=== PATIENT | female | born 1980 | race Caucasian/White ===

== ENCOUNTER → 2017-12-21 09:34 | Outpatient (CLI) | payer MEDICAID, SELFPAY ==
--- NOTE | 2017-12-21 09:47 | RAD_ITS ---
STUDY: X-RAY - LUMBAR SPINE REASON FOR EXAM: Female, 37 years old. Low back pain. TECHNIQUE: 5 view(s) of the lumbar spine were obtained including oblique views. COMPARISON: None FINDINGS: There is straightening of the normal lumbar lordosis. There is no substantial scoliosis. There is a normal alignment of the vertebrae. Normal vertebral bodies and endplates. Normal disc space heights. Surgical clips are seen in the right upper quadrant most likely secondary to prior cholecystectomy. There is evidence of bilateral tubal ligation. RAD/L/S Spine Min 4 Views IMPRESSION: Straightening of the normal lumbar lordosis. Electronically Signed: Rodrigo Arreola MD at 14:20 EST Tel [phone], Service support ,
--- NOTE | 2017-12-21 09:47 | RAD_ITS ---
STUDY: X-RAY - PELVIS AND BILATERAL HIPS REASON FOR EXAM: Female, 37 years old. Left hip pain. TECHNIQUE: Radiological exam, hip, bilateral, with pelvis when performed; minimum of 5 views COMPARISON: None. FINDINGS: Moderate amount of fecal material is seen in the colon. There is evidence of prior bilateral tubal ligation. There are multiple calcified phleboliths. Normal bilateral iliac wings, sacroiliac joints and visualized sacrum. Normal bilateral superior and inferior pubic rami. There is narrowing with sclerosis of the pubic symphysis. Normal bilateral ischial tuberosities. Normal visualized right femoral head. Normal right acetabulum. Normal right hip joint. Normal visualized left femoral head. Normal left acetabulum. Normal left hip joint. RAD/Hips B/L min 2 views w/ Pelvis IMPRESSION: Normal x-ray examination of the pelvis and bilateral hips. Electronically Signed: Rodrigo Arreola MD at 14:19 EST Tel [phone], Service support ,
[2017-12-21 12:12] LABS: Absolute Lymphocyte Count 1.32 X10^3/ul (0.83-4.51); Absolute Neutrophil Count 3.9 X10^3/uL (2.0-7.7); Basophil# 0.06 X10^3/uL; Eosinophil# 0.28 X10^3/uL; Eosinophils% 4.8 % (0-5); Hematocrit 39.1 % (37-47); Hemoglobin 12.9 g/dl (12.0-15.0); Lymphocyte # 1.32 X10^3/ul (4.0); Lymphocyte % 22.4 % (19-41); Mean Corpuscular Hgb 29.2 pg (27.0-32.0); Mean Corpuscular Volume 88.5 fL (81-99); Mean Platelet Vol. 9.6 fl (6.2-12.0); Monocyte# 0.33 X10^3/uL; Monocyte% 5.6 % (0-10); Neutrophil # 3.89 X10^3/uL (2.7-7.7); Neutrophil % 66.2 % (47-70); Platelet Count 218 K/mm3 (150-450); RBC Distribution Width CV 13.1 % (11.6-14.6); RBC Distribution Width SD 42.4 fl (35.1-43.9); Red Blood Count 4.42 M/mm3 (4.2-5.4); White Blood Count 5.9 K/mm3 (4.4-11.0)
[2017-12-21 12:14] LABS: POSITIVE COUNT NO; POSITIVE DIFFERENTIAL NO; POSITIVE MORPHOLOGY NO
[2017-12-21 12:32] LABS: AST(SGOT) 18 U/L (15-37); Alanine Aminotransfer ALT/SGPT 26 U/L (13-56); Albumin, Serum 3.7 g/dL (3.2-5.0); Alkaline Phosphatase 49 U/L (45-117); Anion Gap 9 (5-15); BUN 11 mg/dL (7-18); BUN/Creat Ratio 13.5 RATIO (10-20); Calcium,Total 8.5 mg/dL (8.5-10.1); Chloride 108 mmol/L (98-107); Cholesterol 194 mg/dL (200); Creatinine, Serum 0.82 mg/dL (0.55-1.02); EST Glomerular Filtration Rate 83 mL/min (>60); Est Glom Filt Rate - Afr Amer 101 mL/min (>60); Globulin 3.7 g/dL (2.2-4.2); Glucose 87 mg/dL (74-106); High Density Lipoprotein 60 mg/dL; Potassium 3.9 mmol/L (3.5-5.1); Protein, Total 7.4 g/dL (6.4-8.2); Sodium Level 141 mmol/L (136-145); T4 Free Direct 1.03 ng/dL (0.76-1.46); Thyroid Stim Hormone (TSH) 1.87 uIU/mL (0.358-3.74); Triglycerides 132 mg/dL; Very Low Density Lipoprotein 26 mg/dL (5-40)
== END ==
LOC: MFPLAB 09:39 → MTRAD 09:42
PROVIDERS: Family Provider Family Medicine; PCP Family Medicine; Visit Provider Family Medicine
DX: M54.16 Radiculopathy, lumbar region (principal); M25.551 Pain in right hip; M25.552 Pain in left hip; E66.9 Obesity, unspecified; Z13.220 Encounter for screening for lipoid disorders; Z83.49 Family history of other endocrine, nutritional and metabolic diseases
CPT/HCPCS: 36415; 72110; 73521; 80053; 80061; 84439; 84443; 85025

== ENCOUNTER → 2018-02-15 10:15 | Outpatient (CLI) | payer MEDICAID, SELFPAY ==
[2018-02-21 13:11] LABS: HPV Reflexed? NOT INDICATED
== END ==
PROVIDERS: Family Provider Family Medicine; PCP Family Medicine; Visit Provider Family Medicine
DX: Z01.419 Encounter for gynecological examination (general) (routine) without abnormal findings (principal)
CPT/HCPCS: 88175; G0145

== ENCOUNTER → 2018-08-27 15:21 | Outpatient (CLI) | payer MEDICAID, SELFPAY ==
[2018-08-27 18:16] LABS: Follicle Stimulating Hormone 2.8 mIU/mL; Luteinizing Hormone 9.3 mIU/mL; Thyroid Stim Hormone (TSH) 1.49 uIU/mL (0.358-3.74)
[2018-08-31 13:20] LABS: Estrogen, Total, Serum 111 pg/mL (.)
== END ==
PROVIDERS: Family Provider Family Medicine; PCP Family Medicine; Visit Provider Family Medicine
DX: R23.2 Flushing (principal)
CPT/HCPCS: 36415; 82672; 83001; 83002; 84443

== ENCOUNTER → 2018-12-18 15:51 | Outpatient (CLI) | payer MEDICAID, SELFPAY ==
--- NOTE | 2018-12-18 15:55 | RAD_ITS ---
STUDY: X-RAY - RIGHT ANKLE REASON FOR EXAM: Female, 38 years old. Ankle sprain, pain laterally TECHNIQUE: 3 view(s) of the ankle. COMPARISON: None. FINDINGS: Normal visualized distal tibia and fibula. Normal medial and lateral malleoli. Normal tibiotalar articulation and ankle mortise. Normal visualized talus and calcaneus. The visualized subtalar, talonavicular, calcaneocuboid and tarsal articulations are normal. The soft tissue structures are unremarkable. RAD/Ankle min 3 Views IMPRESSION: Normal x-ray examination of the ankle. Electronically Signed: Newton Mitchell MD at 20:40 EST , Service support ,
== END ==
PROVIDERS: Family Provider Family Medicine; PCP Family Medicine; Referring Provider Family Medicine; Visit Provider Family Medicine
DX: S93.401A Sprain of unspecified ligament of right ankle, initial encounter (principal); X58.XXXA Exposure to other specified factors, initial encounter; Y93.9 Activity, unspecified; Y92.9 Unspecified place or not applicable; Y99.9 Unspecified external cause status
CPT/HCPCS: 73610

== ENCOUNTER → 2019-03-12 14:55 | Outpatient (CLI) | payer MEDICAID, SELFPAY ==
--- NOTE | 2019-03-12 15:00 | RAD_ITS ---
STUDY: X-RAY - LEFT HAND REASON FOR EXAM: Female, 38 years old. Left hand pain for couple weeks TECHNIQUE: 3 view(s) of the hand. COMPARISON: None. FINDINGS: Normal radiocarpal articulation. Normal distal radioulnar joint. Normal visualized carpal bones. Normal carpal articulations Normal carpometacarpal articulation of the thumb. Normal second through fifth carpometacarpal joints. Normal metacarpi. Normal metacarpophalangeal joint of the thumb. Normal interphalangeal joint of the thumb. Normal proximal and distal phalanges of the thumb. Normal metacarpophalangeal joints of the second through fifth fingers. Normal proximal and distal interphalangeal joints of the second through fifth fingers. Normal phalanges of the second through fifth fingers. The soft tissue structures are unremarkable. RAD/Hand Min 3 Views IMPRESSION: Normal x-ray examination of the hand. Electronically Signed: Julio Cesar Malloy MD at 13:33 EDT , Service support ,
== END ==
PROVIDERS: Family Provider Family Medicine; PCP Family Medicine; Referring Provider Family Medicine; Visit Provider Family Medicine
DX: Z00.00 Encounter for general adult medical examination without abnormal findings (principal); M25.549 Pain in joints of unspecified hand
CPT/HCPCS: 73130

== ENCOUNTER → 2020-04-19 12:40 | Outpatient (CLI) | payer MEDICAID, SELFPAY ==
--- NOTE | 2020-04-19 12:45 | RAD_ITS ---
STUDY: X-RAY - RIGHT ANKLE REASON FOR EXAM: Female, 39 years old. Pain. TECHNIQUE: 3 view(s) of the ankle. COMPARISON: Comparison is made with prior examination dated December 18, 2018. FINDINGS: Normal visualized distal tibia and fibula. Normal medial and lateral malleoli. Normal tibiotalar articulation and ankle mortise. Normal visualized talus and calcaneus. The visualized subtalar, talonavicular, calcaneocuboid and tarsal articulations are normal. The soft tissue structures are unremarkable. RAD/Ankle min 3 Views IMPRESSION: Normal x-ray examination of the ankle. Electronically Signed: Rodrigo Arreola, at 15:07 EDT , Service support ,
== END ==
PROVIDERS: PCP Family Medicine; Referring Provider Family Medicine; Visit Provider Family Medicine
DX: M25.571 Pain in right ankle and joints of right foot (principal)
CPT/HCPCS: 73610

== ENCOUNTER → 2020-11-09 15:46 | Outpatient (CLI) | payer MEDICAID, SELFPAY ==
--- NOTE | 2020-11-09 15:50 | RAD_ITS ---
STUDY: X-RAY - LEFT HAND REASON FOR EXAM: Female, 40 years old. Left second digit pain/swelling after recent injury TECHNIQUE: 3 view(s) of the hand. COMPARISON: Comparison is made with prior study dated 03/12/2019. FINDINGS: Normal radiocarpal articulation. Normal distal radioulnar joint. Normal visualized carpal bones. Normal carpal articulations Normal carpometacarpal articulation of the thumb. Normal second through fifth carpometacarpal joints. Normal metacarpi. Normal metacarpophalangeal joint of the thumb. Normal interphalangeal joint of the thumb. Normal proximal and distal phalanges of the thumb. Normal metacarpophalangeal joints of the second through fifth fingers. Normal proximal and distal interphalangeal joints of the second through fifth fingers. Normal phalanges of the second through fifth fingers. The soft tissue structures are unremarkable. RAD/Hand Min 3 Views IMPRESSION: Normal x-ray examination of the hand. Electronically Signed: Rodrigo Arreola, at 16:02 EST , Service support ,
== END ==
PROVIDERS: PCP Family Medicine; Referring Provider Family Medicine; Visit Provider Family Medicine
DX: M79.645 Pain in left finger(s) (principal)
CPT/HCPCS: 73130

== ENCOUNTER → 2021-02-14 14:12 | Outpatient (CLI) | payer MEDICAID, SELFPAY ==
--- NOTE | 2021-02-14 14:14 | RAD_ITS ---
STUDY: X-RAY - RIGHT FOOT CLINICAL: Right foot pain for a few days, no specific injury. TECHNIQUE: 3 view(s) of the foot. COMPARISON: Radiographs of the right ankle 12/18/2018. FINDINGS: Normal talus, calcaneus, and tarsal bones. Normal visualized subtalar, talonavicular, calcaneocuboid, tarsal and tarsometatarsal articulations. Normal metatarsi. Normal metatarsophalangeal joint of the great toe. Normal tibial and fibular sesamoid bones. Normal interphalangeal joint of the great toe. Normal phalanges of the great toe. Normal second through fifth metatarsophalangeal joints. Normal interphalangeal joints and phalanges of the lesser toes. The soft tissue structures are unremarkable. RAD/Foot min 3 Views IMPRESSION: Normal x-ray examination of the right foot. Electronically Signed: Vciente Sellers MD at 14:50 EDT Tel , Service support ,
== END ==
PROVIDERS: PCP Family Medicine; Referring Provider Nurse Practitioner Family; Visit Provider Nurse Practitioner Family
DX: M79.671 Pain in right foot (principal)
CPT/HCPCS: 73630

== ENCOUNTER → 2021-07-05 10:26 | Outpatient (CLI) | payer MEDICAID, SELFPAY ==
[2021-07-05 10:28] LABS: Lyme Ab Screen Interpretation REF LAB
--- NOTE | 2021-07-05 10:32 | RAD_ITS ---
STUDY: X-RAY - LEFT KNEE REASON FOR EXAM: Female, 41 years old. Joint pain. TECHNIQUE: 4 view(s) of the knee. COMPARISON: None. FINDINGS: Normal visualized distal femur. Normal visualized proximal tibia and fibula. Normal proximal tibiofibular articulation. Normal medial femorotibial compartment. Normal lateral femorotibial compartment. Normal patellofemoral articulation. The soft tissue structures are unremarkable. RAD/Knee 4 or More Views IMPRESSION: No abnormality of the left knee. No acute abnormality, erosive changes or periostitis. Electronically Signed: Evgeny Hamilton MD at 11:39 EDT , Service support ,
--- NOTE | 2021-07-05 10:33 | RAD_ITS ---
STUDY: X-RAY - RIGHT KNEE REASON FOR EXAM: Female, 41 years old. Maintained. TECHNIQUE: 4 view(s) of the knee. COMPARISON: None. FINDINGS: Normal visualized distal femur. Normal visualized proximal tibia and fibula. Normal proximal tibiofibular articulation. Mild medial compartmental narrowing without osteophyte formation. Normal lateral femorotibial compartment. Normal patellofemoral articulation. The soft tissue structures are unremarkable. 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 No other abnormality. Electronically Signed: Evgeny Hamilton MD at 11:39 EDT , Service support ,
[2021-07-05 12:12] LABS: Absolute Lymphocyte Count 1.27 X10^3/uL (0.83-4.51); Absolute Neutrophil Count 4.6 X10^3/uL (2.0-7.7); Basophil# 0.06 X10^3/uL; Basophil% 0.9 % (0-1); Eosinophil# 0.23 X10^3/uL; Eosinophils% 3.6 % (0-5); Hematocrit 39.1 % (37-47); Hemoglobin 12.8 g/dL (12.0-15.0); Lymphocyte # 1.27 X10^3/ul (0.83-4.51); Lymphocyte % 19.8 % (19-41); Mean Corp Hgb Conc 32.7 g/dL (32-36); Mean Corpuscular Hgb 29.4 pg (27.0-32.0); Mean Corpuscular Volume 89.7 fL (81-99); Mean Platelet Vol. 9.5 fl (6.2-12.0); Monocyte% 4.7 % (0-10); NRBC Flagged by Analyzer 0 % (0-5); Neutrophil # 4.55 X10^3/uL (2.7-7.7); Neutrophil % 70.8 % (47-70); Platelet Count 261 K/mm3 (150-450); RBC Distribution Width CV 12.7 % (11.6-14.6); RBC Distribution Width SD 41.4 fl (35.1-43.9); Red Blood Count 4.36 M/mm3 (4.2-5.4); White Blood Count 6.4 K/mm3 (4.4-11.0)
[2021-07-05 12:37] LABS: Vitamin B12 386 pg/mL (211-911); Vitamin D,25 Hydroxy 18.6 ng/mL
[2021-07-05 12:44] LABS: AST(SGOT) 13 U/L (15-37); Alanine Aminotransfer ALT/SGPT 25 U/L (13-56); Albumin, Serum 3.7 g/dL (3.2-5.0); Alkaline Phosphatase 51 U/L (45-117); Anion Gap 2 (5-15); BUN 14 mg/dL (7-18); BUN/Creat Ratio 17.7 RATIO (10-20); Calcium,Total 8.9 mg/dL (8.5-10.1); Chloride 109 mmol/L (98-107); Creatinine, Serum 0.79 mg/dL (0.55-1.02); EST Glomerular Filtration Rate 85 mL/min (>60); Est Glom Filt Rate - Afr Amer 103 mL/min (>60); Globulin 3.8 g/dL (2.2-4.2); Glucose 91 mg/dL (74-106); Potassium 4.1 mmol/L (3.5-5.1); Protein, Total 7.5 g/dL (6.4-8.2); Sodium Level 139 mmol/L (136-145); Thyroid Stim Hormone (TSH) 1.61 uIU/mL (0.358-3.74)
[2021-07-06 14:20] LABS: Lyme Scn Total Ab w/Rflx <0.91 ISR (0.00-0.90)
== END ==
PROVIDERS: PCP Family Medicine; Referring Provider Family Medicine; Visit Provider Family Medicine
DX: M25.50 Pain in unspecified joint (principal); R53.83 Other fatigue; W57.XXXA Bitten or stung by nonvenomous insect and other nonvenomous arthropods, initial encounter
CPT/HCPCS: 36415; 73564; 80053; 82306; 82607; 84443; 85025; 86618

== ENCOUNTER 2021-08-01 05:25 | Day surgery (SDC) | payer MEDICAID, SELFPAY ==
[2021-08-01] VITALS (7 sets, daily range): BP systolic 106–110; BP diastolic 73–79; PULSE 58–66; RESP 16; TEMP 36.5–36.6; O2SAT 96–99; BMI 35.9
--- NOTE | 2021-08-01 | EGD_PTH ---
PATIENT: BERNARDINO GERARD LOC: EN U#:[id number] AGE/SX: 41/F ROOM: RE08/01/[address]: Dr. Luis Cain MD : 1980 BED: DIS: 08/01/2021 SPEC #: [id number] RECD: 08/01/21 09:41 STATUS: ROEL ALBERTO #: [id number] LEODAN: 08/01/21 00:[address]: Luis Cain DEPT: SURGICAL PATHOLOGY RECD BY: Bassem Jin ENTERED: 08/01/21 12:06 SP TYPE: EGD BIOPSY OT DR: Dr. Brian Garcia MD Tissues: A - Duodenum, NOS B - Gastric mucous membrane C - Stomach, NOS D - Esophageal mucous membrane E - Esophageal mucous membrane Procedures: Special Stain Group II Surgery Specimen Level IV Alcian Blue/PAS (control) HEADER OPERATION: EGD ([facility]) PRE-OP DIAGNOSIS: GERD TISSUE SUBMITTED: A ? Duodenum biopsy, B ? Antrum biopsy for histo and H. pylori, C ? Greater curvature polyp biopsy, D ? Distal esophagus biopsy, E ? Mid esophagus biopsy MICROSCOPIC DIAGNOSIS A. Duodenum, biopsy: Mild nonspecific chronic inflammation. B. Gastric antrum, biopsy: Chronic gastritis. See comment. C. Greater gastric curvature polyp, biopsy: Fundic gland polyp. D. Distal esophagus, biopsy: Consistent with changes of reflux. Gastroesophageal junctional mucosa with chronic inflammation. No evidence of goblet cell metaplasia. See comment. E. Mid esophagus, biopsy: Focal changes of reflux. AM:kem 08/02/2021 COMMENT B. The results of immunohistochemistry for Helicobacter pylori will be reported separately ([id number]). D. Alcian blue/PAS stain with matched control supports the above diagnosis. MICROSCOPIC DESCRIPTION Slides are reviewed. GROSS DESCRIPTION A - Received in fixative is one container labeled with the patient's name and designated duodenum biopsy. The specimen consists of multiple irregular fragments of light villafuerte soft tissue that in aggregate measure 0.5 x 0.5 x 0.1 cm. The specimen is totally submitted in one cassette. B - Received in fixative is one container labeled with the patient's name and designated antrum biopsy. The specimen consists of one irregular fragment of light villafuerte soft tissue that measures 0.6 x 0.3 x 0.1 cm. The specimen is totally submitted in one cassette. C - Received in fixative is one container labeled with the patient's name and designated greater curvature polyp. The specimen consists of one irregular fragment of light villafuerte soft tissue that measures 0.3 x 0.3 x 0.1 cm. The specimen is totally submitted in one cassette. D - Received in fixative is one container labeled with the patient's name and designated distal esophagus biopsy. The specimen consists of multiple irregular fragments of light villafuerte soft tissue that in aggregate measure 2 x 0.6 x 0.1 cm. The specimen is totally submitted in one cassette. E - Received in fixative is one container labeled with the patient's name and designated mid esophagus biopsy. The specimen consists of multiple irregular fragments of light villafuerte soft tissue that in aggregate measure 0.6 x 0.2 x 0.1 cm. The specimen is totally submitted in one cassette. / AM:kem 08/01/21 TC:3 CPT: 05993 x5, 36400
--- NOTE | 2021-08-01 05:45 | PCM.HP.BLA ---
History and Physical Date of Admission: 08/01/21 Visit Reasons: Gastroesophageal reflux disease (GERD) Chief Complaint: gerd [employer] Required: No Is patient in pain?: No Allergies acetaminophen [From Vicodin] Allergy (Mild, Verified 07/18/21 15:01) Other adhesive tape Allergy (Mild, Verified 07/18/21 15:01) PT UNSURE OF REACTION hydrocodone [From Vicodin] Allergy (Mild, Verified 07/18/21 15:01) Other Medications ergocalciferol (vitamin D2) 50 mcg (2,000 unit) capsule 50 mcg PO DAILY 07/18/21 [History Confirmed 07/18/21] famotidine 10 mg tablet 10 mg PO DAILY 07/18/21 [History Confirmed 07/18/21] omeprazole 40 mg capsule,delayed release 40 mg PO DAILY 07/18/21 [History Confirmed 07/18/21] PFS Medical History Gastroesophageal reflux disease Surgical History S/P appendectomy S/P endometrial ablation S/P laparoscopic cholecystectomy S/P tonsillectomy and adenoidectomy S/P tubal ligation Family History Brother Asthma CAD (coronary artery disease) CVA (cerebral vascular accident) Mother Thyroid disorder Daughter Seizures Social History Smoking Status: Former smoker alcohol intake: never HPI: BERNARDINO GERARD, is a 41 F who presents to the office today for surgical consultation regarding reflux disease. The patient is also having esophageal dysphagia. Her reflux heartburn has been going on for multiple years. Within the past year she has had more difficulty swallowing particularly potatoes and pineapple. She states however that she likes potatoes and pineapple and continues to consume them. She has been taking famotidine 20 mg nightly. She has also been taking some type of truly [id number] antacid. Just recently she was placed on omeprazole 40 [address] daily therapy per Dr Brian Garcia. She also states that for him will milkshakes help calm her discomfort. Apparently sometimes she has episodes of vomiting. In the past she has elevated head of her bed but now they have foregone that because they do not feel it makes any improvement. The patient is referred by Dr Brian Garcia and a written copy of my surgical consult and recommendations will return to him Approximately June 2020 they had COVID-19. She had loss of taste. She denies any residual symptoms. Neither she nor her have been vaccinated. She has not had a previous upper endoscopy. The patient states that she has a significant gag response. Body weight is 237 pounds. BMI is approximately 35. Her previous abdominal surgery included a complicated ruptured appendicitis done through an open right lower quadrant incision. She has had a previous cholecystectomy. Previous oophorectomy. Previous tubal ligation. She denies history of DVT ROS General General: Yes fatigue; No weight change, appetite, colon cancer, breast cancer or weakness HEENT HEENT: No difficulty swallowing, eye injury, eye surgery, swollen glands or hoarseness Endo Endocrine: No thyroid disease, diabetes mellitus, thyroid cancer, Hair loss, heat intolerance or cold intolerance Skin Skin: No rash or changing moles Breast Breast: No left breast lump, right breast lump, nipple discharge, breast pain, abnormal mammogram, abnormal US or breast enlargement Musc Musculoskeletal: Yes arthritis; No back problems, rheumatoid arthritis, gout or joint pain Cardio Cardiovascular: No murmur, pacemaker, heart disease, atrial fibrillation, high blood pressure, heart attack, heart stent, palpitations, shortness of breat with exertion or chest pain Psych Psychiatric: No depression, anxiety or hearing voices Resp Respiratory: No shortness of breath, No sleep apnea, Yes cough, No COPD, Yes asthma, No emphysema and No wheezing Gastro Gastrointestinal: No abdominal pain, No nausea or vomiting, No diarrhea, No constipation, No blood in stool, Yes acid reflux, No hemorrhoids, No ulcers, No gallbladder problem and No black,tarry stools Blue Hematologic: No blood thinners, No blood disorders, No bleeding, No anemia and No blood clots Neuro Neurologic: No system reviewed and no additional complaints, except as documented, No as per HPI, No abnormal gait, No abnormal hearing, No abnormal movements, No abnormal speech, No behavioral changes, No burning sensations, No confusion, No convulsions, No disequilibrium, No dizziness, No localized weakness, No frequent falls, No headache(s), No lack of coordination, No loss of vision, No memory loss, No numbness, No other visual disturbances, No radicular pain, No restless legs, No sensory deficit, No syncope, No tingling, No tremor(s), No weakness and No other Exam Const General: cooperative, comfortable and no acute distress Nutritional Appearance: obese Orientation: alert and awake HENRI Head: normal to inspection Eyes General: appearance normal, both eyes and all related structures Resp Effort & Inspection: normal respiratory effort Auscultation: clear to auscultation bilaterally Cardio Rate: regular rate Rhythm: regular rhythm GI Palpation: soft and no hepatosplenomegaly Auscultation: normal bowel sounds Skin General: no rashes or lesions noted Neuro Cognition: normal cognition Extrem General: no calf tenderness Psych Affect: normal affect COVID (Procedure Consent) Procedure Criteria Procedure Criteria: Yes Elective The surgeon/proceduralist and patient have discussed in detail the risk of exposure to and/or potential harm posed by the COVID-19 virus with having a surgery/procedure at this time versus the risk of delaying the surgery/procedure. It is not possible to know either the risk of delaying the surgery or procedure or chance of getting an infection with perfect accuracy, but a joint decision was made between the patient and the surgeon/proceduralist to proceed at this time with the scheduled surgery/procedure as indicated on the consent form. Assessment and Plan Assessment and Plan (1) Gastroesophageal reflux disease: Qualifiers: Esophagitis presence: esophagitis presence not specified Qualified Code(s): K21.9 - Gastro-esophageal reflux disease without esophagitis Plan - Dr. Luis Cain MD: Findings consistent with long-term gastroesophageal reflux disease. The patient appears to have specific food intolerances making the question of eosinophilic esophagitis a potential. She is having some esophageal dysphagia and may have some stricturing. I propose for her a esophagogastroduodenoscopy. Because of her gag reflex I recommend monitored anesthesia care. I have discussed the risk, benefit, alternatives. If an esophageal stricture is present I have discussed with her proceeding with esophageal dilatation at that same setting. She is aware of increased risk of dilatation in the presence of eosinophilic esophagitis. I additionally proposed again conservative measures like avoiding reflux potentiating foods and not eating within 2 hours of sleep and avoiding alcohol and head of bed elevation etc. I am not sure however that the patient is interested in pursuing these. I appreciate the opportunity of assisting with her surgical care. We will schedule and expedite her investigation. Copy: Dr Brian Cain M.D., F.A.C.S. I have re-examined the patient. There are no clinical changes since date of exam.
--- NOTE | 2021-08-01 06:30 | IMM_PTH ---
PATIENT: BERNARDINO GERARD LOC: EN U#:[id number] AGE/SX: 41/F ROOM: RE08/01/[address]: Dr. Luis Cain MD : 1980 BED: DIS: 08/01/2021 SPEC #: [id number] RECD: 08/01/21 14:36 STATUS: ROEL REKim #: [id number] LEODAN: 08/01/21 06:[address]: Luis Cain DEPT: IMMUNOHISTOCHEMISTRY RECD BY: Shikha Lee ENTERED: 08/01/21 14:38 SP TYPE: IMMUNO OTHR DR: Dr. Brian Garcia MD Tissues: B - Stomach, NOS Procedures: H Pylori (initial) PHYSICIAN & INSTITUTION [place] [id number] SPECIMEN INFORMATION: Tissue Source: B ? Antrum biopsy Clinical Info: GERD Specimen Number: [id number] CPT code: 07298 METHODOLOGY: Deparaffinized sections of prefer/formalin-fixed tissue or PAP/DQ stained slides are incubated with monoclonal/polyclonal antibodies/oligonucleotide probes. Localization is made via biotin free immunoperoxidase method. Appropriate controls are performed and reacted as expected. Results on target cell population are indicated in the following table: RESULTS: ANTIBODY / CLONE RESULT Block B H Pylori (polyclonal) negative These tests were developed and their performance characteristics determined by [facility]. They may not have been cleared or approved by the U.S. Food and Drug Administration. The FDA has determined that such clearance or approval is not necessary. INTERPRETATION: B. Antrum biopsy: Negative for Helicobacter pylori organisms. AM:kem 08/02/2021
--- NOTE | 2021-08-01 06:51 | OP.CCLET_ITS ---
08/01/2021 Brian Garcia [address] [place] [address] Re : Upper GI endoscopy procedure for Swetha Hinojosa Dear Dr. Garcia This procedure was performed on Sunday, August 01, 2021. My impressions and recommendations are as follows: Impressions : - LA Grade A reflux esophagitis. Rule out Rodriguez's esophagus. Biopsied. - Normal middle third of esophagus. Biopsied. - Z-line irregular, 40 cm from the incisors. - Medium-sized hiatal hernia. - Multiple gastric polyps. Resected and retrieved. - Erythematous mucosa in the antrum. Biopsied. - Normal examined duodenum. Biopsied. Recommendations : - Discharge patient to home. - Resume previous diet. - Continue present medications. - Return to my office in 1 week. My findings are described in the full procedure note, which is enclosed. If I can be of further assistance, please feel free to contact me at Doctor phone number(s): Work: . Sincerely, Luis Cain MD 08/01/2021 6:50:03 AM This report has been signed electronically.
--- NOTE | 2021-08-01 06:51 | OP.EGD_ITS ---
Patient Name: Swetha Hinojosa Procedure Date: 08/01/2021 6:16 AM Date of : 1980 Age: 41 Procedure: Upper GI endoscopy Indications: Suspected esophageal reflux Providers: Luis Cain MD Medicines: See the Anesthesia note for documentation of the administered medications Complications: No immediate complications. Procedure: Pre-Anesthesia Assessment: - Prior to the procedure, a History and Physical was performed, and patient medications and allergies were reviewed. The patient's tolerance of previous anesthesia was also reviewed. The risks and benefits of the procedure and the sedation options and risks were discussed with the patient. All questions were answered, and informed consent was obtained. Prior Anticoagulants: The patient has taken no previous anticoagulant or antiplatelet agents. ASA Grade Assessment: II - A patient with mild systemic disease. After reviewing the risks and benefits, the patient was deemed in satisfactory condition to undergo the procedure. After obtaining informed consent, the endoscope was passed under direct vision. Throughout the procedure, the patient's blood pressure, pulse, and oxygen saturations were monitored continuously. The Endoscope was introduced through the mouth, and advanced to the second part of duodenum. The upper GI endoscopy was accomplished without difficulty. The patient tolerated the procedure well. Scope In: 6:33:01 AM Scope Out: 6:42:29 AM Total Procedure Duration Time 0 hours 9 minutes 28 seconds Findings: LA Grade A (one or more mucosal breaks less than 5 mm, not extending between tops of 2 mucosal folds) esophagitis with no bleeding was found 40 cm from the incisors. Biopsies were taken with a cold forceps for histology. The middle third of the esophagus was normal. Biopsies were taken with a cold forceps for histology. The Z-line was irregular and was found 40 cm from the incisors. A medium-sized hiatal hernia was present. Multiple pedunculated and sessile polyps with no bleeding and no stigmata of recent bleeding were found in the gastric fundus. The polyp was removed with a cold biopsy forceps. Resection and retrieval were complete. Diffuse mildly erythematous mucosa without bleeding was found in the gastric antrum. Biopsies were taken with a cold forceps for histology. The examined duodenum was normal. Biopsies were taken with a cold forceps for histology. Impression: - LA Grade A reflux esophagitis. Rule out Rodriguez's esophagus. Biopsied. - Normal middle third of esophagus. Biopsied. - Z-line irregular, 40 cm from the incisors. - Medium-sized hiatal hernia. - Multiple gastric polyps. Resected and retrieved. - Erythematous mucosa in the antrum. Biopsied. - Normal examined duodenum. Biopsied. Recommendation: - Discharge patient to home. - Resume previous diet. - Continue present medications. - Return to my office in 1 week. Procedure Code(s): --- Professional --- 39153, Esophagogastroduodenoscopy, flexible, transoral; with biopsy, single or multiple Diagnosis Code(s): --- Professional --- K21.0, Gastro-esophageal reflux disease with esophagitis K22.8, Other specified diseases of esophagus K44.9, Diaphragmatic hernia without obstruction or gangrene K31.7, Polyp of stomach and duodenum K31.89, Other diseases of stomach and duodenum CPT copyright 2017 [employer]. All rights reserved. The codes documented in this report are preliminary and upon pathological technician review may be revised to meet current compliance requirements. Luis Cain MD 08/01/2021 6:50:03 AM This report has been signed electronically. Number of Addenda: 0 Note Initiated On: 08/01/2021 6:16 AM
--- NOTE | 2021-08-01 07:15 | SUR.PREOP ---
pt had 200 ml of normal saline.
== END 2021-08-01 07:25 | disposition home or self-care (01) ==
LOC: EN 05:25 → AC 05:25
PROVIDERS: PCP Family Medicine; Referring Provider Surgery; Visit Provider Surgery
PROC: 0DJ08ZZ Inspection of Upper Intestinal Tract, Via Natural or Artificial Opening Endoscopic (ICD-10-PCS; CPT 43235; principal; 2021-08-01 06:25)
DX: K21.00 Gastro-esophageal reflux disease with esophagitis, without bleeding (principal); K29.50 Unspecified chronic gastritis without bleeding; K44.9 Diaphragmatic hernia without obstruction or gangrene; K31.7 Polyp of stomach and duodenum; K29.80 Duodenitis without bleeding; R13.14 Dysphagia, pharyngoesophageal phase; J45.909 Unspecified asthma, uncomplicated; D64.9 Anemia, unspecified; M19.90 Unspecified osteoarthritis, unspecified site; Z79.899 Other long term (current) drug therapy; Z86.16 Personal history of COVID-19; Z87.891 Personal history of nicotine dependence
CPT/HCPCS: 43239; 87426; 88305; 88313; 88342; C9803; J7120; J2405

== ENCOUNTER → 2021-08-02 09:46 | Outpatient (CLI) | payer MEDICAID, SELFPAY ==
--- NOTE | 2021-08-02 09:48 | RAD_ITS ---
STUDY: X-RAY - LEFT HAND REASON FOR EXAM: Female, 41 years old. Hand pain. TECHNIQUE: 3 view(s) of the hand. COMPARISON: None. FINDINGS: Normal radiocarpal articulation. Normal distal radioulnar joint. Normal visualized carpal bones. Normal carpal articulations Normal carpometacarpal articulation of the thumb. Normal second through fifth carpometacarpal joints. Normal metacarpi. Normal metacarpophalangeal joint of the thumb. Normal interphalangeal joint of the thumb. Normal proximal and distal phalanges of the thumb. Normal metacarpophalangeal joints of the second through fifth fingers. Normal proximal and distal interphalangeal joints of the second through fifth fingers. Normal phalanges of the second through fifth fingers. The soft tissue structures are unremarkable. RAD/Hand Min 3 Views IMPRESSION: No abnormality of the hand. No acute finding, chondrocalcinosis, erosive changes or periostitis. Electronically Signed: Evgeny Hamilton MD at 11:40 EDT , Service support ,
--- NOTE | 2021-08-02 09:48 | RAD_ITS ---
STUDY: X-RAY - RIGHT HAND REASON FOR EXAM: Female, 41 years old. Hand pain. TECHNIQUE: 3 view(s) of the hand. COMPARISON: None. FINDINGS: Normal radiocarpal articulation. Normal distal radioulnar joint. Normal visualized carpal bones. Normal carpal articulations Normal carpometacarpal articulation of the thumb. Normal second through fifth carpometacarpal joints. Normal metacarpi. Normal metacarpophalangeal joint of the thumb. Normal interphalangeal joint of the thumb. Normal proximal and distal phalanges of the thumb. Normal metacarpophalangeal joints of the second through fifth fingers. Normal proximal and distal interphalangeal joints of the second through fifth fingers. Normal phalanges of the second through fifth fingers. The soft tissue structures are unremarkable. RAD/Hand Min 3 Views IMPRESSION: No abnormality of the hand. No acute finding, chondrocalcinosis, erosive changes or periostitis. Electronically Signed: Evgeny Hamilton MD at 11:40 EDT , Service support ,
[2021-08-02 12:38] LABS: Erythrocyte Sedimentation Rate 4 mm/hr (0-30)
[2021-08-02 12:40] LABS: Rheumatoid Factor < 10.0 IU/mL (<15)
[2021-08-03 14:53] LABS: ANTINUCLEAR ANTIBODIES DIRECT Negative (Negative)
== END ==
PROVIDERS: PCP Family Medicine; Referring Provider Family Medicine; Visit Provider Family Medicine
DX: M79.641 Pain in right hand (principal); M79.642 Pain in left hand
CPT/HCPCS: 36415; 73130; 85652; 86038; 86431

== ENCOUNTER → 2021-08-18 08:56 | Day surgery (SDC) | payer MEDICAID, SELFPAY ==
[2021-08-18 09:25] VITALS: BP 106/72; PULSE 60; RESP 18; TEMP 36.3; O2SAT 98
[2021-08-18] MEDS: Lidocaine Jelly 2% 20 ML Syringe (URO-JET) 20 APPLIC (09:30)
== END ==
PROVIDERS: PCP Family Medicine; Referring Provider Surgery; Visit Provider Surgery
PROC: F00ZJWZ Instrumental Swallowing and Oral Function Assessment using Swallowing Equipment (ICD-10-PCS; CPT 43235; principal; 2021-08-18 08:55)
DX: K21.9 Gastro-esophageal reflux disease without esophagitis (principal); Z53.9 Procedure and treatment not carried out, unspecified reason; Z20.822 Contact with and (suspected) exposure to COVID-19
CPT/HCPCS: 91010; 87426; C9803

== ENCOUNTER → 2021-09-01 08:26 | Outpatient (CLI) | payer MEDICAID, SELFPAY ==
--- NOTE | 2021-09-01 08:27 | RAD_ITS ---
STUDY: AIR CONTRAST UPPER GI SERIES and esophagram. REASON FOR EXAM: Female, 41 years old. K21.9 - Gastro-esophageal reflux disease without esophagitis FLUOROSCOPY TIME (if supplied): (53 seconds) minutes/seconds. 16 images were obtained. TECHNIQUE: SINGLE CONTRAST AND AIR CONTRAST FLUOROSCOPIC IMAGES. COMPARISON: None. FINDINGS: The cervical esophagus demonstrates normal motility without aspiration. There is no stricture or extrinsic mass effect. No intraluminal polypoid mass is identified. The thoracic esophagus distends well without stricture or mucosal fold thickening. No mucosal ulcerations are identified. There is no extrinsic mass effect. There are no diverticula. There is evidence of a small sliding hiatal hernia without gastroesophageal reflux. The patient ingested a 12 mm tablet at bedtime without any difficulty. The stomach distends well without mucosal fold thickening or mucosal ulceration. There is no intraluminal mass. The duodenal bulb is freely distensible without deformity or ulceration. The duodenal sweep is normal in position and caliber. RAD/Upper GI w/BA Swallow IMPRESSION: Small sliding hernia without gastroesophageal reflux. Electronically Signed: Rodrigo Arreola MD at 13:15 EDT , Service support ,
== END ==
PROVIDERS: PCP Family Medicine; Referring Provider Surgery; Visit Provider Surgery
DX: K21.9 Gastro-esophageal reflux disease without esophagitis (principal)
CPT/HCPCS: 74246

== ENCOUNTER 2021-09-14 05:54 | Day surgery (SDC) | payer MEDICAID, SELFPAY ==
[2021-09-13 16:43] LABS: Hematocrit 36.6 % (37-47); Hemoglobin 12.3 g/dL (12.0-15.0); Mean Corp Hgb Conc 33.6 g/dL (32-36); Mean Corpuscular Hgb 29.4 pg (27.0-32.0); Mean Corpuscular Volume 87.4 fL (81-99); Mean Platelet Vol. 9.8 fl (6.2-12.0); Platelet Count 219 K/mm3 (150-450); RBC Distribution Width CV 12.6 % (11.6-14.6); RBC Distribution Width SD 40.2 fl (35.1-43.9); Red Blood Count 4.19 M/mm3 (4.2-5.4); White Blood Count 7.7 K/mm3 (4.4-11.0)
[2021-09-13 17:39] LABS: Anion Gap 8 (5-15); BUN 11 mg/dL (7-18); BUN/Creat Ratio 12.5 RATIO (10-20); Calcium,Total 9.3 mg/dL (8.5-10.1); Chloride 106 mmol/L (98-107); Creatinine, Serum 0.88 mg/dL (0.55-1.02); EST Glomerular Filtration Rate 75 mL/min (>60); Est Glom Filt Rate - Afr Amer 90 mL/min (>60); Estimated Creatinine Clearance 84.01 ml/min; Glucose 71 mg/dL (74-106); Potassium 3.6 mmol/L (3.5-5.1); Sodium Level 139 mmol/L (136-145)
[2021-09-14] VITALS (15 sets, daily range): BP systolic 104–135; BP diastolic 49–87; PULSE 60–80; RESP 16; TEMP 36–36.9; O2SAT 95–100; BMI 55.3
--- NOTE | 2021-09-14 06:35 | HP.PCM_ITS ---
History and Physical Date of Admission: 09/14/21 Intake Visit Reasons: F/U 08/01 DISCUSS EGD RESULTS FROM EGD Chief Complaint: F/U EGD/manometry 08/01 Melter Helper Required: No Accompanied by: Is patient in pain?: No Allergies acetaminophen [From Vicodin] Allergy (Mild, Verified 08/25/21 08:14) Other adhesive tape Allergy (Mild, Verified 08/25/21 08:14) PT UNSURE OF REACTION hydrocodone [From Vicodin] Allergy (Mild, Verified 08/25/21 08:14) Other Medications ergocalciferol (vitamin D2) 50 mcg (2,000 unit) capsule 50 mcg PO QWEEK 07/18/21 [History Confirmed 08/25/21] famotidine 10 mg tablet 10 mg PO DAILY 07/18/21 [History Confirmed 08/25/21] omeprazole 40 mg capsule,delayed release 40 mg PO DAILY 07/18/21 [History Confir med 08/25/21] albuterol 90 mcg INHALATION PRN PRN 07/27/21 [History Confirmed 08/25/21] loratadine [Claritin] 10 mg PO PRN PRN 07/27/21 [History Confirmed 08/25/21] PFSH Medical History Anemia Arthritis Asthma Chronic cough Former smoker Gastric reflux Gastroesophageal reflux disease Wears glasses Surgical History History of esophagogastroduodenoscopy (EGD) S/P appendectomy S/P endometrial ablation S/P laparoscopic cholecystectomy S/P tonsillectomy and adenoidectomy S/P tubal ligation Family History Brother Asthma CAD (coronary artery disease) CVA (cerebral vascular accident) Mother Thyroid disorder Daughter Seizures Social History Smoking Status: Former smoker alcohol intake: never HPI HPI HPI: BERNARDINO GERARD, is a 41 F who presents to the office today for ongoing surgical consultation regarding reflux disease. I initially had an opportunity to see her in the office on July 18 regarding esophageal dysphagia and reflux and heartburn for multiple years. She has been on famotidine 20 mg daily. She takes [id number] antacids. At that point she was recently placed on omeprazole 40 mg daily as well. She tries using milkshakes to help calm her discomfort. She also notes that approximately June 2020 she had COVID-19. She had a loss of taste. Body weight 237 pounds with a BMI of 35. Her previous abdominal surgery included a complicated ruptured appendicitis done through an open right lower quadrant incision. She has previously had a cholecystectomy oophorectomy and tubal ligation. We have had a chance to discuss conservative treatment options as well. On August 01, 2021 performed an upper endoscopy for her. Reflux esophagitis was identified. Z-line was irregular and 40 cm. A medium size hiatal hernia noted. Multiple gastric polyps. The antral mucosa was erythematous. Biopsies showed nonspecific chronic inflammation of the duodenum and chronic gastritis H. pylori is negative and benign gastric fundic polyp and findings of the distal esophagus consistent with reflux disease chronic inflammation but without evidence of Rodriguez's. The mid esophagus also demonstrated changes consistent with reflux. An attempt was made to pursue esophageal manometry but this failed secondary to coiling of the manometry device in her hiatal hernia. The patient notes that she has incessant reflux. Heartburn not severe. She cannot be involved in any kind of vigorous activity without recurrent problems with reflux. She denies nausea or repetitive vomiting. When I asked her about plans for intentional weight loss both she and her suggested that it was unlikely that she would be able to make significant progress in that regard. ROS General General: Yes fatigue; No weight change, appetite, colon cancer, breast cancer or weakness HEENT HEENT: No difficulty swallowing, eye injury, eye surgery, swollen glands or hoarseness Endo Endocrine: No thyroid disease, diabetes mellitus, thyroid cancer, Hair loss, heat intolerance or cold intolerance Skin Skin: No rash or changing moles Breast Breast: No left breast lump, right breast lump, nipple discharge, breast pain, abnormal mammogram, abnormal US or breast enlargement Musc Musculoskeletal: Yes arthritis; No back problems, rheumatoid arthritis, gout or joint pain Cardio Cardiovascular: No murmur, pacemaker, heart disease, atrial fibrillation, high blood pressure, heart attack, heart stent, palpitations, shortness of breat with exertion or chest pain Psych Psychiatric: No depression, anxiety or hearing voices Resp Respiratory: No shortness of breath, No sleep apnea, Yes cough, No COPD, Yes asthma, No emphysema and No wheezing Gastro Gastrointestinal: No abdominal pain, No nausea or vomiting, No diarrhea, No constipation, No blood in stool, Yes acid reflux, No hemorrhoids, No ulcers, No gallbladder problem and No black,tarry stools Blue Hematologic: No blood thinners, No blood disorders, No bleeding, No anemia and No blood clots Neuro Neurologic: No system reviewed and no additional complaints, except as documented, No as per HPI, No abnormal gait, No abnormal hearing, No abnormal movements, No abnormal speech, No behavioral changes, No burning sensations, No confusion, No convulsions, No disequilibrium, No dizziness, No localized weakness, No frequent falls, No headache(s), No lack of coordination, No loss of vision, No memory loss, No numbness, No other visual disturbances, No radicular pain, No restless legs, No sensory deficit, No syncope, No tingling, No tremor(s), No weakness and No other Exam Const General: cooperative, comfortable and no acute distress Nutritional Appearance: obese Orientation: alert and awake [facility] Head: normal to inspection Eyes General: appearance normal, both eyes and all related structures Resp Effort & Inspection: normal respiratory effort Auscultation: clear to auscultation bilaterally Cardio Rate: regular rate Rhythm: regular rhythm GI Palpation: soft and no hepatosplenomegaly Auscultation: normal bowel sounds Skin General: no rashes or lesions noted Neuro Cognition: normal cognition Extrem General: no calf tenderness Psych Affect: normal affect COVID (Procedure Consent) Procedure Criteria Procedure Criteria: Yes Elective The surgeon/proceduralist and patient have discussed in detail the risk of exposure to and/or potential harm posed by the COVID-19 virus with having a surgery/procedure at this time versus the risk of delaying the surgery/procedure. It is not possible to know either the risk of delaying the surgery or procedure or chance of getting an infection with perfect accuracy, but a joint decision was made between the patient and the surgeon/proceduralist to proceed at this time with the scheduled surgery/procedure as indicated on the consent form. Assessment and Plan Assessment and Plan (1) Gastroesophageal reflux disease: Status: Acute Qualifiers: Esophagitis bleeding: without hemorrhage Esophagitis presence: with esophagitis Qualified Code(s): K21.00 - Gastro-esophageal reflux disease with esophagitis, without bleeding Plan - Dr. Luis Cain MD: Today was a consultative appointment with the patient's present. I have discussed recommendations for a laparoscopic repair of her hiatal hernia with a laparoscopic toupet procedure. Extensive discussion was had regarding technique, benefit, risk of alternatives. I compared and contrasted surgical t reatment of Arleen fundoplication with toupet procedure. She has had an opportunity to ask and have questions answered. Because we are not able to obtain the manometry study I will obtain a contrast upper GI study. She has had an opportunity to ask and have questions answered. We will schedule procedure at her discretion. Appreciate the ongoing opportunity of assisting with her surgical care Copy: Dr Brian Garcia As an outpatient the patient did have a contrast upper GI study. This demonstrated a small sliding hiatal hernia. There was no other anatomy that appeared to be out of proportion. She presents with her today. We have again reviewed procedural technique. She has had an opportunity to ask and have questions answered. I anticipate proceeding with a laparoscopic repair of her hiatal hernia with an anticipated toupet procedure. Luis Cain M.D., F.A.C.S.
--- NOTE | 2021-09-14 06:37 | PCM.DC ---
Discharge Instructions Activity Discharge Activity: May Not Drive (for 3-5 days or while taking narcotic pain medicine.) May shower in (days): 1 Lifting Restrictions: 10 pounds Dressing / Incision Call your doctor if your incision/area has: Continuous Slow Oozing, Sudden Increased Bleeding, Increased Pain/ Swelling, Increased Redness and Foul Smelling Discharge Call your doctor if you observe: Fever of 101 or Higher Suture Line Care: Avoid Pulling/Pushing and Avoid Pinching/Bending Additional Dressing/Incision Instructions:: Change or remove dressing in 4 days. Leave steri-strips in place for 1 week. Follow Up Care Please Follow Up With: Luis Cain MD When: Call [phone] to make an appointment to be seen in about 10 days. Test Results: Please follow the dietary and activity instruction sheets already provided to you. You may initiate a clear liquid diet. If you tolerate that well then you may advance to nutritional drinks putting and yogurt and soups etc. which at body temperature will dissolve. Luis Cain M.D., F.A.C.S. Discharge Plan Admission Attending Provider: Luis Cain Primary Care Provider: Brian Garcia Discharge Orders/Prescriptions Prescriptions: No Action famotidine 10 mg tablet 10 mg PO QHS RF: 0 ergocalciferol (vitamin D2) 50 mcg (2,000 unit) capsule 50 mcg PO QWEEK RF: 0 albuterol 90 mcg/actuation Aerosol 90 mcg INHALATION PRN PRN (Reason: ASTHMA) RF: 0 loratadine [Claritin] 10 mg Tablet 10 mg PO PRN PRN (Reason: ALLERGIES) RF: 0
[2021-09-14] MEDS: Cefazolin 2 GM in 0.9% Normal Saline 100 ML IV (07:59)
[2021-09-14] MEDS: Lactated Ringers 1,000 ML 15 ML IV ×3 (08:00→13:06)
[2021-09-14] MEDS: Bupivacaine Mpf 0.5% 30 ML VIAL ×2 (08:30→10:29)
--- NOTE | 2021-09-14 10:29 | OP.EGD_ITS ---
Patient Name: Swetha Hinojosa Procedure Date: 09/14/2021 10:05 AM Date of : 1980 Age: 41 Procedure: Upper GI endoscopy Indications: Intraoperative evaluation of fundoplication formation during anatomic reconstruction foregut surgery Providers: Luis Cain MD Medicines: See the Anesthesia note for documentation of the administered medications Complications: No immediate complications. Procedure: Pre-Anesthesia Assessment: - Prior to the procedure, a History and Physical was performed, and patient medications and allergies were reviewed. The patient's tolerance of previous anesthesia was also reviewed. The risks and benefits of the procedure and the sedation options and risks were discussed with the patient. All questions were answered, and informed consent was obtained. Prior Anticoagulants: The patient has taken no previous anticoagulant or antiplatelet agents. ASA Grade Assessment: II - A patient with mild systemic disease. After reviewing the risks and benefits, the patient was deemed in satisfactory condition to undergo the procedure. After obtaining informed consent, the endoscope was passed under direct vision. Throughout the procedure, the patient's blood pressure, pulse, and oxygen saturations were monitored continuously. The Endoscope was introduced through the mouth, and advanced to the second part of duodenum. The upper GI endoscopy was accomplished without difficulty. The patient tolerated the procedure well. Scope In: 10:10:27 AM Scope Out: 10:13:47 AM Total Procedure Duration Time 0 hours 3 minutes 20 seconds Findings: The examined esophagus was normal. Evidence of a Toupet fundoplication was found in the gastric fundus. The wrap appeared intact. This was traversed. The examined duodenum was normal. Impression: - Normal esophagus. - A Toupet fundoplication was found. The wrap appears intact. - Normal examined duodenum. - No specimens collected. Recommendation: - Observe patient in same day observation unit for ongoing care. - Clear liquid diet. - Continue present medications. - Return to my office in 10 days. Procedure Code(s): --- Professional --- 18826, Esophagogastroduodenoscopy, flexible, transoral; diagnostic, including collection of specimen(s) by brushing or washing, when performed (separate procedure) Diagnosis Code(s): --- Professional --- Z98.890, Other specified postprocedural states CPT copyright 2017 [employer]. All rights reserved. The codes documented in this report are preliminary and upon manager banking review may be revised to meet current compliance requirements. Luis Cain MD 09/14/2021 10:28:43 AM This report has been signed electronically. Number of Addenda: 0 Note Initiated On: 09/14/2021 10:05 AM
--- NOTE | 2021-09-14 10:29 | OP.PCM_ITS ---
Problems Associated Problem List Diagnoses (1) Gastroesophageal reflux disease: Report of Operation Date of Procedure: 09/14/21 Pre-Operative Diagnosis: Intractable gastroesophageal reflux disease Post-Operative Diagnosis: Same Surgery/Procedure Performed:: Laparoscopic repair of hiatal hernia with laparoscopic toupet procedure and esophagogastroduodenoscopy Description of Surgical Findings:: Timeout and informed consent was obtained. 41-year-old female was taken to the operating placed on the table underwent general endotracheal intubation esthesia. She was on a beanbag. She was placed in low lithotomy position with the buttocks oral securement. Ancef 2 g were given intravenously. The abdomen sterilely prepped and draped. Ioban draping was used as well. Access was gained in the superior right. Midline abdomen with a 5 mm Visiport technique with clean access. The abdomen was insufflated with CO2 to a pressure of 10 mmHg pressure. 10 mm trocar was inserted to the left of the midline and 2 5 mm ports in the left subcostal area and then a 5 mm port and then subsequent Leilani retractor was placed in the epigastric area. The abdomen was superficial inspected no evidence of abnormality. The EG junction rapidly identifies in the pars flaccida identified this was incised with the harmonic scalpel left and right ara were dissected free. Was able to get circumferential dissection. I was able to identify the posterior and anterior vagus nerves. I dissected circumferentially around the esophagus for approximately 6 to 8 cm into the mediastinum very generously mobilized the residual esophagus. Then repaired the left and right ara using pledgeted sutures of 0 Ethibond. 3 sutures were placed and then a 46 Georgian bougie was placed felt that I had quite nice repair. Took the fundus wrap it posteriorly secured the posterior portion of the fundus to the crura with a 0 Ethibond. I then performed a toupet securing the right portion of the wrap to the esophagus to the epiphrenic ligament and then to the wrap portion. Using a 2-0 Ethibond in a running fashion I then approximated the wrap portion of the stomach to the esophagus over approximately 2-1/2 cm. In a like fashion after evaluating the left part of the fundus and assessing tension and wrapping I then used a 2-0 Ethibond to secure that portion of the stomach to the epiphrenic ligament into the esophagus and in a similar running fashion of 2-0 Ethibond superior that over the length of about 2-1/2 to 3 cm. I had what I thought was a very nice 270 degrees to 290 degree wrap. The anterior vagus carefully preserved. Then performed the upper endoscopy as per the probation dictation system. The wrap was noted to be intact there was absolutely no air leak. The EG junction appeared to be close and open nicely with advancement of the scope. Stomach was again deflated with an OG tube. The abdomen inspected the Leilani retractor removed blood loss had been very minimal. It is of note that the short gastrics had been taken during the procedure with harmonic scalpel and the fundus had been mobilized from the spleen. This had allowed for nice mobilization of the fundus and I had placed a Shakila around the EG junction further to mobilize things prior to the repair. A 10 mm trocar was removed and that was fascial defect was pared with a grainy needle and a simple suture of 0 Vicryl. The abdomen was allowed to deflate through an antiviral valve. Skin edges were approximated opted for Monocryl subdermal stitches. Steri-Strips Telfa OpSite dressings applied. Throughout the procedure 0.5% Marcaine was used as a local static. Skin sites were anesthetized and were possible I tried to anesthetize along the left subcostal margin to provide somewhat of a tap block. This was performed under the laparoscopic guidance. Specimens none. Drains none. Blood loss minimal. The patient was taken to recovery in satisfactory addition without apparent complication Luis Cain M.D., F.A.C.S. Surgeon: Luis Cain Type of Anesthesia: General and Local Anesthesiologist: Solomon Veloz
[2021-09-14] MEDS: oxyCODONE 5 MG Tablet PO (15:18)
--- NOTE | 2021-09-14 15:21 | SUR.PHASEII ---
pt not allergic to tylenol or oxycodone. has been prescribed before without problem
[2021-09-14] MEDS: Acetaminophen 325 MG Tablet PO (15:33)
--- NOTE | 2021-09-14 15:40 | SUR.PHASEII ---
pt tolerated water and fruit ice. pt is burping. pt reports she has her written instructions at home for diet and post op care.
== END 2021-09-14 15:59 | disposition home or self-care (01) ==
LOC: SDC 05:55 → AC 05:55
PROVIDERS: PCP Family Medicine; Referring Provider Surgery; Visit Provider Surgery
PROC: (CPT 43325; principal; 2021-09-14 07:40)
DX: K21.00 Gastro-esophageal reflux disease with esophagitis, without bleeding (principal); K44.9 Diaphragmatic hernia without obstruction or gangrene; K31.7 Polyp of stomach and duodenum; K22.81 Esophageal polyp; J45.909 Unspecified asthma, uncomplicated; M19.90 Unspecified osteoarthritis, unspecified site; Z68.35 Body mass index [BMI] 35.0-35.9, adult; Z87.891 Personal history of nicotine dependence; Z98.890 Other specified postprocedural states
CPT/HCPCS: 00790; 43235; 43280; 36415; 80048; 85027; 87426; C9803; J7120; J2405

== ENCOUNTER → 2021-11-03 11:06 | Outpatient (CLI) | payer MEDICAID, SELFPAY ==
[2021-11-03 12:58] LABS: AST(SGOT) 17 U/L (15-37); Alanine Aminotransfer ALT/SGPT 30 U/L (13-56); Albumin, Serum 3.5 g/dL (3.2-5.0); Alkaline Phosphatase 51 U/L (45-117); Anion Gap 5 (5-15); BUN 9 mg/dL (7-18); BUN/Creat Ratio 13.4 RATIO (10-20); Chloride 108 mmol/L (98-107); Creatinine, Serum 0.67 mg/dL (0.55-1.02); EST Glomerular Filtration Rate 102 mL/min (>60); Est Glom Filt Rate - Afr Amer 123 mL/min (>60); Globulin 3.6 g/dL (2.2-4.2); Glucose 86 mg/dL (74-106); Potassium 4.1 mmol/L (3.5-5.1); Protein, Total 7.1 g/dL (6.4-8.2); Sodium Level 139 mmol/L (136-145)
[2021-11-03 13:01] LABS: Vitamin D,25 Hydroxy 26.4 ng/mL
== END ==
PROVIDERS: PCP Family Medicine; Visit Provider Family Medicine
DX: E55.9 Vitamin D deficiency, unspecified (principal)
CPT/HCPCS: 36415; 80053; 82306

== ENCOUNTER 2022-01-25 15:45 | Outpatient (CLI) | payer MEDICAID, SELFPAY ==
--- NOTE | 2022-01-25 15:47 | RAD_ITS ---
STUDY: X-RAY - RIGHT SHOULDER REASON FOR EXAM: Female, 41 years old. Shoulder pain. TECHNIQUE: 4 view(s) of the shoulder. COMPARISON: None. FINDINGS: Normal glenohumeral articulation. Normal acromioclavicular joint. Normal acromion. Normal humeral head and visualized proximal humerus. The soft tissue structures are unremarkable. Normal visualized pulmonary apex. RAD/Shoulder min 2 Views IMPRESSION: Normal x-ray examination of the shoulder. Electronically Signed: Rigo Adamson MD at 3:40 EDT Reading Location ID and State: [id number] / , Service support ,
== END 2022-01-25 23:59 | disposition home or self-care (01) ==
LOC: MTRAD 15:46
PROVIDERS: PCP Family Medicine; Referring Provider Family Medicine; Visit Provider Family Medicine
DX: M25.511 Pain in right shoulder (principal)
CPT/HCPCS: 73030

== ENCOUNTER 2022-07-14 10:48 | Emergency (ER) | payer MEDICAID, SELFPAY ==
[2022-07-14 10:49] VITALS: BP 116/73; PULSE 70; RESP 16; TEMP 36.6; O2SAT 98; BMI 34.2
--- NOTE | 2022-07-14 11:12 | EDS_ITS ---
HPI HPI - GI History of Present Illness Chief Complaint: Abd Pain Informant: patient Abdominal Pain/Flank Pain Onset: Yesterday Context: Sudden Onset Timing: Continuous Quality: Dull Location: LUQ Worsened by: Nothing Relieved by: Nothing Nausea/Vomiting/Emesis GI Symptom: Negative for Nausea or Vomiting Diarrhea/Melena/Hematochezia GI Symptom: Negative for Diarrhea, Melena or Hematochezia Associated Symptoms Associated Symptoms: Negative for Dysuria, Frequency or Hematuria Narrative Narrative: Patient presents with abdominal pain that began last evening. Patient states her pain is mainly over the left upper quadrant area. Patient states she felt something pop in her left upper quadrant. Patient states her pain is been constant. Patient describes it as dull. Patient states nothing makes it better and nothing makes it worse. Patient states she was able to push on her left upper quadrant last night and it did start to feel better after that however it has gotten worse again today. Patient had a recent surgery for a laparoscopic repair of hiatal hernia. Patient states she called her surgeon who wanted her to have a CT scan with oral and IV contrast. Patient was sent to the emergency department for this. [facility] Medical History Anemia Arthritis Asthma Chronic cough Former smoker Gastric reflux Gastroesophageal reflux disease History of edema History of hiatal hernia Wears glasses Home Medications albuterol 90 mcg/actuation aerosol inhaler 90 mcg inhalation PRN PRN ASTHMA 07/27/21 [History Last Taken Unknown] loratadine 10 mg tablet (Claritin) 10 mg PO PRN PRN ALLERGIES 07/27/21 [History Last Taken Unknown] oxycodone-acetaminophen 5 mg-325 mg tablet 1 tab PO Q6H PRN PRN Pain 3 days #12 TABLETS 07/14/22 [Rx Last Taken Unknown] Allergy/AdvReac Type Severity Reaction Status Date / Time adhesive tape Allergy Mild PT UNSURE Verified 07/14/22 10:49 OF REACTION hydrocodone [From Vicodin] Allergy Mild Other Verified 07/14/22 10:49 Family History Brother Asthma CAD (coronary artery disease) CVA (cerebral vascular accident) Mother Thyroid disorder Daughter Seizures Surgical History History of esophagogastroduodenoscopy (EGD) S/P appendectomy S/P endometrial ablation S/P laparoscopic cholecystectomy S/P tonsillectomy and adenoidectomy S/P tubal ligation Social History Smoking Status: Former smoker alcohol intake: never ROS ROS ED Constitutional Constitutional ED: Denies chills or fever(s) Eyes Eyes: Denies blurry vision or change in vision ENT ENT ED: Denies rhinorrhea or sore throat Cardiovascular Cardiovascular: Denies chest pain or palpitations Respiratory/Chest Respiratory/Chest: Denies cough or dyspnea Gastrointestinal Gastrointestinal: Reports abdominal pain; Denies nausea or vomiting Genitourinary Genitourinary ED: Denies dysuria or hematuria Musculoskeletal Musculoskeletal: Reports back pain; Denies neck pain Integumentary Denies abscess or rash Neurologic Neurologic: Denies headache(s) or weakness Allergic/Immunologic Allergic/Immunologic ED: Denies mouth swelling or urticaria EXAM Physical Exam Const Vital Signs: 07/14/22 10:49 Temperature 97.8 F Temperature Source Temporal Pulse Rate 70 Respiratory Rate 16 Blood Pressure 116/73 Blood Pressure Mean 87 Pulse Ox 98 Oxygen Delivery Method Room Air Positive well nourished and well developed General Appearance ED: well developed and NAD HEENT Reports moist mucous membranes Neck supple and no JVD Resp normal respiratory effort and clear to auscultation bilaterally Cardio regular rate, regular rhythm and no murmurs GI normal to inspection, nondistended, normoactive bowel sounds Palpation: soft and tender LUQ; Negative for guarding or rebound tenderness present Extremity normal to inspection General Extremety ED: Negative for edema or tenderness General Extremity: Negative for edema Neuro oriented x3, CN's II-XII intact bilaterally and no sensory deficits noted Sensorium / Orientation: alert Motor Exam: strength 5/5 throughout Psych mental status grossly normal Skin no rashes or lesions noted MDM MDM MDM Narrative Medical decision making narrative: Patient was given IV fluids, morphine, and Zofran here. CBC was within normal limits. Comprehensive metabolic profile was within normal limits. Serum hCG was negative. Urinalysis does not show any evidence of urinary tract infection. CT scan of the abdomen pelvis with oral and IV contrast was obtained. There is a 2.2 x 1.6 cm cyst in the left ovary. There is no other acute abnormality noted. This was interpreted by the radiologist and reviewed by myself. Patient was advised of her findings. Patient was given a prescription for a short course of [place]. Patient was instructed to follow-up with her primary care physician and surgeon in 5 to 7 days. Patient understood and was agreeable with the plan. All questions were answered. Lab Data Attestation: I reviewed the patient's lab results. Labs: Laboratory Results - last 24 hr 07/14/22 07/14/22 07/14/22 11:06 11:06 11:06 WBC 8.2 RBC 4.72 Hgb 14.0 Hct 42.0 MCV 89.0 MCH 29.7 MCHC 33.3 RDW Std Deviation 41.3 RDW Coeff of Vini 12.6 Plt Count 254 MPV 9.4 Immature Gran % (Auto) 0.500 Neut % (Auto) 68.5 Lymph % (Auto) 21.6 Lagrange % (Auto) 5.6 Eos % (Auto) 3.1 Baso % (Auto) 0.7 Absolute Neuts (auto) 5.6 Absolute Lymphs (auto) 1.76 Nucleated RBC % 0 Sodium 140 Potassium 3.8 Chloride 105 Carbon Dioxide 30.0 Anion Gap 5 BUN 9 Creatinine 0.81 Estim Creat Clear Calc 90.34 Est GFR (MDRD) Af Amer 99 Est GFR (MDRD) Non-Af 82 BUN/Creatinine Ratio 11.1 Glucose 93 Calcium 9.5 Total Bilirubin 0.50 AST 13 L ALT 28 Alkaline Phosphatase 55 Total Protein 7.6 Albumin 3.9 Globulin 3.7 Albumin/Globulin Ratio 1.1 Serum , Qual NEGATIVE Urine Color Urine Clarity Urine pH Ur Specific Brimley Urine Protein Urine Glucose (UA) Urine Ketones Urine Occult Blood Urine Nitrite Urine Bilirubin Urine Urobilinogen Ur Leukocyte Esterase Urine RBC Urine WBC Ur Squamous Epith Cells Urine Bacteria Urine Mucus 07/14/22 11:06 WBC RBC Hgb Hct MCV MCH MCHC RDW Std Deviation RDW Coeff of Vini Plt Count MPV Immature Gran % (Auto) Neut % (Auto) Lymph % (Auto) Lagrange % (Auto) Eos % (Auto) Baso % (Auto) Absolute Neuts (auto) Absolute Lymphs (auto) Nucleated RBC % Sodium Potassium Chloride Carbon Dioxide Anion Gap BUN Creatinine Estim Creat Clear Calc Est GFR (MDRD) Af Amer Est GFR (MDRD) Non-Af BUN/Creatinine Ratio Glucose Calcium Total Bilirubin AST ALT Alkaline Phosphatase Total Protein Albumin Globulin Albumin/Globulin Ratio Serum , Qual Urine Color Straw Urine Clarity Sl. Cloudy Urine pH 7.0 Ur Specific Brimley 1.005 Urine Protein Negative Urine Glucose (UA) Normal Urine Ketones Negative Urine Occult Blood 10 H Urine Nitrite Negative Urine Bilirubin Negative Urine Urobilinogen Normal Ur Leukocyte Esterase Negative Urine RBC 0-5 SEEN Urine WBC 0 SEEN Ur Squamous Epith Cells 0-5 SEEN Urine Bacteria 0 SEEN Urine Mucus 0 SEEN Radiography Diagnostic Testing: Clinical Impression(s) from Imaging Studies Abdomen/Pelvis CT 07/14/22 11:17 IMPRESSION: 2.2 cm x 1.6 cm cyst in the left ovary. Electronically Signed: Rodrigo Arreola MD at 13:44 EDT , Discharge Plan Triage Chief Complaint: Abd Pain ED Provider: Harsh Sorenson Dx/Rx/DC Orders Clinical Impression: Abdominal pain, Ovarian cyst Instructions: ED Abdominal Pain Unkn Cause Fem Prescriptions: New oxycodone-acetaminophen [oxycodone-acetaminophen] 5-325 mg tablet 1 tab PO Q6H PRN PRN (Reason: Pain) 3 Days Qty: 12 0RF No Action albuterol 90 mcg/actuation Aerosol 90 mcg INHALATION PRN PRN (Reason: ASTHMA) loratadine [Claritin] 10 mg Tablet 10 mg PO PRN PRN (Reason: ALLERGIES) Primary Care Provider: Brian Garcia Referrals: Brian Garcia MD [Primary Care Provider] - 5-7 Days Luis Cain MD [Med Staff - Active Staff] - Keep Gabriela appointment Disposition Disposition: Home, Self Care
--- NOTE | 2022-07-14 11:17 | CT_ITS ---
STUDY: CT ABDOMEN AND PELVIS WITH CONTRAST REASON FOR EXAM: Female, 42 years old. Abdominal pain -- LUQ PAIN AND PRIOR APPY,GB,1 LEFT OVARY REMOVED AND TOUPEE PROCEDURE RADIATION DOSAGE (If Supplied By Facility): CTDIvol = ( 15.22 ) mGy, DLP = ( 1130.62 ) mGycm TECHNIQUE: Transaxial images were obtained from the dome of the diaphragm to the symphysis pubis without oral contrast. 100 ML ISOVUE 300 was administered. Sagittal and coronal images were reconstructed. Individualized dose optimization techniques were used for this CT. COMPARISON: None. FINDINGS: The visualized lung bases are unremarkable. The visualized portions of the heart are within normal limits. Normal liver. There are surgical clips in the gallbladder fossa consistent with a prior cholecystectomy. Normal spleen. Normal pancreas. Normal bilateral adrenal glands. Normal right kidney. Normal left kidney. Normal visualized stomach. Normal small intestine. Normal colon. The patient is status post appendectomy. Normal abdominal aorta. Normal inferior vena cava. There is borderline retroperitoneal lymphadenopathy with enlarged nodes no greater than 10mm in the short axis diameter. Normal urinary bladder. There is a 2.2 cm x 1.6 cm cyst in the left ovary. The patient is status post right nephrectomy. Normal abdominal wall. There are mild degenerative changes of the visualized lumbar spine. CT/Abdomen/Pelvis WITH Contrast IMPRESSION: 2.2 cm x 1.6 cm cyst in the left ovary. Electronically Signed: Rodrigo Arreola MD at 13:44 EDT ,
[2022-07-14] MEDS: Morphine 4 MG/ML Syringe IV (11:26)
[2022-07-14] MEDS: 0.9% Normal Saline 1,000 ML 1000 ML IV (11:26)
[2022-07-14] MEDS: Ondansetron 4 MG/2 ML Vial IV (11:26)
[2022-07-14 11:31] LABS: Bacteria 0 SEEN /hpf (None Seen); Mucous, Urine 0 SEEN /hpf (<or=2+); White Blood Cells 0 SEEN /hpf (0-5)
[2022-07-14 11:35] LABS: Color, Urine Straw (Yellow); Glucose, Dipstick Normal (Normal); Ketone-Dipstick Negative (Negative); Leukocyte Esterase-Dipstick Negative /ul (Negative); Nitrite-Dipstick Negative (Negative); Occult Blood-Urine 10 /ul (Negative); Protein-Dipstick Negative (Negative); Specific Gravity, Urine 1.005 (1.002-1.030); Urine Bilirubin Dipstick Negative (Negative); Urine Clarity Sl. Cloudy (Clear); Urine Urobilinogen Normal (Normal)
[2022-07-14 11:38] LABS: Absolute Lymphocyte Count 1.76 X10^3/uL (0.83-4.51); Absolute Neutrophil Count 5.6 X10^3/uL (2.0-7.7); Basophil# 0.06 X10^3/uL; Basophil% 0.7 % (0-1); Eosinophil# 0.25 X10^3/uL; Eosinophils% 3.1 % (0-5); Lymphocyte # 1.76 X10^3/ul (0.83-4.51); Lymphocyte % 21.6 % (19-41); Mean Corp Hgb Conc 33.3 g/dL (32-36); Mean Corpuscular Hgb 29.7 pg (27.0-32.0); Mean Platelet Vol. 9.4 fl (6.2-12.0); Monocyte# 0.46 X10^3/uL; Monocyte% 5.6 % (0-10); NRBC Flagged by Analyzer 0 % (0-5); Neutrophil # 5.58 X10^3/uL (2.7-7.7); Neutrophil % 68.5 % (47-70); Platelet Count 254 K/mm3 (150-450); RBC Distribution Width CV 12.6 % (11.6-14.6); RBC Distribution Width SD 41.3 fl (35.1-43.9); Red Blood Count 4.72 M/mm3 (4.2-5.4); White Blood Count 8.2 K/mm3 (4.4-11.0)
[2022-07-14 11:41] LABS: Red Blood Cells-Urine 0-5 SEEN /hpf (0-5); Squamous Epithelial Cells - UA 0-5 SEEN /hpf (5-10)
[2022-07-14 11:54] LABS: Internal QC Validated? YES +Cl - CLEAR BKGD; Pregnancy, Serum, hCG Quali. NEGATIVE Negative
[2022-07-14 11:57] LABS: ALB/GLOB Ratio 1.1 RATIO (0.9-2.4); AST(SGOT) 13 U/L (15-37); Alanine Aminotransfer ALT/SGPT 28 U/L (13-56); Albumin, Serum 3.9 g/dL (3.2-5.0); Alkaline Phosphatase 55 U/L (45-117); Anion Gap 5 (5-15); BUN 9 mg/dL (7-18); BUN/Creat Ratio 11.1 RATIO (10-20); Calcium,Total 9.5 mg/dL (8.5-10.1); Chloride 105 mmol/L (98-107); Creatinine, Serum 0.81 mg/dL (0.55-1.02); EST Glomerular Filtration Rate 82 mL/min (>60); Est Glom Filt Rate - Afr Amer 99 mL/min (>60); Estimated Creatinine Clearance 90.34 ml/min; Globulin 3.7 g/dL (2.2-4.2); Glucose 93 mg/dL (74-106); Potassium 3.8 mmol/L (3.5-5.1); Protein, Total 7.6 g/dL (6.4-8.2); Sodium Level 140 mmol/L (136-145)
== END 2022-07-14 14:53 | disposition home or self-care (01) ==
PROVIDERS: Emergency Provider Emergency Medicine; PCP Family Medicine; Visit Provider Emergency Medicine
DX: R10.12 Left upper quadrant pain (principal); N83.202 Unspecified ovarian cyst, left side; K44.9 Diaphragmatic hernia without obstruction or gangrene; K21.9 Gastro-esophageal reflux disease without esophagitis; Z87.891 Personal history of nicotine dependence
CPT/HCPCS: 74177; 80053; 81001; 84703; 85025; 96361; 96374; 96375; 99283; J7030; Q9967; A4216; J2405

== ENCOUNTER → 2022-08-11 | Outpatient (CLI) | payer MEDICAID, SELFPAY ==
[2022-08-11 15:59] LABS: Vitamin B12 340 pg/mL (211-911)
[2022-08-17 16:59] LABS: VITAMIN B6 5.8 ug/L (3.4-65.2); Vitamin B1, Thiamine 90.9 nmol/L (66.5-200.0)
== END | disposition home or self-care (01) ==
LOC: MFPLAB 11:52
PROVIDERS: PCP Family Medicine; Referring Provider Family Medicine; Visit Provider Family Medicine
DX: G62.9 Polyneuropathy, unspecified (principal)
CPT/HCPCS: 36415; 82607; 84207; 84425

== ENCOUNTER → 2022-09-14 | Outpatient (CLI) | payer MEDICAID, SELFPAY ==
--- NOTE | 2022-09-14 10:54 | RAD_ITS ---
HISTORY: NECK PAIN. TECHNIQUE: XR Spine Cervical 2 or 3 Views. COMPARISON: None. FINDINGS: VERTEBRAE: Vertebral body heights maintained. No acute fracture identified. ALIGNMENT: No significant anterior or posterior subluxation. Straightening of the cervical lordosis. INTERVERTEBRAL DISCS: Disc heights preserved. SOFT TISSUES: No significant prevertebral soft tissue swelling. RAD/Cerv Spine 2 or 3 Views IMPRESSION: No acute fracture or dislocation identified in the cervical spine. Electronically Signed: Roslyn Aiken MD at 12:47 EST ,
== END | disposition home or self-care (01) ==
LOC: MTRAD 10:53
PROVIDERS: PCP Family Medicine; Referring Provider Family Medicine; Visit Provider Family Medicine
DX: M54.2 Cervicalgia (principal)
CPT/HCPCS: 72040

== ENCOUNTER → 2022-11-22 | Outpatient (CLI) | payer MEDICAID, SELFPAY ==
--- NOTE | 2022-11-22 15:47 | NEURO ---
NCS and/or EMG Patient Report Ordering Doctor: Brian Garcia DATE OF SERVICE: 11/22/22 Swetha presents for electrodiagnostic testing of the upper limbs. She reports numbness in both hands for several years. Electrodiagnostic findings: Median motor nerve demonstrates normal distal latency, amplitude and conduction velocity bilaterally. Normal ulnar motor response bilaterally. Normal median and ulnar F waves. Sensory responses are within normal limits. Needle EMG testing shows no evidence of denervation in any muscles tested. Motor unit action potentials are of normal amplitude and duration. Electrodiagnostic impression: This is a normal electrodiagnostic study in the upper limbs. There is no electrodiagnostic evidence for peripheral neuropathy, including carpal tunnel or cubital tunnel syndrome. There is no electrodiagnostic evidence for cervical radiculopathy.
== END | disposition home or self-care (01) ==
LOC: PSN 14:20
PROVIDERS: PCP Family Medicine; Referring Provider Family Medicine; Visit Provider Family Medicine
DX: G62.9 Polyneuropathy, unspecified (principal)
CPT/HCPCS: 95886; 95913

== ENCOUNTER → 2023-11-22 | Outpatient (CLI) | payer MEDICAID, SELFPAY ==
--- NOTE | 2023-11-22 10:04 | RAD_ITS ---
STUDY: X-RAY - LEFT SHOULDER REASON FOR EXAM: Female, 43 years old. Pain. TECHNIQUE: 4 views of the left shoulder. COMPARISON: None. FINDINGS: Normal glenohumeral articulation. Normal acromioclavicular joint. Normal acromion. Normal humeral head and visualized proximal humerus. The soft tissue structures are unremarkable. There is no demonstrated fracture. Normal visualized pulmonary apex. RAD/Shoulder min 2 Views IMPRESSION: Normal x-ray examination of the left shoulder. Electronically Signed: Yordan Cavazos MD at 14:14 EST ,
--- OUTSIDE RECORDS SUMMARY | 2023-11-22 10:17 | XMS RPT_ITS | CCD ---
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 Name Role Phone REFERRING, PHY WO ID Unavailable Unavailable NORRIS HANSON Unavailable Unavailable MIRTA JACOBSON Attending Unavailable MIRTA JACOBSON Consulting Unavailable MIRTA JACOBSON Primary Care Unavailable MIRTA JACOBSON Admitting Unavailable PROVIDER, UNKNOWN Consulting Unavailable Allergies Allergy Classification Reported Allergen(s) Allergy Type Date of Onset Reaction(s) Facility (1 source) Acetaminophen / HYDROcodone Drug Allergy [facility] Repository (1 source) Egg Drug allergy (disorder) [facility] Repository Problems Active Problems Problem Classification Problem Date Documented Da te Episodic/Chronic Other connective tissue disease (3 sources) Unspecified rotator cuff tear or rupture of right shoulder, not specified as traumatic; Translations: [Unspecified rotator cuff tear or rupture of right shoulder, not specified as traumatic] Onset: 02-02-2022 Episodic Past or Other Problems Problem Classification Problem Date Documented Da te Episodic/Chronic Abdominal pain (2 sources) Unspecified abdominal pain; Translations: [UNSPECIFIED ABDOMINAL PAIN] Onset: 05-10-2017 Episodic Results Test Name Value Interpretation Reference Range Facil ity Encounters Encounter Date Encounter Type Care Provider Facility Start: 02-02-2022 End: 04-04-2022 ambulatory MIRTA JACOBSON [facility] Start: 05-10-2017 End: 05-11-2017 Ambulatory PHY WO ID REFERRING Facility:[facility] Payers Date Payer Category Payer Unknown [id number] Private Health Insurance [id number] Summary Purpose Family History No Family History Records FoundNo Family History Records Found Advance Directives No Advanced Directives Records FoundNo Advanced Directives Records Found Additional Source Comments INFORMATION SOURCE (unrecogn ized section and content) DATE CREATED AUTHOR AUTHOR'S ALYSSA OCHOA 04/04/2022 [facility] FOR RECORDS PERTAINING TO PATIENTS WHO ARE OR HAVE BEEN ENROLLED IN A CHEMICAL DEPENDENCY/SUBSTANCEABUSE PROGRAM, SOME INFORMATION MAY BE OMITTED. This clinical summary was aggregated from multiple sources. Caution should be exercised in using it in the provision of clinical care. This summary normalizes information from multiple sources, and as a consequence, information in this document may materially change the coding, format and clinical context of patient data. In addition, data may be omitted in some cases. CLINICAL DECISIONS SHOULD BE BASED ON THE PRIMARY CLINICAL RECORDS. [facility]. provides no warranty or guarantee of the accuracy or completeness of information in this document.
[2023-11-22 13:15] LABS: Follicle Stimulating Hormone 7.4 mIU/mL; Luteinizing Hormone 5.3 mIU/mL
== END | disposition home or self-care (01) ==
PROVIDERS: PCP Family Medicine; Referring Provider Family Medicine; Visit Provider Family Medicine
DX: R23.2 Flushing (principal); M25.812 Other specified joint disorders, left shoulder
CPT/HCPCS: 36415; 73030; 83001; 83002

== ENCOUNTER 2024-01-02 10:59 | Outpatient (RCR) | payer MEDICAID, SELFPAY | END 2024-01-03 23:59 | LOC: NS 10:59 | PROVIDERS: PCP Family Medicine; Referring Provider Family Medicine; Visit Provider Family Medicine | DX: Z71.3 Dietary counseling and surveillance (principal); E66.9 Obesity, unspecified; Z68.36 Body mass index [BMI] 36.0-36.9, adult | CPT/HCPCS: 97802 ==

== ENCOUNTER 2024-02-13 10:03 | Outpatient (RCR) | payer MEDICAID, SELFPAY | END 2024-03-04 23:59 | LOC: NS 10:03 | PROVIDERS: PCP Family Medicine; Referring Provider Family Medicine; Visit Provider Family Medicine | DX: Z71.3 Dietary counseling and surveillance (principal); E66.9 Obesity, unspecified; Z68.36 Body mass index [BMI] 36.0-36.9, adult | CPT/HCPCS: 97803 ==

== ENCOUNTER → 2024-10-22 | Outpatient (CLI) | payer MEDICAID, SELFPAY ==
[2024-10-22 12:12] LABS: Absolute Lymphocyte Count 1.35 X10^3/uL (0.83-4.51); Absolute Neutrophil Count 4.6 X10^3/uL (2.0-7.7); Basophil# 0.06 X10^3/uL; Basophil% 0.9 % (0-1); Eosinophil# 0.21 X10^3/uL; Eosinophils% 3.1 % (0-5); Hematocrit 39.9 % (37-47); Lymphocyte # 1.35 X10^3/ul (0.83-4.51); Lymphocyte % 20.2 % (19-41); Mean Corp Hgb Conc 32.6 g/dL (32-36); Mean Corpuscular Volume 89.1 fL (81-99); Mean Platelet Vol. 9.7 fl (6.2-12.0); Monocyte# 0.42 X10^3/uL; Monocyte% 6.3 % (0-10); NRBC Flagged by Analyzer 0 % (0-5); Neutrophil # 4.62 X10^3/uL (2.7-7.7); Neutrophil % 69.4 % (47-70); Platelet Count 232 K/mm3 (150-450); RBC Distribution Width SD 42.5 fl (35.1-43.9); Red Blood Count 4.48 M/mm3 (4.2-5.4); White Blood Count 6.7 K/mm3 (4.4-11.0)
[2024-10-22 12:40] LABS: AST(SGOT) 8 U/L (15-37); Alanine Aminotransfer ALT/SGPT 25 U/L (13-56); Albumin, Serum 3.5 g/dL (3.2-5.0); Alkaline Phosphatase 49 U/L (45-117); Anion Gap 5 (5-15); BUN 11 mg/dL (7-18); BUN/Creat Ratio 14.2 RATIO (10-20); Calcium,Total 9.2 mg/dL (8.5-10.1); Chloride 107 mmol/L (98-107); Cholesterol 207 mg/dL (200); Creatinine, Serum 0.77 mg/dL (0.55-1.02); EST Glomerular Filtration Rate 86 mL/min (>60); Est Glom Filt Rate - Afr Amer 104 mL/min (>60); Globulin 3.4 g/dL (2.2-4.2); Glucose 106 mg/dL (74-106); High Density Lipoprotein 66 mg/dL; Potassium 4.4 mmol/L (3.5-5.1); Protein, Total 6.9 g/dL (6.4-8.2); Sodium Level 137 mmol/L (136-145); Triglycerides 132 mg/dL; Very Low Density Lipoprotein 26 mg/dL (5-40)
[2024-10-23 00:32] LABS: Vitamin D,25 Hydroxy 10.4 ng/mL
== END | disposition home or self-care (01) ==
LOC: MFPLAB 10:44
PROVIDERS: PCP Family Medicine; Referring Provider Family Medicine; Visit Provider Family Medicine
DX: E55.9 Vitamin D deficiency, unspecified (principal); E66.9 Obesity, unspecified
CPT/HCPCS: 36415; 80053; 80061; 82306; 83036; 85025

== ENCOUNTER → 2024-12-22 | Outpatient (CLI) | payer MEDICAID, SELFPAY ==
--- NOTE | 2024-12-22 08:27 | MRI_ITS ---
PROCEDURE: MRI left shoulder without IV contrast REASON FOR EXAM: Pain TECHNIQUE: Multisequence multiplanar MR images of the left shoulder were obtained without the administration of intravenous contrast. COMPARISON: None. FINDINGS 50% partial-thickness intrasubstance tear of the mid supraspinatus tendon at its critical zone measuring up to 6 mm in width which may also extend to the bursal surface. Mild superimposed supraspinatus tendinopathy. Infraspinatus and subscapularis tendons are intact. Mild teres minor muscle atrophy. Intact long head biceps tendon. Glenohumeral alignment is maintained. No joint effusion. No displaced labral tear or paralabral cysts. No focal chondral defects. Acromioclavicular joint alignment is maintained. No significant degenerative changes. Negative for fracture or marrow replacement. Small amount of fluid in the subacromial/subdeltoid bursa. MRI/Upper Ext Joint Only(Routine) IMPRESSION: 1. Partial thickness partial width partial-thickness tear of the supraspinatus tendon as above. 2. Small amount of fluid in the subacromial/subdeltoid bursa. 3. Mild teres minor muscle atrophy. Reading Location: [facility]
== END | disposition home or self-care (01) ==
LOC: MRI 11:50
PROVIDERS: PCP Family Medicine; Referring Provider Orthopaedic Surgery Sports Medicine; Visit Provider Orthopaedic Surgery Sports Medicine
DX: M25.512 Pain in left shoulder (principal)
CPT/HCPCS: 73221

== ENCOUNTER 2025-02-18 09:40 | Day surgery (SDC) | payer MEDICAID, SELFPAY ==
[2025-02-18] VITALS (9 sets, daily range): BP systolic 105–118; BP diastolic 60–75; PULSE 57–75; RESP 16; TEMP 36–36.8; O2SAT 95–99; BMI 33.8
--- NOTE | 2025-02-18 09:43 | PRE.ANES_ITS ---
ASA Classification* ASA Classification ASA Classification: 2 Assessment & Plan Anesthesia* Anesthesia Assessment Anesthesia Assessment: Discussed sedation and/or anesthesia options, risks, benefits, and alternatives with patient/parents/legal guardian/POA. Questions invited. The patient/parents/legal guardian/POA seems to understand and agrees to proceed with anesthesia plan. Reviewed the physical assessment, medical history, allergy history and patient home medications list prior to surgery/procedure/anesthetic and documented any changes. Performed airway and anesthesia risk assessments. Anesthesia Type Anesthesia Type: General and Block Anesthesia Focused Assessment* Airway Assessment Mouth opens: >3 cm Mallampati Score: II Focused Labs Anesthesia Preop lab: CBC WBC 6.7 K/mm3 (4.4-11.0) 10/22/24 10:45 10/22/24 RBC 4.48 M/mm3 (4.2-5.4) 10/22/24 10:45 10/22/24 Hgb 13.0 g/dL (12.0-15.0) 10/22/24 10:45 10/22/24 Hct 39.9 % (37-47) 10/22/24 10:45 10/22/24 Plt Count 232 K/mm3 (150-450) 10/22/24 10:45 10/22/24 CHEMISTRY Potassium 4.4 mmol/L (3.5-5.1) 10/22/24 10:45 10/22/24 Sodium 137 mmol/L (136-145) 10/22/24 10:45 10/22/24 BUN 11 mg/dL (7-18) 10/22/24 10:45 10/22/24 Creatinine 0.77 mg/dL (0.55-1.02) 10/22/24 10:45 10/22/24 Glucose 106 mg/dL (74-106) 10/22/24 10:45 10/22/24 TSH 1.61 uIU/mL (0.358-3.74) 07/05/21 10:27 COAG Pre-Assessment Diagnosis/Proposed Procedure Planned Operative Procedure(s): LEFT SHOULDER ARTHROSCOPY SUBCROMIAL DECOMPRESSION RTC REPAIR Anesthesia History 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 When Was Last Pacemaker Check QUESTION #4 FULL TEXT: You/Your Family Experience fever (hyperthermia) with Anesthesia Last Oral Intake Last Oral intake: Last Oral Intake NPO since Meds taken in AM with sips of water? 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 Female Yes 02/04/25 10:16 HX of Motion Sickness Yes 02/04/25 10:16 HX of N/V After Surgery Yes 02/04/25 10:16 Non-Smoker Yes 02/04/25 10:16 Duration of Surgery greater Yes 02/04/25 10:16 than 60 minutes Number of Risk Factors 5 02/04/25 10:16 PONV Score Severe Risk 02/04/25 10:16 Height & Weight Height & Weight: Anesthesia: Height & Weight Height 5 ft 8 in 02/17/25 09:05 Weight: 107.048 kg 02/17/25 09:05 Respiratory Assessment Respiratory Assessment - jewelry casting model maker apprentice: Respiratory Tract Infection Hx - 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 Has anyone observed you stop No 02/04/25 10:16 breathing during sleep? STOP Results Negative 02/04/25 10:16 QUESTION #5 FULL TEXT : Do you snore loudly (louder than talking or can be heard through closed doors)? 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 confused, unrespo /Reproduction History /Reproductive History - jewelry casting model maker apprentice: /Reproductive Hx- jewelry casting model maker apprentice Hx Now No 02/04/25 10:16 Gestational Age (in weeks): EDC: Hx Hx Para Hx Section SAB No 02/04/25 10:16 Active Medications Active Medications: Current Medications Generic Name Dose Route Start Last Admin Trade Name Freq PRN Reason Stop Dose Admin Cefazolin Sodium 2 gm/ N/A 20 mls @ 400 mls/hr 02/18/25 11:50 IV 02/18/25 11:52 X1 [facility] Medical History Injury of head and neck Left rotator cuff tear Left shoulder pain History of hiatal hernia Wears glasses Arthritis Anemia Gastric reflux Former smoker Asthma Home Medications ?Medication ?Instructions ?Recorded ?Last Taken ?Type albuterol 90 mcg/actuation aerosol 90 mcg inhalation P RN PRN ASTHMA 07/27/21 Unknown History inhaler loratadine 10 mg tablet (Claritin) 10 mg PO PRN PRN AL LERGIES 07/27/21 Unknown History clonidine HCl 0.2 mg tablet 0.2 mg PO QHS HOT FLASHES 11/28/24 Unknown History meloxicam 7.5 mg tablet 7.5 mg PO BID PRN pain 2 dilma ks #30 12/04/24 Unknown Rx tabs cholecalciferol (vitamin D3) 1,250 1,250 mcg PO FR 12/30 Unknown History mcg (50,000 unit) capsule Allergy/AdvReac Type Severity Reaction Status Date / Time adhesive tape Allergy Mild PT UNSURE Verified 02/04/25 10:13 OF REACTION hydrocodone (From Vicodin) Allergy Mild Other Verified 02/04/25 10:13 egg (eggs) AdvReac Intermediate Diarrhea Verified 02/04/25 10:26 Family History Brother Asthma CAD (coronary artery disease) CVA (cerebral vascular accident) Mother Thyroid disorder Daughter Seizures Surgical History Hx of removal of ovary History of repair of hiatal hernia History of esophagogastroduodenoscopy (EGD) S/P endometrial ablation S/P tonsillectomy and adenoidectomy S/P tubal ligation S/P laparoscopic cholecystectomy S/P appendectomy Social History Smoking Status: Former smoker alcohol intake: never Review of Systems (Anesthesia) ROS Narrative System reviewed and no additional complaints, except as documented.
[2025-02-18] MEDS: 0.9% Normal Saline (1000mL) 1,000 ML 15 ML IV (10:32)
--- NOTE | 2025-02-18 12:32 | HP.PCM_ITS ---
HPI - General HPI Narrative BERNARDINO GERARD, is a 44 F who presents for left shoulder arthroscopy, subacromial decompression, rotator cuff repair. No changes in history and physical exam. Risks alternatives benefits as well as postoperative instructions and narcotic counseling given. Left shoulder marked patient understands okay to proceed. MR#: [id number] Acct: [id number] Name: BERNARDINO GERARD Rep #: [id number] : 1980 Provider: Dr. Percy Xavier MD Age/Sex: 44/F [place] [facility] [place] Status: Signed Intake Vital Signs 11/28/2509:18 12/24/2509:57 Height 5 ft 8 in 5 ft 8 in Weight: 239 lb BMI 36.3 Intake Visit Reasons: LEFT SHOULDER Accompanied by: Self Allergies adhesive tape Allergy (Mild, Verified 12/29/24 11:17) PT UNSURE OF REACTIONhydrocodone (From Vicodin) Allergy (Mild, Verified 12/29/24 11:17) Other Medications ?Medication ?Instructions ?Recorded ?Confirmed ?Type albuterol 90 mcg/actuation aerosol 90 mcg inhalation PRN PRN ASTHMA 1 12/29/24 History inhaler loratadine 10 mg tablet (Claritin) 10 mg PO PRN PRN ALLERGIES 07/27/2112/07 History clonidine HCl 0.2 mg tablet mg PO QDAY 11/28/24 12/29/24 History meloxicam 7.5 mg tablet 7.5 mg PO BID PRN pain 2 weeks #30 12/0412/29/24 Rx tabs methylprednisolone 4 mg tablets in See Rx Instructions PO PER PKG DIR 12/24/24 12/29/24 Rx a dose pack #21 tabs PFSH Medical History Left rotator cuff tear Left shoulder pain Acute sinusitis, unspecified History of hiatal hernia History of edema Wears glasses Arthritis Anemia Gastric reflux Former smoker Asthma Chronic cough Gastroesophageal reflux disease Surgical History History of esophagogastroduodenoscopy (EGD) S/P endometrial ablation S/P tonsillectomy and adenoidectomy S/P tubal ligation S/P laparoscopic cholecystectomy S/P appendectomy Family History Brother Asthma CAD (coronary artery disease) CVA (cerebral vascular accident)Mother Thyroid disorderDaughter Seizures Social History Smoking Status: Former smoker alcohol intake: never HPI LEFT SHOULDER Details: This documentation accurately reflects the service provided and the decisions made by me, Dr. Percy Xavier MD 12/29/24 0818. Part of today?s visit was documented by [ ], acting as scribe. BERNARDINO GERARD is a 44 year old F here today for FU L shoulder MRI. Supplemental Info [facility] Imaging Services [address], [place] [id number] Upper Ext Joint Only(Routine) MR#: [id number] Acct: [id number] Name: BERNARDINO GERARD Rep #: [id number] : 1980 F 44 From: Luis Rivera DO PCP: Dr. Brian Garcia MD Status: REG CLI Study: Upper Ext Joint Only(Routine) Date of Exam: 12/22/24 Exam# [id number] Ordering Dr: Percy Xavier MD PROCEDURE: MRI left shoulder without IV contrast REASON FOR EXAM: Pain TECHNIQUE: Multisequence multiplanar MR images of the left shoulder were obtained without the administration of intravenous contrast. COMPARISON: None. FINDINGS 50% partial-thickness intrasubstance tear of the mid supraspinatus tendon at its critical zone measuring up to 6 mm in width which may also extend to the bursal surface. Mild superimposed supraspinatus tendinopathy. Infraspinatus and subscapularis tendons are intact. Mild teres minor muscle atrophy. Intact long head biceps tendon. Glenohumeral alignment is maintained. No joint effusion. No displaced labral tear or paralabral cysts. No focal chondral defects. Acromioclavicular joint alignment is maintained. No significant degenerative changes. Negative for fracture or marrow replacement. Small amount of fluid in the subacromial/subdeltoid bursa. MRI/Upper Ext Joint Only(Routine) IMPRESSION: 1. Partial thickness partial width partial-thickness tear of the supraspinatus tendon as above. 2. Small amount of fluid in the subacromial/subdeltoid bursa. 3. Mild teres minor muscle atrophy. Reading Location: [facility] independently reviewed the imaging. Concur with radiologist report. Coding Level of Care Code Off vis,est,level 3 Diagnoses Left shoulder pain M25.512 Left rotator cuff tear M75.102 Assessment and Plan Assessment and Plan (1) Left shoulder pain: Status: Acute Plan: 44 yr F with L shoulder pain, small RC tear. Patient explained the pros and cons risks and benefits of nonoperative management versus surgery. The patient would like to go ahead with surgery in the form of left shoulder arthroscopy, subacromial decompression, rotator cuff repair. Explained the postoperative recovery 2 weeks in a sling 6 weeks of range of motion exercises followed by 6 weeks of strengthening return to normal activities typically by 3 to 6 months after surgery. The patient understands and wishes to go ahead with the operation and signed the consent form for that and no further questions. Pros and cons risks and benefits were discussed with the patient including but not limited to infection, pain, stiffness, bleeding, damage to surrounding structures, neurovascular injury, recurrence or retear, failure or wear of hardware or fixation, instability, fracture, deep vein thrombosis and pulmonary embolism, anesthetic risks, , patient dissatisfaction, need for further surgery and other risks. Patient understood and wished to proceed with surgery, and signed the informed consent documentation. (2) Left rotator cuff tear: Status: Acute [facility] Medical History Injury of head and neck Left rotator cuff tear Left shoulder pain History of hiatal hernia Wears glasses Arthritis Anemia Gastric reflux Former smoker Asthma Home Medications ?Medication ?Instructions ?Recorded ?Last Taken ?Type albuterol 90 mcg/actuation aerosol 90 mcg inhalation P RN PRN ASTHMA 07/27/21 Unknown History inhaler loratadine 10 mg tablet (Claritin) 10 mg PO PRN PRN AL LERGIES 07/27/21 Unknown History clonidine HCl 0.2 mg tablet 0.2 mg PO QHS HOT FLASHES 11/28/24 02/16/25 History meloxicam 7.5 mg tablet 7.5 mg PO BID PRN pain 2 wee ks #30 12/04/24 Unknown Rx tabs cholecalciferol (vitamin D3) 1,250 1,250 mcg PO FR 12/3002/13/25 History mcg (50,000 unit) capsule Allergy/AdvReac Type Severity Reaction Status Date / Time adhesive tape Allergy Mild PT UNSURE Verified 02/18/25 10:13 OF REACTION hydrocodone (From Vicodin) Allergy Mild Other Verified 02/18/25 10:13 egg (eggs) AdvReac Intermediate Diarrhea Verified 02/18/25 10:13 Family History Brother Asthma CAD (coronary artery disease) CVA (cerebral vascular accident) Mother Thyroid disorder Daughter Seizures Surgical History Hx of removal of ovary History of repair of hiatal hernia History of esophagogastroduodenoscopy (EGD) S/P endometrial ablation S/P tonsillectomy and adenoidectomy S/P tubal ligation S/P laparoscopic cholecystectomy S/P appendectomy Social History Smoking Status: Former smoker alcohol intake: never Vital Signs Vital Signs Vital Signs: 02/18/25 10:17 02/18/25 10:17 Temperature 96.8 F L Temperature Source Temporal Pulse Rate 57 L Respiratory Rate 16 Respiratory Pattern Normal Blood Pressure 111/75 Blood Pressure Mean 87 Blood Pressure Source Monitor Blood Pressure Position Semi-Fowlers Blood Pressure Location Left Arm Pulse Ox 99 Oxygen Delivery Method Room Air Weight Weight: 229 lb 4.492 oz Body Mass Index (BMI) 33.8
[2025-02-18] MEDS: Epinephrine (1 mg/ml) 1 MG/ML VIAL (12:57)
[2025-02-18] MEDS: Cefazolin 2 GM in Syringe IV (13:14)
--- NOTE | 2025-02-18 13:56 | OP.PCM_ITS ---
Problems Associated Problem List Diagnoses (1) Left shoulder pain: (2) Left rotator cuff tear: Operative Report (Standard) Operative Information Date of Procedure: 02/18/25 Pre-Operative Diagnosis: Left shoulder impingement syndrome and rotator cuff tear Post-Operative Diagnosis: Same Surgery/Procedure Performed: Left shoulder arthroscopy subacromial decompression rotator cuff repair patient intake representative: Yes Email Marketing Specialist: farhad Tasks completed by wardrobe assistant: Retracting Type of Anesthesia: Block,Regional and General RN Documented Start/Stop Times: Operation Date: 02/18/25 11:50 Case Time Into Pre-Op 02/18/25 10:16 Anesthesia Start 02/18/25 12:57 Into Room 02/18/25 12:57 Procedure Start 02/18/25 13:19 Procedure Start Time: 13:19 Procedure Stop Time: 14:00 Select all DRAINS/GRAFTS/IMPLANTS that apply: Implanted device Implanted device details: Arthrex knotless fiber tack RC rotator cuff repair anchors 2.6mm x 2 Estimated Blood Loss: 25 Specimen collected: No Description of surgery: Patient brought to the operating room theater. Placed supine on the table. General anesthesia induced. Patient transferred left side up lateral decubitus beanbag positioner axillary roll used. All bony prominences padded. SCDs and legs. 2 g IV Ancef administered prior to the start of the case. Upper extremity prepped and draped in the usual sterile fashion with chlorhexidine- based prep solution allowing over 3 minutes drying time prior to draping. 10 pounds of inline traction with the arm in 40 degrees of abduction was used. Preoperative timeout performed confirm the site patient and surgery. Began by inserting the arthroscope into the intra-articular portion of the shoulder through a standard posterior arthroscopy portal. Did a full diagnostic arthroscopy. Normal cartilage on the glenoid and humeral head. No loose bodies. The labrum appeared slightly degenerative at the biceps attachment, so did gentle debridement for type 1 slap. I made anterior portal through the rotator interval. No under surface cuff tears, subscapularis normal. Next I turned my attention to and placed the scope in the subacromial space. I did a bursectomy there is a moderate amount of inflammatory bursitis. I did a subacromial decompression for 3 mm. I examined the superior aspect of the rotator cuff. There is an area of partial-thickness intra tendon tearing. I elected to do a trans tendon repair technique. I placed 2 anchors both Arthrex knotless self punching 2.6 mm fiber tack anchors. One just anterior to the tear and 1 just posterior to the tear. Rotator cuff tendon appeared healthy overall. I then used the repair suture transferred this to the shuttling suture from the contralateral anchor and converted the anchor. I then did the opposite for the posterior anchor to create a [id number] to suture configuration. This was appropriately tensioned and suture was cut short. Arthroscopy pictures taken and saved onto the case. Skin closed with 3-0 Monocryl. Skin cleaned with wet dry dressing followed application of Steri-Strips Adaptic 4 x 4 gauze ABD dressing cloth tape and an abduction pillow sling for the upper extremity. Patient woken up from general anesthetic transferred off the operating table and taken to postanesthetic care unit in stable condition. All sponge needle instrument counts were correct no complications plan for the patient discharge home according to day surgery criteria follow-up in the office in 2 weeks time a nd wearing the sling with breaks. CPT 52193, 66423 Surgical Findings: as above Complications Complications: No Admit VTE Documentation VTE Present on Admission: No VTE Mechan Device Prophylaxis: SCD's VTE Pharm Prophylaxis ordered?: No Reason prophylaxis not ordered: Treatment Not Indicated
--- NOTE | 2025-02-18 14:04 | EX.PCM.DISCH ---
Discharge Instructions Diet Discharge Diet: No restrictions Activity Ice area for (Minutes): 10 Lifting Restrictions: no lifting, pendulums 4x/day Additional Activity Instructions:: ok for hand wrist elbow rom, ok to remove sling at rest Dressing / Incision Call your doctor if your incision/area has: Continuous Slow Oozing, Sudden Increased Bleeding, Increased Pain/ Swelling, Increased Redness, Foul Smelling Discharge and Swelling at the incision site Call your doctor if you observe: Fever of 101 or Higher, Coldness, Increased Pain and Numbness or Tingling Change Dressing in: leave in place till F/U Cleanse incision/area with: Do not get Incision Wet Follow Up Care Please Follow Up With: Percy Xavier MD When: 2 days or within 2 weeks Test Results: Test results from this visit will be discussed in further detail at your follow-up appointment, if applicable. Discharge Plan Admission Attending Provider: Percy Xavier Primary Care Provider: Brian Garcia Instructions Patient Instructions: After Shoulder Arthroscopy Print Language: Estonian Discharge Orders/Prescriptions Prescriptions: New oxycodone-acetaminophen [Endocet] 2.5-325 mg tablet 1 tab PO Q4H MDD 6 PRN (Reason: pain) 3 Days Qty: 20 0RF No Action clonidine HCl 0.2 mg tablet 0.2 mg PO QHS Patient Comments: [NO ORIGINAL SIG] albuterol 90 mcg/actuation Aerosol 90 mcg INHALATION PRN PRN (Reason: ASTHMA) loratadine [Claritin] 10 mg Tablet 10 mg PO PRN PRN (Reason: ALLERGIES) cholecalciferol (vitamin D3) 1,250 mcg (50,000 unit) capsule 1,250 mcg PO FR meloxicam 7.5 mg tablet 7.5 mg PO BID MDD 2 PRN (Reason: pain) 14 Days Qty: 30 1RF Referrals / Follow Up: Brian Garcia MD [Primary Care Provider] - Disposition Disposition (needs filled in before D/C Order can be placed): Home, Self Care
--- NOTE | 2025-02-18 14:53 | PCM.POST.ANE ---
Anesthesia: Postop Eval I Current Vital Signs Temperature: 97 F Pulse Rate: 61 Blood Pressure: 105/73 Respiratory Rate: 16 Pulse Ox: 95 Oxygen Delivery Method: Room Air Assessment Airway patent: Yes Spontaneous unlabored respirations: Yes Mental status: Awake nausea: No Vomiting: No Anesthesia Complication: No Fluid Hydration Crystalloid volume administer (ml): 600 Total IV fluid infused: 600 Progress Note Anesthesia document: Postop Eval 1 completed: Yes
--- NOTE | 2025-02-18 14:55 | PCM.POSTANE2 ---
Anesthesia Postop Eval I Sum Postop Eval Completion status Anesthesia document: Postop Eval 1 completed: Yes Anesthesia Postop Eval I Summary Anesthesia Postop Eval I Summary: Anesthesia Postop Eval I: Assessment Summary Airway patent Yes 02/18/25 14:54 Spontaneous unlabored Yes 02/18/25 14:54 respirations Mental status Awake 02/18/25 14:54 nausea No 02/18/25 14:54 Vomiting No 02/18/25 14:54 Anesthesia Postop Eval I: Fluid Summary Crystalloid volume administer 600 02/18/25 14:54 (ml) Colloids volume administered ( ml) Blood Product volume administered (ml) Total IV fluid infused 600 02/18/25 14:54 Anesthesia Postop Eval I: Summary Notes Anesthesia Complication No 02/18/25 14:54 Anesthesia Complication Comment: Post-operative progress note Anesthesia: Postop Eval II Evaluation Mental status: Awake Pain Level: 2 nausea: No Vomiting: No
== END 2025-02-18 15:58 | disposition home or self-care (01) ==
LOC: SDC 09:40 → AC 09:41
PROVIDERS: PCP Family Medicine; Referring Provider Orthopaedic Surgery Sports Medicine; Visit Provider Orthopaedic Surgery Sports Medicine
PROC: (CPT 29805; principal; 2025-02-18 11:30)
DX: M75.102 Unspecified rotator cuff tear or rupture of left shoulder, not specified as traumatic (principal); M75.42 Impingement syndrome of left shoulder; K21.9 Gastro-esophageal reflux disease without esophagitis; J45.909 Unspecified asthma, uncomplicated; Z87.891 Personal history of nicotine dependence
CPT/HCPCS: 29827; 29826; 64415; 01630; C1713; J2405

== ENCOUNTER → 2025-04-15 | Outpatient (CLI) | payer MEDICAID, SELFPAY ==
[2025-04-17 11:08] LABS: Chlamydia By Nucleic Acid AMP Negative (Negative); Gonococcus By Nucleic Acid AMP Negative (Negative); Trich. Vag By Nucleic Acid AMP Negative (Negative)
== END | disposition home or self-care (01) ==
LOC: LABSPEC 11:03
PROVIDERS: PCP Family Medicine; Referring Provider Family Medicine; Visit Provider Family Medicine
DX: Z12.4 Encounter for screening for malignant neoplasm of cervix (principal)
CPT/HCPCS: 87491; 87591; 88175; G0145

== ENCOUNTER → 2025-11-04 | Outpatient (CLI) | payer MEDICAID, SELFPAY ==
--- OUTSIDE RECORDS SUMMARY | 2025-11-04 15:53 | XMS RPT_ITS | CCD ---
Author Organization [facility] Care Team Providers Care Supervisor Billposting Name Role Phone REFERRING, PHY WO ID Unavailable Unavailable VALENTINNORRIS Unavailable Unavailable Dr. Mirta Jacobson Primary Care Provider Dr. Mirta Jacobson Referring Provider EDMOND Christensen Attending Provider [phone] Dr. Mirta Jacobson Primary Care Provider [phone] Dr. Mirta Jacobson Referring Provider [phone] Toby PINEDA, [place] Deandre Lopez Attending Provider Dr. Mirta Jacobson MD Primary Care Provider [phone] Dr. Mirta Jacobson MD Attending Provider [phone] Dr. Mirta Jacobson MD Referring Provider [phone] Ananda Xavier MD Attending Provider Ananda Xavier MD Referring Provider Marcus Polanco Attending Provider Ananda Xavier MD Other Provider Dr. Mirta Jacosbon MD Primary Care Provider Ananda Xavier MD Attending Provider Dr. Mirta Jacobson MD Referring Provider [phone] Dr. Mirta Jacobson MD Primary Care Provider Ananda Xavier MD Attending Provider Ananda Xavier MD Referring Provider Dr. Mirta Jacobson MD Attending Provider [phone] Schinner MD, Dr. Mirta E Primary Care Provider Ananda Xavier MD Attending Provider [phone] Dr. Mirta Jacobson MD Referring Provider Dr. Mirta Jacobson MD Primary Care Provider Radha REYES, Dr. Mirta Fallon Referring Provider Ananda Xavier MD Attending Provider Schhaydenner, Mirta E Referring Unavailable Schinner, Mirta E Primary Care Unavailable Ananda Xavier Attending Unavailable Schinner, Mirta E Referring Unavailable Schinner, Mirta E Primary Care Unavailable Ananda Xavier Attending Unavailable Schinyinka, Mirta E Primary Care Unavailable Ananda Xavier Attending Unavailable Ananda Xavier Referring Unavailable Schinner, Mirta E Attending Unavailable Schinner, Mirta E Referring Unavailable Schinner, Mirta E Primary Care Unavailable Schinner, Mirta E Referring Unavailable Schinner, Mirta E Attending Unavailable Schinner, Mirta E Primary Care Unavailable Schinner, Mirta E Primary Care Unavailable Ananda Xavier Attending Unavailable Ananda Xavier Referring Unavailable Schinner, Mirta E Referring Unavailable Schinner, Mirta E Primary Care Unavailable Marcus Polanco Attending Unavailable Schinyinka, Mirta E Primary Care Unavailable Ananda Xavier Referring Unavailable Ananda Xavier Consulting Unavailable Ananda Xavier Attending Unavailable Schinyinka, Mirta E Primary Care Unavailable Ananda Xavier Attending Unavailable Schinner, Mirta E Referring Unavailable Schinner, Mirta E Primary Care Unavailable Ananda Xavier Attending Unavailable Schinyinka, Mirta E Referring Unavailable Schinner, Mirta E Primary Care Unavailable Ananda Xavier Attending Unavailable Schinyinka, Mirta E Referring Unavailable Schinner, Mirta E Primary Care Unavailable Ananda Xavier Attending Unavailable Schinner, Mirta E Referring Unavailable Schinner, Mirta E Referring Unavailable Schinner, Mirta E Primary Care Unavailable Ananda Xavier Attending Unavailable ANANDA XAVIER MD Admitting Unavailable MIRTA JACOBSON Consulting Unavailable ANANAD XAVIER MD Attending Unavailable ANANDA XAVIER MD Primary Care Unavailable PROVIDER, UNKNOWN Consulting Unavailable MIRTA JACOBSON E Consulting Unavailable ANANDA XAVIER MD Attending Unavailable ANANDA XAVIER MD Primary Care Unavailable ANANDA XAVIER MD Admitting Unavailable PROVIDER, UNKNOWN Consulting Unavailable Allergies Allergy Classification Reported Allergen(s) Allergy Type Date of Onset Reaction(s) Facility (13 sources) Adhesive Tape; Translations: [adhesive tape] Allergy to substance 1 PT UNSURE OF REACTION [facility] (12 sources) HYDROcodone Drug Allergy 1 Other [facility] (5 sources) egg extract Drug Allergy 5 Diarrhea [facility] (1 source) egg extract Drug Allergy 5 [facility] (1 source) HYDROcodone Drug Allergy 5 [facility] (1 source) Acetaminophen / HYDROcodone Drug Allergy [facility] (1 source) Egg Drug allergy (disorder) [facility] Medications Current Medications Medication Drug Class(es) Dates Sig (Normalized) Sig (Original) Albuterol (7 sources) beta2-Adrenergic Agonist Start: 07-27-2021 Albuterol Active 90 MCG INHALATION NEEDED July 27, 2021 12:36pm Start: 07-27-2021 Albuterol Acti ve 90 MCG INHALATION NEEDED July 26, 2021 11:00pm Start: 07-27-2021 Albuterol Acti ve 90 MCG INHALATION NEEDED July 27, 2021 12:00am Albuterol 90 mcg/actuation Aerosol (5 sources) Start: 07-27-2021 Albuterol 90 mcg/actuation Aerosol Active 90 ug INHALATION NEEDED as needed for ASTHMA July 27, 2021 12:00am cholecalciferol 1.25 mg oral capsule (5 sources) Vitamin D Start: 02-04-2025 Cholecalciferol (Vitamin D3) 1,250 mcg (50,000 unit) capsule Active 1250 ug PO FR February 04, 2025 12:00am cloNIDine hydrochloride 0.2 mg oral tablet (5 sources) Central alpha-2 Adrenergic Agonist Start: 11-28-2024 take 1 tablet by mouth at bedtime Clonidine Hcl 0.2 mg tablet Active 0.2 mg PO AT BEDTIME November 28, 2024 1:00am HOT FLASHES ergocalciferol 0.05 mg oral capsule (1 source) Provitamin D2 Compound Start: 07-18-2021 take 50 ug by mouth every week Ergocalciferol (Vitamin D2) Active 50 MCG PO EVERY WEEK July 18, 2021 3:02pm famotidine 10 mg oral tablet (1 source) Histamine-2 Receptor Antagonist Start: 07-18-2021 take 10 mg by mouth at bedtime Famotidine Active 10 MG PO AT BEDTIME July 18, 2021 3:01pm loratadine 10 mg oral tablet (12 sources) Start: 07-27-2021 Loratadine (Claritin) 10 mg Tablet Active 10 mg PO NEEDED as needed for ALLERGIES July 27, 2021 12:00am Completed/Discontinued Medications Medication Drug Class(es) Dates Sig (Normalized) Sig (Original) acetaminophen 325 mg / oxyCODONE hydrochloride 2.5 mg oral tablet (20 sources) Opioid Agonist Start: 02-18-2025 End: 02-21-2025 Oxycodone-Acetamino phen (Percocet) 5-325 mg tablet Discontinued 1 {tbl} PO Q4H as needed for pain 20 3 0 February 18, 2025 February 20, 2025 12:00am February 21, 2025 12:09am Tear of left rotator cuff Start: 02-18-2025 End: 02-18-2025 Oxycodone-Acetaminophen (End ocet) 2.5-325 mg tablet Discontinued 1 {tbl} PO Q4H as needed for pain 20 3 0 February 18, 2025 February 18, 2025 3:34pm Tear of left rotator cuff Start: 07-14-2022 End: 11-28-2024 Oxycodone-Acetaminophen 5-32 5 mg tablet Discontinued 1 {tbl} PO EVERY 6 HOURS NEEDED as needed for Pain 12 3 0 July 14, 2022 November 28, 2024 11:20am Abdominal pain Unspecified abdominal pain Start: 07-14-2022 take 1 tablet by joaquin th every six hours as needed Oxycodone-Acetaminophen Active 1 TABLET PO EVERY 6 HOURS NEEDED 12 3 July 14, 2022 Start: 09-14-2021 take 1 tablet by joaquin th every six hours Oxycodone-Acetaminophen (Percocet) 5-325 mg tablet Active 1 TABLET PO EVERY 6 HOURS 8 2 September 14, 2021 4:15pm amoxicillin 500 mg oral capsule (8 sources) Penicillin-class Antibacterial Start: 10-30-2023 End: 11-09-2023 take 1 capsule by mouth three times daily Amoxicillin 500 mg capsule Discontinued 500 mg PO THREE TIMES A DAY 30 10 0 October 30, 2023 1:00am November 08, 2023 1:00am November 09, 2023 1:05am azithromycin 250 mg oral tablet (5 sources) Macrolide Antimicrobial Start: 12-24-2024 End: 12-29-2024 take 2-5 tablets by mouth once daily Azithromycin (Zithromax Z-Thien) 250 mg tablet Discontinued 0 PO .COMPLEX 6 December 24, 2024 1:00am December 29, 2024 12:17pm take 500 mg today (day 1), then 250 mg for 4 days (days 2-5) PO erythromycin 0.005 mg/mg ophthalmic ointment (5 sources) Macrolide, Macrolide Antimicrobial Start: 06-09-2024 End: 11-28-2024 Erythromycin 5 mg/gram (0.5 %) ointment Discontinued 1 cm OPHTHALMIC EVERY 6 HOURS 1 June 09, 2024 12:00am November 28, 2024 11:20am Apply 1 cm ribbon to right eye at least 4x per day for 7 days. 12 hr guaiFENesin 1200 mg extended release oral tablet (5 sources) Start: 06-09-2024 End: 11-28-2024 take 1 tablet by mouth twice daily as needed for congestion Guaifenesin 1,200 mg tablet extended release 12hr Discontinued 1200 mg PO TWICE A DAY as needed for congestion 14 June 09, 2024 12:00am November 28, 2024 11:20am meloxicam 7.5 mg oral tablet (5 sources) Nonsteroidal Anti-inflammatory Drug Start: 12-04-2024 End: 05-11-2025 take 1 tablet by mouth twice daily as needed for pain Meloxicam 7.5 mg tablet Discontinued 7.5 mg PO TWICE A DAY as needed for pain 30 14 December 04, 2024 1:00am May 11, 2025 9:56am methylPREDNISolone 4 mg oral tablet (5 sources) Corticosteroid Start: 12-24-2024 End: 02-04-2025 Methylprednisolone 4 mg tablets,dose pack Discontinued 0 PO per package directions 21 December 24, 2024 1:00am February 04, 2025 10:14am PO PER PKG DIR Problems Active Problems Problem Classification Problem Date Documented Date Episodic/Chronic Abdominal pain (13 sources) Unspecified abdominal pain; Translations: [Abdominal pain] Onset: 07-06-2017 09-17-2022 Episodic Acute bronchitis (8 sources) Acute bronchitis; Translations: [Acute bronchitis, unspecified] 12-24-2024 Episodic Esophageal disorders (13 sources) Gastroesophageal reflux disease; Translations: [Gastro-esophageal reflux disease without esophagitis] Chronic Inflammation; infection of eye (except that caused by tuberculosis or sexually transmitteddisease) (5 sources) Internal hordeolum of right lower eyelid; Translations: [Hordeolum internum right lower eyelid] 06-10-2024 Episodic Nutritional deficiencies (1 source) Vitamin D deficiency, unspecified; Translations: [Vitamin D deficiency, unspecified] Onset: 11-27-2024 Chronic Other connective tissue disease (20 sources) Tear of left rotator cuff; Translations: [Unspecified rotator cuff tear or rupture of left shoulder, not specified as traumatic] 12-29-2024 Episodic Other connective tissue disease (4 sources) Unspecified rotator cuff tear or rupture of left shoulder, not specified as traumatic; Translations: [Unspecified rotator cuff tear or rupture of left shoulder, not specified as traumatic] Onset: 06-05-2025 Episodic Other lower respiratory disease (5 sources) Cough; Translations: [Cough] 12-24-2024 Episodic Other non-traumatic joint disorders (20 sources) Pain in left shoulder; Translations: [Left shoulder pain] Onset: 02-24-2025 11-28-2024 Episodic Other screening for suspected conditions (not mental disorders or infectious disease) (1 source) Encounter for screening for malignant neoplasm of cervix; Translations: [Encounter for screening for malignant neoplasm of cervix] Onset: 04-22-2025 Episodic Ovarian cyst (11 sources) Cyst of ovary; Translations: [Unspecified ovarian cyst, unspecified side] 07-22-2022 Episodic Unclassified (3 sources) M75.102 - Unspecified rotator cuff tear or rupture of left shoulder, not specified as traumatic,M25.512 - Pain in left shoulder Unclassified (1 source) Tear of left rotator cuff Unclassified (1 source) Left shoulder pain Unclassified (1 source) Cough, unspecified; Translations: [Cough, unspecified] Onset: 12-24-2024 Past or Other Problems Problem Classification Problem Date Documented Da te Episodic/Chronic Other upper respiratory infections (16 sources) Acute sinusitis; Translations: [Acute sinusitis, unspecified] Onset: 12-24-2024 10-30-2023 Episodic Results Test Name Value Interpretation Reference Range Facility Orthopedic Visit Reporton Orthopedic Visit Report [facility] [place] [address] OFFICE VISIT Date of Service: 07/13/25 MR#: [id number] Acct: [id number] Name: SWETHA GERARD Rep #: [id number] : 1980 Provider: Dr. Ananda de la vega MD Age/Sex: 45/F Location: [facility] [place], [place] Status: Signed Intake Vital Signs 02/20/25 10:21 Height 5 ft 9 in Weight: 230 lb BMI 34.0 Intake Visit Reasons: LEFT SHOULDER Chief Complaint: left shouler Accompanied by: Self Is patient in pain?: Yes (left shoulder ) Pain scale (1-10): 1 Allergies adhesive tape Allergy (Mild, Verified 07/13/25 09:55) PT UNSURE OF REACTION hydrocodone (From Vicodin) Allergy (Mild, Verified 07/13/25 09:55) Other egg (eggs) Adverse Reaction (Intermediate, Verified 07/13/25 09:55) Diarrhea Medications ???Medication ???Instructions ???Recorded ???Confirmed ???Type albuterol 90 mcg/actuation aerosol 90 mcg inhalation PRN PRN ASTHMA 07/27/21 07/13/25 History inhaler loratadine 10 mg tablet (Claritin) 10 mg PO PRN PRN ALLERGIES 07/2707/13/25 History clonidine HCl 0.2 mg tablet 0.2 mg PO QHS HOT FLASHES 11/28/24 07/13/25 History cholecalciferol (vitamin D3) 1,250 1,250 mcg PO FR 02/04/25 5 History mcg (50,000 unit) capsule PFSH Medical History Injury of head and neck Left rotator cuff tear Left shoulder pain History of hiatal hernia Wears glasses Arthritis Anemia Gastric reflux Former smoker Asthma Surgical History Hx of removal of ovary History of repair of hiatal hernia History of esophagogastroduodenoscopy (EGD) S/P endometrial ablation S/P tonsillectomy and adenoidectomy S/P tubal ligation S/P laparoscopic cholecystectomy S/P appendectomy Family History Brother Asthma CAD (coronary artery disease) CVA (cerebral vascular accident) Mother Thyroid disorder Daughter Seizures Social History Smoking Status: Former smoker alcohol intake: never HPI LEFT SHOULDER Details: This documentation accurately reflects the service provided and the decisions made by me, Dr. Ananda Xavier MD 07/13/25 0842. Part of today???s visit was documented by [ ], acting as scribe. SWETHA GERARD is a 45 year old F here today for 5 months FU Left shoulder arthroscopy subacromial decompression rotator cuff repair, 2 months from cortisone injection for post op bursitis. Overall patient improving has some mild stiffness. The cortisone injection helped. 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 Coding Level of Care Code Off vis,est,level 3 Diagnoses Left rotator cuff tear M75.102 Assessment and Plan Assessment and Plan (1) Left rotator cuff tear: Status: Acute Plan: SWETHA GERARD is a 45 year old F here today for 5 months FU Left shoulder arthroscopy subacromial decompression rotator cuff repair, 2 months from cortisone injection for post op bursitis. Overall doing well with a slow improvement good strength and good range of motion okay to continue on activities as tolerated follow-up as needed. Ortho Exam General General: Yes no acute distress Neurologic: Yes alert and Yes oriented x3 Psychologic: Yes reasonable and appropriate Left Shoulder Skin/Wound: Yes CDI, Yes healed, No ecchymosis, No erythema and No swelling Testing: No Hawkin's, No Neer's, No Speed's, No TTP Biceps, No TTP AC Joint, Yes AROM-Forward Elevation 0-180, Yes AROM-External Rotation at side 0-60 and No empty can SHOULDER: nvi mru ain/pin ax nerve, strong rad pulse. strength 5/5 in FE and ER. a bit sore in IR. 07/13/25 1010 Date Ananda Xavier MD Cosigner Signature: Date (if applicable) CC: Normal [facility] Orthopedic Visit Reporton Orthopedic Visit Report [facility] [address] [place] [address] [address] [place] [address] OFFICE VISIT Date of Service: 05/11/25 MR#: [id number] Acct: [id number] Name: SWETHA GERARD Rep #: [id number] : 1980 Provider: Dr. Ananda de la vega MD Age/Sex: 44/F Location: [facility] [place] [place] Status: Signed Intake Vital Signs 02/20/25 10:21 Height 5 ft 9 in Weight: 230 lb BMI 34.0 Intake Visit Reasons: LEFT SHOULDER Chief Complaint: 90 day post op left shouler Is patient in pain?: Yes (left shoulder ) Pain scale (1-10): 3 Allergies adhesive tape Allergy (Mild, Verified 05/11/25 09:55) PT UNSURE OF REACTION hydrocodone (From Vicodin) Allergy (Mild, Verified 05/11/25 09:55) Other egg (eggs) Adverse Reaction (Intermediate, Verified 05/11/25 09:55) Diarrhea Medications ???Medication ???Instructions ???Recorded ???Confirmed ???Type albuterol 90 mcg/actuation aerosol 90 mcg inhalation PRN PRN ASTHMA 07/27/21 05/11/25 History inhaler loratadine 10 mg tablet (Claritin) 10 mg PO PRN PRN ALLERGIES 07/2705/11/25 History clonidine HCl 0.2 mg tablet 0.2 mg PO QHS HOT FLASHES 11/28/24 05/11/25 History cholecalciferol (vitamin D3) 1,250 1,250 mcg PO FR 02/04/25 5 History mcg (50,000 unit) capsule PFSH Medical History Injury of head and neck Left rotator cuff tear Left shoulder pain History of hiatal hernia Wears glasses Arthritis Anemia Gastric reflux Former smoker Asthma Surgical History Hx of removal of ovary History of repair of hiatal hernia History of esophagogastroduodenoscopy (EGD) S/P endometrial ablation S/P tonsillectomy and adenoidectomy S/P tubal ligation S/P laparoscopic cholecystectomy S/P appendectomy Family History Brother Asthma CAD (coronary artery disease) CVA (cerebral vascular accident) Mother Thyroid disorder Daughter Seizures Social History Smoking Status: Former smoker alcohol intake: never HPI LEFT SHOULDER Details: This documentation accurately reflects the service provided and the decisions made by me, Dr. Ananda Xavier MD 05/11/25 0911. Part of today???s visit was documented by [ ], acting as scribe. SWETHA GERARD is a 44 year old F here today for 3 months FU Left shoulder arthroscopy subacromial decompression rotator cuff repair. Patient has some mild to moderate pain worse at night. Has been doing the physical therapy started strengthening for 3 to 4 weeks. Most pain is laterally and posteriorly of the shoulder worse with lifting. Office Procedures Ortho Injections Injections Is this a patient provided medication?: No Details: Obtained consent for injection. Under sterile conditions, injected the patients left shoulder with 2mL Kenalog and 4mL Bupivacaine. The patient tolerated the injection well without any noted complication. Patient should call our office if redness develops, pain worsens or if they have any concerns. Office Meds Kenalog 40 mg/mL suspension for injection Performing Provider: Ananda Xavier MD Performing Location: [facility] Administered by: Ananda Xavier MD on 05/11/25 10:15 Dose Route Admin Location Dispensed Lot Number Expiration Date NDC Man ufacturer 80 mg intra-articular left shoudler 2 mL [id number] 06/05/27 8481-5197-50 BM [facility] [employer] Coding Level of Care Code Attention Five Piece Expansion Maker Hand Diagnoses Left rotator cuff tear M75.102 Left shoulder pain M25.512 Comment Postop and CPT inject major joint Assessment and Plan Assessment and Plan (1) Left rotator cuff tear: Status: Acute Plan: SWETHA GERARD is a 44 year old F here today for 3 months FU Left shoulder arthroscopy subacromial decompression rotator cuff repair. Patient has some mild irritation bursitis from the operation. I recommend a trial of 2 weeks of rest from the physical therapy gradual return back into that patient cortisone injection which we have done today. They will follow-up in 6 to 8 weeks. Pros and cons risks and benefits of left shoulder subacromial steroid injection were discussed. Patient wished to proceed. Risks include but not limited to infection, pain, stiffness, damage to other structures, neurovascular injury, wear further tear of the tendon and other structures such as the skin, bleeding, allergic reaction, acute flare reaction and other risks. Obtained informed consent for injection. Posterior lateral aspect of the shoulder was prepped with chlorhexidine solution allowed to thoroughly dry over 3 minutes. Used Gebauer spray per bottle instructions. Using sterile technique, inje (more content not included)... Normal [facility] PAP I-G CT/NG/T RF HPVon ADEQ Comment Normal . [facility] Comment on above: Order Comment: Specsherry men Comment: [id number] Comment: No. of containers..01 ThinPrep Vial Result Comment: Sati sfactory for evaluation. Endocervical and/or squamous metaplastic cells (endocervical component) are present. Performed By: #### L 7400.0325 ####[facility] [address] [place], [address] CHLAMY,NUC ACID Negative Normal Negative [facility] Comment on above: Order Comment: [facility] Comment: [id number] Comment: No. of containers..01 ThinPrep Vial Performed By: #### L 7400.0325 ####[facility] [address] [facility] [place], [address] COMM . Normal . [facility] Comment on above: Order Comment: [facility] Comment: [id number] Comment: No. of containers..01 ThinPrep Vial Performed By: #### L 7400.0325 ####[facility] [address] [place], [address] COMMENT Comment Normal . [facility] Comment on above: Order Comment: Bharath villalpando Comment: [id number] Comment: No. of containers..01 ThinPrep Vial Result Comment: This liquid based ThinPrep(R) pap test was screened with the use of an image guided system. Performed By: #### L 7400.0325 ####[facility] [address] [place], [address] DIAG Comment Normal . [facility] Comment on above: Order Comment: Speci men Comment: [id number] Comment: No. of containers..01 ThinPrep Vial Result Comment: NEGA TIVE FOR INTRAEPITHELIAL LESION OR MALIGNANCY. Performed By: #### L 7400.0325 ####[facility] [address] [place], [address] GC BY NUC ACID Negative Normal Negative [facility] Comment on above: Order Comment: Speci men Comment: [id number] Comment: No. of containers..01 ThinPrep Vial Performed By: #### L 7400.0325 ####[facility] [address] [place], [address] PAPSMR Comment Normal . [facility] Comment on above: Order Comment: Speci men Comment: [id number] Comment: No. of containers..01 ThinPrep Vial Result Comment: The Pap smear is a screening test designed to aid in the detection of premalignant and malignant conditions of the uterine cervix. It is not a diagnostic procedure and should not be used as the sole means of detecting cervical cancer. Both false-positive and false-negative reports do occur. Performed By: #### L 7400.0325 ####[facility] [address] [place], [address] PERFORM Comment Normal . [facility] Comment on above: Order Comment: Speci men Comment: [id number] Comment: No. of containers..01 ThinPrep Vial Result Comment: Merari Jaimes Technical Administrator (ASCP) Performed By: #### L 7400.0325 ####[facility] [address] [place], [address] TRICH VAG RAJI Negative Normal Negative [facility] Comment on above: Order Comment: Speci men Comment: [id number] Comment: No. of containers..01 ThinPrep Vial Result Comment: Perf ormed at: WB - [facility] [address] [id number] Gyroscopic Engineering Technician: Bridgette Gamboa MD, Phone: [phone] Performed at: =G - [facility] [id number] Gyroscopic Engineering Technician: Bridgette Gamboa MD, Phone: [phone] Performed By: #### L 7400.0325 ####[facility] [address] [place], [address] Cervical or vagninal specime n microscopic examination by cytology stain (reported asOrdered By: Mirta Jacobson on 04-15-2025 Cytology report Cyto stain Doc (Cvx/Vag) Comment . [facility] Comment on above: The Pap smear is a s creening test designed to aid in thedetection of premalignant and malignant conditions of theuterine cervix. It is not a diagnostic procedure andshould not be used as the sole means of detecting cervicalcancer. Both false-positive and false-negative reports dooccur. Laboratory - CytologyOrdered By: Mirta Jacobson on 04-15-2025 Technical Administrator Cyto stain Nom (Cvx/Vag) [ID] Comment . [facility] Comment on above: Jasmin Jaimes Cyto logist (ASCP) Laboratory - Miscellaneous t estsOrdered By: Mirta Jacobson on 04-15-2025 Service comment (Unsp spec) [Interp] . . [facility] Neisseria gonorrhoeae nuclei c acid detection by amplified probe techniqueOrdered By: Mirta Jacobson on 04-15-2025 N. gonorrhoeae DNA RAJI+probe Ql (Unsp spec) Negative Negative [facility] No Panel InformationOrdered By: Mirta Jacobson on 04-15-2025 Pap Smear Specimen Adequacy Comment . [facility] Comment on above: Satisfactory for andrew luation. Endocervical and/or squamous metaplasticcells (endocervical component) are present. Trichomonas vaginalis detect ion by nucleic acid amplificationOrdered By: Mirta Jacobson on 04-15-2025 C. trachomatis DNA RAJI+probe Ql (Unsp spec) Negative Negative [facility] Comment on above: *Additional results available. Contact laboratory/see report*Performed at: [facility] [address] [id number] Director: Bridgette Gamboa MD, Phone: [phone] at: =[facility] LabGetable[address] [place], [place] [id number] Director: Bridgette Gamboa MD, Phone: [phone] Orthopedic Visit Reporton Orthopedic Visit Report [facility] [address] [place] [address] OFFICE VISIT Date of Service: 04/02/25 MR#: [id number] Acct: [id number] Name: SWETHA GERARD Rep #: [id number] : 1980 Provider: Dr. Ananda de la vega MD Age/Sex: 44/F Location: [facility] [place] [place] Status: Signed Intake Vital Signs 02/20/25 10:21 Height 5 ft 9 in Weight: 230 lb BMI 34.0 Intake Visit Reasons: LEFT SHOULDER Chief Complaint: 6 week post op Accompanied by: Is patient in pain?: Yes Allergies adhesive tape Allergy (Mild, Verified 04/02/25 09:51) PT UNSURE OF REACTION hydrocodone (From Vicodin) Allergy (Mild, Verified 04/02/25 09:51) Other egg (eggs) Adverse Reaction (Intermediate, Verified 04/02/25 09:51) Diarrhea Medications ???Medication ???Instructions ???Recorded ???Confirmed ???Type albuterol 90 mcg/actuation aerosol 90 mcg inhalation PRN PRN ASTHMA 07/27/21 04/02/25 History inhaler loratadine 10 mg tablet (Claritin) 10 mg PO PRN PRN ALLERGIES 07/2704/02/25 History clonidine HCl 0.2 mg tablet 0.2 mg PO QHS HOT FLASHES 11/28/24 04/02/25 History meloxicam 7.5 mg tablet 7.5 mg PO BID PRN pain 2 weeks #30 12/04/24 04/02/25 Rx tabs cholecalciferol (vitamin D3) 1,250 1,250 mcg PO FR 02/04/25 5 History mcg (50,000 unit) capsule PFSH Medical History Injury of head and neck Left rotator cuff tear Left shoulder pain History of hiatal hernia Wears glasses Arthritis Anemia Gastric reflux Former smoker Asthma Surgical History Hx of removal of ovary History of repair of hiatal hernia History of esophagogastroduodenoscopy (EGD) S/P endometrial ablation S/P tonsillectomy and adenoidectomy S/P tubal ligation S/P laparoscopic cholecystectomy S/P appendectomy Family History Brother Asthma CAD (coronary artery disease) CVA (cerebral vascular accident) Mother Thyroid disorder Daughter Seizures Social History Smoking Status: Former smoker alcohol intake: never HPI LEFT SHOULDER Details: This documentation accurately reflects the service provided and the decisions made by me, Dr. Ananda Xavier MD 04/02/25 0804. Part of today???s visit was documented by [ ], acting as scribe. SWETHA GERARD is a 44 year old F here today for 6 weeks FU Left shoulder arthroscopy subacromial decompression rotator cuff repair. Doing well here with her starting physical therapy has a little bit of crepitus some mild pain at the lower lateral end of the humerus. Coding Level of Care Code Global Post Op Diagnoses Left rotator cuff tear M75.102 Assessment and Plan Assessment and Plan (1) Left rotator cuff tear: Status: Acute Plan: SWETHA GERARD is a 44 year old F here today for 6 weeks FU Left shoulder arthroscopy subacromial decompression rotator cuff repair. Overall patient is doing well okay to start strengthening follow-up in 2 months time. Okay to do some light kayaking. Phase 1: Initial Protection and Pain Management (Weeks 1-2) Dressing: Keep incisions clean and dry. Change dressing every 1-2 days. Sling: Wearing a sling for comfort and to protect the surgical repair Pain Management: Ice, rest, and pain medication are used to control pain and swelling. Gentle Movement: Early passive range of motion exercises are introduced to prevent stiffness. Perform pendulum exercises 4x/day, where the patient gently swings the arm in a controlled manner. Maintaining range of motion and strength in the elbow, wrist, and hand is important to prevent stiffness and muscle atrophy. Phase 2: Gradual Taoist of Motion (Weeks 2-6) Gradually discontinue the sling starting 2 weeks after surgery. Active Assisted Range of Motion: Gradually increasing the range of motion with assistance from the unaffected arm or a physical therapist is introduced. Phase 3: Gradual Taoist of Strength (Weeks 6-12) Light Strengthening: Isometrics and gentle resistance exercises are started to strengthen the rotator cuff muscles. Progression of Exercises: Exercises progress from simple movements like scapular retraction to more complex ones like lateral elevation and external rotation. Phase 4: Functional Exercises and Return to Activity (Weeks 12+) Advanced Strengthening: More challenging exercises are added to further strengthen the shoulder and improve stability. Functional Activities: Exercises that mimic daily activities and sports-specific movements are incorporated to prepare the patient for a return to their desired level of activity. Ortho Exam General General: Y (more content not included)... Normal [facility] Orthopedic Visit Reporton Orthopedic Visit Report [facility] [address] [place] [address] [address] [place] [address] OFFICE VISIT Date of Service: 03/05/25 MR#: [id number] Acct: [id number] Name: SWETHA GERARD Rep #: [id number] : 1980 Provider: Dr. Ananda de la vega MD Age/Sex: 44/F Location: [facility] [place] [place] Status: Signed Intake Vital Signs 12/24/24 10:57 02/20/25 10:21 Height 5 ft 8 in 5 ft 9 in Intake Visit Reasons: left shoulder Chief Complaint: 2 week post op Accompanied by: Is patient in pain?: Yes Allergies adhesive tape Allergy (Mild, Verified 03/05/25 10:02) PT UNSURE OF REACTION hydrocodone (From Vicodin) Allergy (Mild, Verified 03/05/25 10:02) Other egg (eggs) Adverse Reaction (Intermediate, Verified 03/05/25 10:02) Diarrhea Medications ???Medication ???Instructions ???Recorded ???Confirmed ???Type albuterol 90 mcg/actuation aerosol 90 mcg inhalation PRN PRN ASTHMA 07/27/21 03/05/25 History inhaler loratadine 10 mg tablet (Claritin) 10 mg PO PRN PRN ALLERGIES 07/2703/05/25 History clonidine HCl 0.2 mg tablet 0.2 mg PO QHS HOT FLASHES 11/28/24 03/05/25 History meloxicam 7.5 mg tablet 7.5 mg PO BID PRN pain 2 weeks #30 12/04/24 03/05/25 Rx tabs cholecalciferol (vitamin D3) 1,250 1,250 mcg PO FR 02/04/25 5 History mcg (50,000 unit) capsule PFSH Medical History Injury of head and neck Left rotator cuff tear Left shoulder pain History of hiatal hernia Wears glasses Arthritis Anemia Gastric reflux Former smoker Asthma Surgical History Hx of removal of ovary History of repair of hiatal hernia History of esophagogastroduodenoscopy (EGD) S/P endometrial ablation S/P tonsillectomy and adenoidectomy S/P tubal ligation S/P laparoscopic cholecystectomy S/P appendectomy Family History Brother Asthma CAD (coronary artery disease) CVA (cerebral vascular accident) Mother Thyroid disorder Daughter Seizures Social History Smoking Status: Former smoker alcohol intake: never HPI left shoulder Details: This documentation accurately reflects the service provided and the decisions made by me, Dr. Ananda Xavier MD 03/05/25 8338. Part of today???s visit was documented by [ ], acting as scribe. SWETHA GERARD is a 44 year old F here today for 2 weeks FU Left shoulder arthroscopy subacromial decompression rotator cuff repair. Doing well no acute concerns some mild pain with range of motion exercises has [facility]. Wears a sling mostly around in public but at home has been taking some breaks had to be sleeping upright for pain control. Coding Level of Care Code Global Post Op Diagnoses Left rotator cuff tear M75.102 Assessment and Plan Assessment and Plan (1) Left rotator cuff tear: Status: Acute Plan: SWETHA GERARD is a 44 year old F here today for 2 weeks FU Left shoulder arthroscopy subacromial decompression rotator cuff repair. OK to shower over incisions. DC sling. FU 4-6 weeks. Phase 1: Initial Protection and Pain Management (Weeks 1-2) Dressing: Keep incisions clean and dry. Change dressing every 1-2 days. Sling: Wearing a sling for comfort and to protect the surgical repair Pain Management: Ice, rest, and pain medication are used to control pain and swelling. Gentle Movement: Early passive range of motion exercises are introduced to prevent stiffness. Perform pendulum exercises 4x/day, where the patient gently swings the arm in a controlled manner. Maintaining range of motion and strength in the elbow, wrist, and hand is important to prevent stiffness and muscle atrophy. Phase 2: Gradual Taoist of Motion (Weeks 2-6) Gradually discontinue the sling starting 2 weeks after surgery. Active Assisted Range of Motion: Gradually increasing the range of motion with assistance from the unaffected arm or a physical therapist is introduced. Phase 3: Gradual Taoist of Strength (Weeks 6-12) Light Strengthening: Isometrics and gentle resistance exercises are started to strengthen the rotator cuff muscles. Progression of Exercises: Exercises progress from simple movements like scapular retraction to more complex ones like lateral elevation and external rotation. Phase 4: Functional Exercises and Return to Activity (Weeks 12+) Advanced Strengthening: More challenging exercises are added to further strengthen the shoulder and improve stability. Functional Activities: Exercises that mimic daily activities and sports-specific movements are incorporated to prepare the patient for a return to their desired level of activity. Ortho Exam (more content not included)... Normal [facility] Orthopedic Visit Reporton Orthopedic Visit Report [facility] [address] [place] [address] OFFICE VISIT Date of Service: 02/20/25 MR#: [id number] Acct: [id number] Name: SWETHA GERARD Rep #: [id number] : 1980 Provider: Dr. Ananda de la vega MD Age/Sex: 44/F Location: [facility] [place] [place] Status: Signed Intake Vital Signs 12/24/24 10:57 02/18/25 10:17 02/20/25 10:21 Height 5 ft 8 in 5 ft 9 in 5 ft 9 in Weight: 230 lb BMI 34.0 Intake Visit Reasons: left shoulder Chief Complaint: 2 day post op Accompanied by: Self Is patient in pain?: Yes Pain scale (1-10): 4 Allergies adhesive tape Allergy (Mild, Verified 02/20/25 10:23) PT UNSURE OF REACTION hydrocodone (From Vicodin) Allergy (Mild, Verified 02/20/25 10:23) Other egg (eggs) Adverse Reaction (Intermediate, Verified 02/20/25 10:23) Diarrhea Medications ???Medication ???Instructions ???Recorded ???Confirmed ???Type albuterol 90 mcg/actuation aerosol 90 mcg inhalation PRN PRN ASTHMA 07/27/21 02/20/25 History inhaler loratadine 10 mg tablet (Claritin) 10 mg PO PRN PRN ALLERGIES 07/2702/20/25 History clonidine HCl 0.2 mg tablet 0.2 mg PO QHS HOT FLASHES 11/28/24 02/20/25 History meloxicam 7.5 mg tablet 7.5 mg PO BID PRN pain 2 weeks #30 12/04/24 02/20/25 Rx tabs cholecalciferol (vitamin D3) 1,250 1,250 mcg PO FR 02/04/25 5 History mcg (50,000 unit) capsule oxycodone-acetaminophen 5 mg-325 1 tab PO Q4H PRN pain 3 days #20 0 02/18/25 02/20/25 Rx mg tablet (Percocet) tabs Have you fallen in the past year?: No PFSH Medical History Injury of head and neck Left rotator cuff tear Left shoulder pain History of hiatal hernia Wears glasses Arthritis Anemia Gastric reflux Former smoker Asthma Surgical History Hx of removal of ovary History of repair of hiatal hernia History of esophagogastroduodenoscopy (EGD) S/P endometrial ablation S/P tonsillectomy and adenoidectomy S/P tubal ligation S/P laparoscopic cholecystectomy S/P appendectomy Family History Brother Asthma CAD (coronary artery disease) CVA (cerebral vascular accident) Mother Thyroid disorder Daughter Seizures Social History Smoking Status: Former smoker alcohol intake: never HPI left shoulder Details: This documentation accurately reflects the service provided and the decisions made by me, Dr. Ananda Xvaier MD 02/20/25 0822. Part of today???s visit was documented by [ ], acting as scribe. SWETHA GERARD is a 44 year old F here today for POD 2 Left shoulder arthroscopy subacromial decompression rotator cuff repair. Doing well here with her the block wore off pain is settling down. Coding Level of Care Code Global Post Op Diagnoses Left shoulder pain M25.512 Left rotator cuff tear M75.102 Assessment and Plan Assessment and Plan (1) Left shoulder pain: Status: Acute Plan: SWETHA GERARD is a 44 year old F here today for POD 2 Left shoulder arthroscopy subacromial decompression rotator cuff repair. Put new dressings on today. Made a physical therapy referral the patient understands no further questions or concerns. Patient had a bit of a tape reaction but we will try to avoid any sort of similar adhesives but she is understanding of the need for some type of dressing for now, and the patient is used to dealing with that they did try to use some Jeronimo wrap to take a shower. Follow-up 2 weeks Phase 1: Initial Protection and Pain Management (Weeks 1-2) Dressing: Keep incisions clean and dry. Change dressing every 1-2 days. Sling: Wearing a sling for comfort and to protect the surgical repair Pain Management: Ice, rest, and pain medication are used to control pain and swelling. Gentle Movement: Early passive range of motion exercises are introduced to prevent stiffness. Perform pendulum exercises 4x/day, where the patient gently swings the arm in a controlled manner. Maintaining range of motion and strength in the elbow, wrist, and hand is important to prevent stiffness and muscle atrophy. Phase 2: Gradual Taoist of Motion (Weeks 2-6) Gradually discontinue the sling starting 2 weeks after surgery. Active Assisted Range of Motion: Gradually increasing the range of motion with assistance from the unaffected arm or a physical therapist is introduced. Phase 3: Gradual Taoist of Strength (Weeks 6-12) Light Strengthening: Isometrics and gentle resistance exercises are started to strengthen the rotator cuff muscles. Progression of Exercises: Exercises progress from s (more content not included)... Normal [facility] Discharge Instructionon 02-03 Discharge Instruction [facility] Medical Records Department [address] [place] [address] Instructions for Home/Discharge Instructions 02/18/25 1404 MR#: [id number] Acct: [id number] Name: SWETHA GERARD Rep #: [id number] : 1980 44 From: Ananda Xavier MD PCP: Dr. Mirta Jacobson MD [place] Instructions Diet Discharge Diet: No restrictions Activity Ice area for (Minutes): 10 Lifting Restrictions: no lifting, pendulums 4x/day Additional Activity Instructions:: ok for hand wrist elbow rom, ok to remove sling at rest Dressing / Incision Call your doctor if your incision/area has: Continuous Slow Oozing, Sudden Increased Bleeding, Increased Pain/ Swelling, Increased Redness, Foul Smelling Discharge and Swelling at the incision site Call your doctor if you observe: Fever of 101 or Higher, Coldness, Increased Pain and Numbness or Tingling Change Dressing in: leave in place till F/U Cleanse incision/area with: Do not get Incision Wet Follow Up Care Please Follow Up With: Ananda Xavier MD When: 2 days or within 2 weeks Test Results: Test results from this visit will be discussed in further detail at your follow-up appointment, if applicable. Discharge Plan Admission Attending Provider: Ananda Xavier Primary Care Provider: Mirta Jacobson Instructions Patient Instructions: After Shoulder Arthroscopy Print Language: Kosovan Discharge Orders/Prescriptions Prescriptions: New oxycodone-acetaminophen [Endocet] 2.5-325 mg tablet 1 tab PO Q4H MDD 6 PRN (Reason: pain) 3 Days Qty: 20 0RF No Action clonidine HCl 0.2 mg tablet 0.2 mg PO QHS Patient Comments: [NO ORIGINAL SIG] albuterol 90 mcg/actuation Aerosol 90 mcg INHALATION PRN PRN (Reason: ASTHMA) loratadine [Claritin] 10 mg Tablet 10 mg PO PRN PRN (Reason: ALLERGIES) cholecalciferol (vitamin D3) 1,250 mcg (50,000 unit) capsule 1,250 mcg PO FR meloxicam 7.5 mg tablet 7.5 mg PO BID MDD 2 PRN (Reason: pain) 14 Days Qty: 30 1RF Referrals / Follow Up: Mirta Jacobson MD [Primary Care Provider] - Disposition Disposition (needs filled in before D/C Order can be placed): Home, Self Care 02/18/25 1406 Ananda Xavier MD CC: Dr. Mirta Jacobson MD Signed [facility] MR/POSTOP.[facility] 02-18-2025 MR/POSTOP.[facility] Medical Records Department [address] [place] [address] Anesthesia Postop Eval I 02/18/25 1453 MR#: [id number] Acct: [id number] Name: SWETHA GERARD Rep #: [id number] : 1980 44 From: Hari Castro MD PCP: Dr. Mirta Jacobson MD [place] [place] Race: C Location: [place] [address] Anesthesia: Postop Eval I Current Vital Signs Temperature: 97 F Pulse Rate: 61 Blood Pressure: 105/73 Respiratory Rate: 16 Pulse Ox: 95 Oxygen Delivery Method: Room Air Assessment Airway patent: Yes Spontaneous unlabored respirations: Yes Mental status: Awake nausea: No Vomiting: No Anesthesia Complication: No Fluid Hydration Crystalloid volume administer (ml): 600 Total IV fluid infused: 600 Progress Note Anesthesia document: Postop Eval 1 completed: Yes 02/18/25 1454 Date Hari Castro MD [facility] Signature: Date CC: Signed Normal [facility] MR/[id number] 02-18-2025 MR/POSTOPAN2 [facility] Medical Records Department [address] [facility] [place] [address] Anesthesia Postop Eval II 02/18/25 1455 MR#: [id number] Acct: [id number] Name: SWETHA GERARD Rep #: [id number] : 1980 44 From: Hari Castro MD PCP: Dr. Mirta Jacobson MD [place] [place] Race: C Location: [place] [address] Anesthesia Postop Eval I Sum Postop Eval Completion status Anesthesia document: Postop Eval 1 completed: Yes Anesthesia Postop Eval I Summary Anesthesia Postop Eval I Summary: Anesthesia Postop Eval I: Assessment Summary Airway patent Yes 02/18/25 14:54 Spontaneous unlabored Yes 02/18/25 14:54 respirations Mental status Awake 02/18/25 14:54 nausea No 02/18/25 14:54 Vomiting No 02/18/25 14:54 Anesthesia Postop Eval I: Fluid Summary Crystalloid volume administer 600 02/18/25 14:54 (ml) Colloids volume administered ( ml) Blood Product volume administered (ml) Total IV fluid infused 600 02/18/25 14:54 Anesthesia Postop Eval I: Summary Notes Anesthesia Complication No 02/18/25 14:54 Anesthesia Complication Comment: Post-operative progress note Anesthesia: Postop Eval II Evaluation Mental status: Awake Pain Level: 2 nausea: No Vomiting: No 02/18/25 1455 Date Hari Hebert Signature: Date CC: Signed Normal [facility] Operative Reporton 5 Operative Report [facility] Medical Records Department [address] [place] [address] Operative Report 02/18/25 1356 MR#: [id number] Acct: [id number] Name: SWETHA GERARD Rep #: [id number] : 1980 44 From: Ananda Xavier MD PCP: Dr. 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 Tile Ditcher: farhad Tasks completed by pediatric assistant: Retracting Type of Anesthesia: Block,Regional and General RN Documented Start/Stop Times: Operation Date: 02/18/25 11:50 Case Time Into Pre-Op 02/18/25 10:16 Anesthesia Start 02/18/25 12:57 Into Room 02/18/25 12:57 Procedure Start 02/18/25 13:19 Procedure Start Time: 13:19 Procedure Stop Time: 14:00 Select all DRAINS/GRAFTS/IMPLANTS that apply: Implanted device Implanted device details: Arthrex knotless fiber tack RC rotator cuff repair anchors 2.6mm x 2 Estimated Blood Loss: 25 Specimen collected: No Description of surgery: Patient brought to the operating room theater. Placed supine on the table. General anesthesia induced. Patient transferred left side up lateral decubitus beanbag positioner axillary roll used. All bony prominences padded. SCDs and legs. 2 g IV Ancef administered prior to the start of the case. Upper extremity prepped and draped in the usual sterile fashion with chlorhexidine-based prep solution allowing over 3 minutes drying time prior to draping. 10 pounds of inline traction with the arm in 40 degrees of abduction was used. Preoperative timeout performed confirm the site patient and surgery. Began by inserting the arthroscope into the intra-articular portion of the shoulder through a standard posterior arthroscopy portal. Did a full diagnostic arthroscopy. Normal cartilage on the glenoid and humeral head. No loose bodies. The labrum appeared slightly degenerative at the biceps attachment, so did gentle debridement for type 1 slap. I made anterior portal through the rotator interval. No under surface cuff tears, subscapularis normal. Next I turned my attention to and placed the scope in the subacromial space. I did a bursectomy there is a moderate amount of inflammatory bursitis. I did a subacromial decompression for 3 mm. I examined the superior aspect of the rotator cuff. There is an area of partial-thickness intra tendon tearing. I elected to do a trans tendon repair technique. I placed 2 anchors both Arthrex knotless self punching 2.6 mm fiber tack anchors. One just anterior to the tear and 1 just posterior to the tear. Rotator cuff tendon appeared healthy overall. I then used the repair suture transferred this to the shuttling suture from the contralateral anchor and converted the anchor. I then did the opposite for the posterior anchor to create a [id number] to suture configuration. This was appropriately tensioned and suture was cut short. Arthroscopy pictures taken and saved onto the case. Skin closed with 3-0 Monocryl. Skin cleaned with wet dry dressing followed application of Steri- Strips Adaptic 4 x 4 gauze ABD dressing cloth tape and an abduction pillow sling for the upper extremity. Patient woken up from general anesthetic transferred off the operating table and taken to postanesthetic care unit in stable condition. All sponge needle instrument counts were correct no complications plan for the patient discharge home according to day surgery criteria follow-up in the office in 2 weeks time and wearing the sling with breaks. CPT 63670, 03797 Surgical Findings: as above Complications Complications: No Admit VTE Documentation VTE Present on Admission: No VTE Mechan Device Prophylaxis: SCD's VTE Pharm Prophylaxis ordered?: No Reason prophylaxis not ordered: Treatment Not Indicated 02/18/25 0753 Cosigner Signature (if applicable): CC: Dr. Mirta Jacobson MD; Dr. Ananda Xavier MD Signed [facility] Orthopedic Visit Reporton Orthopedic Visit Report [facility] [address] [place] [address] OFFICE VISIT Date of Service: 12/29/24 MR#: [id number] Acct: [id number] Name: SWETHA GERARD Rep #: [id number] : 1980 Provider: Dr. Ananda de la vega MD Age/Sex: 44/F Location: [facility] [place] [place] Status: Signed Intake Vital Signs 11/28/24 10:18 12/24/24 10:57 Height 5 ft 8 in 5 ft 8 in Weight: 239 lb BMI 36.3 Intake Visit Reasons: LEFT SHOULDER Accompanied by: Self Allergies adhesive tape Allergy (Mild, Verified 12/29/24 11:17) PT UNSURE OF REACTION hydrocodone (From Vicodin) Allergy (Mild, Verified 12/29/24 11:17) Other Medications ???Medication ???Instructions ???Recorded ???Confirmed ???Type albuterol 90 mcg/actuation aerosol 90 mcg inhalation PRN PRN ASTHMA 07/27/21 12/29/24 History inhaler loratadine 10 mg tablet (Claritin) 10 mg PO PRN PRN ALLERGIES 07/2712/29/24 History clonidine HCl 0.2 mg tablet mg PO QDAY 11/28/24 12/29/24 Histo ry meloxicam 7.5 mg tablet 7.5 mg PO BID PRN pain 2 weeks #30 12/04/24 12/29/24 Rx tabs methylprednisolone 4 mg tablets in See Rx Instructions PO PER PKG D IR 12/24/24 12/29/24 Rx a dose pack #21 tabs PFSH Medical History Left rotator cuff tear Left shoulder pain Acute sinusitis, unspecified History of hiatal hernia History of edema Wears glasses Arthritis Anemia Gastric reflux Former smoker Asthma Chronic cough Gastroesophageal reflux disease Surgical History History of esophagogastroduodenoscopy (EGD) S/P endometrial ablation S/P tonsillectomy and adenoidectomy S/P tubal ligation S/P laparoscopic cholecystectomy S/P appendectomy Family History Brother Asthma CAD (coronary artery disease) CVA (cerebral vascular accident) Mother Thyroid disorder Daughter Seizures Social History Smoking Status: Former smoker alcohol intake: never HPI LEFT SHOULDER Details: This documentation accurately reflects the service provided and the decisions made by me, Dr. Ananda Xavier MD 12/29/24 1489. Part of today???s visit was documented by [ ], acting as scribe. SWETHA GERARD is a 44 year old F here today for FU L shoulder MRI. Supplemental Info [facility] Imaging Services [facility] [place] [address] Upper Ext Joint Only(Routine) MR#: [id number] Acct: [id number] Name: SWETHA GERARD Rep #: [id number] : 1980 F 44 From: Luis Rivera DO PCP: Dr. Mirta Jacobson MD Status: REG CLI Study: Upper Ext Joint Only(Routine) Date of Exam: 12/22/24 Exam# [id number] Ordering Dr: Ananda Xavier MD PROCEDURE: MRI left shoulder without IV contrast REASON FOR EXAM: Pain TECHNIQUE: Multisequence multiplanar MR images of the left shoulder were obtained without the administration of intravenous contrast. COMPARISON: None. FINDINGS 50% partial-thickness intrasubstance tear of the mid supraspinatus tendon at its critical zone measuring up to 6 mm in width which may also extend to the bursal surface. Mild superimposed supraspinatus tendinopathy. Infraspinatus and subscapularis tendons are intact. Mild teres minor muscle atrophy. Intact long head biceps tendon. Glenohumeral alignment is maintained. No joint effusion. No displaced labral tear or paralabral cysts. No focal chondral defects. Acromioclavicular joint alignment is maintained. No significant degenerative changes. Negative for fracture or marrow replacement. Small amount of fluid in the subacromial/subdeltoid bursa. MRI/Upper Ext Joint Only(Routine) IMPRESSION: 1. Partial thickness partial width partial-thickness tear of the supraspinatus tendon as above. 2. Small amount of fluid in the subacromial/subdeltoid bursa. 3. Mild teres minor muscle atrophy. Reading Location: [facility] I independently reviewed the imaging. Concur with radiologist report. Coding Level of Care Code Off vis,est,level 3 Diagnoses Left shoulder pain M25.512 Left rotator cuff tear M75.102 Assessment and Plan Assessment and Plan (1) Left shoulder pain: Status: Acute Plan: 44 yr F with L shoulder pain, small RC tear. Patient explained the pros and cons risks and benefits of nonoperative management versus surgery. The patient would like to go ahead with surgery in the form of left shoulder arthro (more content not included)... Normal [facility] No Panel InformationOrdered By: Marcus Del Rosario on 12-24-2024 Influenza Types A,B Rapid (Clinic) Negative [facility] Office Visit Reporton 2024 Office Visit Report [facility] [address] [place] [address] OFFICE VISIT Date of Service: 12/24/24 MR#: [id number] Acct: [id number] Patient: SWETHA GERARD Rep #: [id number] : 1980 Provider: EDWIN Chavarria Age/Sex: 44/F Location: [facility] Status: Signed with Addenda ADDENDUM by EDWIN Chavarria on 12/24/24 at 1116 HPI Details: SWETHA GERARD, is a 44 F who presents to the office today for Assessment and Plan Assessment and Plan (1) Acute bronchitis: Status: Acute Plan: Flu test is negative today. Orders: Orders POC FLU A B Today J02.9 - Acute pharyngitis, unspecified, R05.9 - Cough, unspecified Medications: New methylprednisolone PO PER PKG DIR 21 tabs 0RF azithromycin (Zithromax Z-Thien) take 500 mg today (day 1), then 250 mg for 4 days (days 2-5) PO 6 tabs 0RF 12/24/24 1116 Date Marcus Del Rosario cc: * Signed Intake Vital Signs 11/28/24 10:18 12/24/24 10:57 Height 1.73 m 1.73 m Weight: 108.409 kg 107.048 kg BMI 36.3 35.9 BP 103/70 Blood Pressure Location Lt brachial Position Sitting Pulse 60 Pulse Source Monitor Temp 98.7 F Temp Source Temporal Pulse Oximetry (%) 96 Intake Visit Reasons: CHEST CONGESTION/COUGH Chief Complaint: cough Allergies adhesive tape Allergy (Mild, Verified 12/24/24 10:58) PT UNSURE OF REACTION hydrocodone (From Vicodin) Allergy (Mild, Verified 12/24/24 10:58) Other Medications ???Medication ???Instructions ???Recorded ???Confirmed ???Type albuterol 90 mcg/actuation aerosol 90 mcg inhalation PRN PRN ASTHMA 07/27/21 12/24/24 History inhaler loratadine 10 mg tablet (Claritin) 10 mg PO PRN PRN ALLERGIES 07/2712/24/24 History clonidine HCl 0.2 mg tablet mg PO QDAY 11/28/24 12/24/24 Histo ry meloxicam 7.5 mg tablet 7.5 mg PO BID PRN pain 2 weeks #30 12/04/24 12/24/24 Rx tabs azithromycin 250 mg tablet See Rx Instructions PO .COMPLEX #6 12/24/24 12/24/24 Rx (Zithromax Z-Thien) tabs methylprednisolone 4 mg tablets in See Rx Instructions PO PER PKG D IR 12/24/24 12/24/24 Rx a dose pack #21 tabs PFSH Medical History Left shoulder pain Acute sinusitis, unspecified History of hiatal hernia History of edema Wears glasses Arthritis Anemia Gastric reflux Former smoker Asthma Chronic cough Gastroesophageal reflux disease Surgical History History of esophagogastroduodenoscopy (EGD) S/P endometrial ablation S/P tonsillectomy and adenoidectomy S/P tubal ligation S/P laparoscopic cholecystectomy S/P appendectomy Family History Brother Asthma CAD (coronary artery disease) CVA (cerebral vascular accident) Mother Thyroid disorder Daughter Seizures Social History Smoking Status: Former smoker alcohol intake: never HPI HPI Chief Complaint: cough Details: SWETHA GERARD, is a 44 F who presents to the office today for cough. Pt has had cough about 3 days, cough is productive. She is also SOB. She has asthma and has been using her inhaler which is helping somewhat. She has no body aches, fevers, chills and feels like otherwise does not feel ill. ROS Const Constitutional: No body ache, chills, fatigue or fever(s) ENT ENT: Positive for sore throat Resp Respiratory: Positive for cough and shortness of breath; No wheezing Endo Endocrine: No fatigue Aller/Imm Allergy/Immunologic: No wheezing Exam Const General: cooperative, healthy appearing, comfortable, no acute distress, well developed and well groomed Nutritional Appearance: average body habitus and well nourished Orientation: alert, awake and oriented x3 HENMT Head: normocephalic and atraumatic Resp Effort Inspection: normal respiratory effort, able to speak in complete sentences and symmetric chest movement Auscultation: Bilateral: Diminished Lung Sounds (throughout) and Rales (BL bases) Results POC FLU A B Office Flu A B Negative FLU A B Last Edit by Savana Collazo on 12/24/24 11:06 Coding Level of Care Code Off vis,est,level 3 Diagnoses Acute bronchitis J20.9 Assessment and Plan Assessment and Plan (1) Acute bronchitis: Status: Acute Plan: acute bronchitis in pt with asthma. minimal improvement with albuterol prn. on exam lungs very diminished and crackles in BL bases, SPo2 96%RA. start medrol dose pack and azithromycin. if no improvement 1 week follow up with pcp or if worsening go to the ER Orders: Orders POC FLU A B Today J02.9 - Acute pharyngitis, unspecified, R05.9 - Cough, unspecified Medications: New methylprednisolone PO PER PKG DI (more content not included)... Normal [facility] Upper Ext Joint Only(Routine )on 12-22-2024 Upper Ext Joint Only(Routine) [facility] Imaging Services [address] [place] [address] Upper Ext Joint Only(Routine) MR#: [id number] Acct: [id number] Name: SWETHA GERARD Rep #: [id number] : 1980 F 44 From: Luis Vega PCP: Dr. Mirta Jacobson MD Status: REG CLI Study: Upper Ext Joint Only(Routine) Date of Exam: 0 12/22/24 Exam# [id number] Ordering Dr: Ananda Xavier MD PROCEDURE: MRI left shoulder without IV contrast REASON FOR EXAM: Pain TECHNIQUE: Multisequence multiplanar MR images of the left shoulder were obtained without the administration of intravenous contrast. COMPARISON: None. FINDINGS 50% partial-thickness intrasubstance tear of the mid supraspinatus tendon at its critical zone measuring up to 6 mm in width which may also extend to the bursal surface. Mild superimposed supraspinatus tendinopathy. Infraspinatus and subscapularis tendons are intact. Mild teres minor muscle atrophy. Intact long head biceps tendon. Glenohumeral alignment is maintained. No joint effusion. No displaced labral tear or paralabral cysts. No focal chondral defects. Acromioclavicular joint alignment is maintained. No significant degenerative changes. Negative for fracture or marrow replacement. Small amount of fluid in the subacromial/subdeltoid bursa. MRI/Upper Ext Joint Only(Routine) IMPRESSION: 1. Partial thickness partial width partial-thickness tear of the supraspinatus tendon as above. 2. Small amount of fluid in the subacromial/subdeltoid bursa. 3. Mild teres minor muscle atrophy. Reading Location: [facility] CC: Dr. Mirta Jacobson MD; Dr. Ananda Xavier MD Slab Worker: Signed Normal [facility] Orthopedic Visit Reporton Orthopedic Visit Report [facility] [address] [place] [address] [address] [place] [address] OFFICE VISIT Date of Service: 11/28/24 MR#: [id number] Acct: [id number] Name: SWETHA GERARD Rep #: [id number] : 1980 Provider: Dr. Ananda de la vega MD Age/Sex: 44/F Location: [facility] [place] [place] Status: Signed Intake Vital Signs 06/09/24 15:44 11/28/24 10:18 Height 5 ft 8 in 5 ft 8 in Weight: 223 lb 239 lb BMI 33.9 36.3 BP 100/67 Blood Pressure Location Lt brachial Position Sitting Pulse 64 Pulse Source Monitor Temp 98.8 F Temp Source Temporal Pulse Oximetry (%) 99 Intake Visit Reasons: LEFT SHOULDER Chief Complaint: left shoulder Is patient in pain?: Yes (left shoulder) Pain scale (1-10): 6 Allergies adhesive tape Allergy (Mild, Verified 11/28/24 10:20) PT UNSURE OF REACTION hydrocodone (From Vicodin) Allergy (Mild, Verified 11/28/24 10:20) Other Medications ???Medication ???Instructions ???Recorded ???Confirmed ???Type albuterol 90 mcg/actuation aerosol 90 mcg inhalation PRN PRN ASTHMA 07/27/21 06/09/24 History inhaler loratadine 10 mg tablet (Claritin) 10 mg PO PRN PRN ALLERGIES 07/27/21 06/09/24 History clonidine HCl 0.2 mg tablet mg PO QDAY 11/28/24 11/28/24 History PFSH Medical History Left shoulder pain Acute sinusitis, unspecified History of hiatal hernia History of edema Wears glasses Arthritis Anemia Gastric reflux Former smoker Asthma Chronic cough Gastroesophageal reflux disease Surgical History History of esophagogastroduodenoscopy (EGD) S/P endometrial ablation S/P tonsillectomy and adenoidectomy S/P tubal ligation S/P laparoscopic cholecystectomy S/P appendectomy Family History Brother Asthma CAD (coronary artery disease) CVA (cerebral vascular accident) Mother Thyroid disorder Daughter Seizures Social History Smoking Status: Former smoker alcohol intake: never HPI LEFT SHOULDER Details: This documentation accurately reflects the service provided and the decisions made by , Dr. Ananda Xavier MD 11/28/24 0940. Part of today???s visit was documented by [ ], acting as scribe. SWETHA GERARD is a 44 year old F here today for left shoulder pain. 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 here with her . had 2 cortisone injections and there is lateral based pain. wakes up at night. had multiple rounds of PT and also does it at home. last injection lasted 3 weeks and the pain returned. Referral note states left shoulder pain had the subacromial cortisone injection which provided relief. Patient has had a return of the symptoms. Constant aching pain in the left shoulder worse with overhead movement. There is no numbness or tingling in the upper extremity. Her symptoms are moderate and worsening. Supplemental Info [facility] Imaging Services [address] [place] [address] Shoulder min 2 Views MR#: [id number] Acct: [id number] Name: SWETHA GERARD Rep #: [id number] : 1980 F 43 From: Yordan Cavazos MD PCP: Dr. Mirta Jacobson MD Status: [facility] Study: Shoulder min 2 Views Date of Exam: 11/22/23 Exam# [id number] Ordering Dr: Mirta Jacobson MD [id number] STUDY: X-RAY - LEFT SHOULDER REASON FOR EXAM: Female, 43 years old. Pain. TECHNIQUE: 4 views of the left shoulder. COMPARISON: None. FINDINGS: Normal glenohumeral articulation. Normal acromioclavicular joint. Normal acromion. Normal humeral head and visualized proximal humerus. The soft tissue structures are unremarkable. There is no demonstrated fracture. Normal visualized pulmonary apex. RAD/Shoulder min 2 Views IMPRESSION: Normal x-ray examination of the left shoulder. Electronically Signed: Yordan Cavazos MD at 14:14 EST , I independently reviewed the imaging. Concur with radiologist report. Coding Level of Care Code Off vis,new,level 3 Diagnoses Left shoulder pain M25.512 Assessment and Plan Assessment and Plan (1) Left shoulder pain: Status: Acute Plan: SWETHA GERARD is a 44 year old F here today for left shoulder pain. Differential diagnosis for this is broad includes bursitis tendinosis tendinitis rotator cuff tears or other proble (more content not included)... Normal [facility] Vitamin D,25 Hydroxyon 10-23 Vitamin D 25-OH 10.4 ng/mL Normal [facility] Comment on above: Order Comment: Order Date: 08/21/24Order Info: [id number] - VITD25 Result Comment: Serina min D 25(OH) Status Range Deficiency <20 ng/mL (50nmol/L) Insufficiency 20 - 30 ng/mL (50 - 75 nmol/L) Sufficiency 30 - 100 ng/mL (75 - 250 nmol/L) Toxicity >100 ng/mL (>250 nmol/L) Performed By: #### L 100.0100, L500.4100, L506.1000, L500.4050 ####[facility] [address] [place], [address] 75-QP-Joqsofr DOrdered By: Junaid Jacobson on 10-22-2024 Vitamin D 25-Hydroxy 10.4 ng/mL [facility] Comment on above: Vitamin D 25(OH) Sta tus Range Deficiency <20 ng/mL (50nmol/L) Insufficiency 20 - 30 ng/mL (50 - 75 nmol/L) Sufficiency 30 - 100 ng/mL (75 - 250 nmol/L) Toxicity >100 ng/mL (>250 nmol/L) Absolute neutrophil countOrd ered By: Mirta Jacobson on 10-22-2024 Neutrophils (Bld) [#/Vol] 4.6 10*3/uL 2.0-7.7 [facility] Albumin to globulin ratioOrd ered By: Mirta Jacobson on 10-22-2024 Albumin/Globulin [Mass ratio] 1.0 {ratio} 0.9-2.4 [facility] Basophil percentageOrdered B y: Mirta Jacobson on 10-22-2024 Basophils/100 WBC (Bld) 0.9 % 0-1 [facility] Bilirubin, totalOrdered By: Mirta Ochoajensen on 10-22-2024 Bilirubin [Mass/Vol] 0.40 mg/dL 0.20-1.00 [facility] Comment on above: For patients on eltr ombopag therapy, use of Dimension [place] TBIL is not recommended. Blood urea nitrogen (BUN)/cr eatinine ratioOrdered By: Mirta Jacobson on 10-22-2024 Urea nitrogen/Creatinine [Mass ratio] 14.2 mg/mg 10- [facility] CBC W/Diff, Automatedon 10-05 Absolute Lymph 1.35 X10 3/uL Normal 0.83-4.51 [facility] Comment on above: Order Comment: Order Date: 08/21/24Order Info: 018- - CBCD Performed By: #### L 100.0100, L500.4100, L506.1000, L500.4050 ####[facility] [address] [place], [address] Absolute Neut 4.6 X10 3/uL Normal 2.0-7.7 [facility] Comment on above: Order Comment: Order Date: 08/21/24Order Info: 018- - CBCD Performed By: #### L 100.0100, L500.4100, L506.1000, L500.4050 ####[facility] [address] [place], [address] Basophils/100 WBC (Bld) 0.9 % Normal 0-1 [facility] Comment on above: Order Comment: Order Date: 08/21/24Order Info: 0184-1 - CBCD Performed By: #### L 100.0100, L500.4100, L506.1000, L500.4050 ####[facility] [address] [place], [address] Eosinophils/100 WBC (Bld) 3.1 % Normal 0-5 [facility] Comment on above: Order Comment: Order Date: 08/21/24Order Info: 0184-1 - CBCD Performed By: #### L 100.0100, L500.4100, L506.1000, L500.4050 ####[facility] [address] [place], [address] Erythrocyte distribution width (RBC) [Ratio] 13.0 % Normal 11.6-14.6 [facility] Comment on above: Order Comment: Order Date: 08/21/24Order Info: 0184-1 - CBCD Performed By: #### L 100.0100, L500.4100, L506.1000, L500.4050 ####[facility] [address] [place], [address] Hematocrit (Bld) [Volume fraction] 39.9 % Normal 37-47 [facility] Comment on above: Order Comment: Order Date: 08/21/24Order Info: 0184-1 - CBCD Performed By: #### L 100.0100, L500.4100, L506.1000, L500.4050 ####[facility] [address] [place], [address] Hemoglobin (Bld) [Mass/Vol] 13.0 g/dL Normal 12.0-15.0 [facility] Comment on above: Order Comment: Order Date: 08/21/24Order Info: 0184-1 - CBCD Performed By: #### L 100.0100, L500.4100, L506.1000, L500.4050 ####[facility] [address] [place], [address] IG% 0.100 Normal 0.0-0.9 [facility] Comment on above: Order Comment: Order Date: 08/21/24Order Info: 0184-1 - CBCD Result Comment: IG% - Immature Granulocytes (promyelocytes, myelocytes and metamyelocytes) > 1% indicates that a LEFT SHIFT is Present. Performed By: #### L 100.0100, L500.4100, L506.1000, L500.4050 ####[facility] [address] [place], [address] Lymphocytes/100 WBC (Bld) 20.2 % Normal 19-41 [facility] Comment on above: Order Comment: Order Date: 08/21/24Order Info: 018-1 - CBCD Performed By: #### L 100.0100, L500.4100, L506.1000, L500.4050 ####[facility] [address] [place], [address] MCH (RBC) [Entitic mass] 29.0 pg Normal 27.0-32.0 [facility] Comment on above: Order Comment: Order Date: 08/21/24Order Info: 018-1 - CBCD Performed By: #### L 100.0100, L500.4100, L506.1000, L500.4050 ####[facility] [address] [place], [address] MCHC (RBC) [Mass/Vol] 32.6 g/dL Normal 32-36 [facility] Comment on above: Order Comment: Order Date: 08/21/24Order Info: 018-1 - CBCD Performed By: #### L 100.0100, L500.4100, L506.1000, L500.4050 ####[facility] [address] [place], [address] MCV (RBC) [Entitic vol] 89.1 fL Normal 81-99 [facility] Comment on above: Order Comment: Order Date: 08/21/24Order Info: 0184-1 - CBCD Performed By: #### L 100.0100, L500.4100, L506.1000, L500.4050 ####[facility] [address] [place], [address] Monocytes/100 WBC (Bld) 6.3 % Normal 0-10 [facility] Comment on above: Order Comment: Order Date: 08/21/24Order Info: 0184-1 - CBCD Performed By: #### L 100.0100, L500.4100, L506.1000, L500.4050 ####[facility] [address] [place], [address] Neutrophils/100 WBC (Bld) 69.4 % Normal 47-70 [facility] Comment on above: Order Comment: Order Date: 08/21/24Order Info: 0184-1 - CBCD Performed By: #### L 100.0100, L500.4100, L506.1000, L500.4050 ####[facility] [address] [place], [address] Nucleated RBC (Bld) [#/Vol] 0 10*3/uL Normal 0-5 [facility] Comment on above: Order Comment: Order Date: 08/21/24Order Info: 018-1 - CBCD Performed By: #### L 100.0100, L500.4100, L506.1000, L500.4050 ####[facility] [address] [place], [address] Platelet mean volume (Bld) [Entitic vol] 9.7 fL Normal 6.2-12.0 [facility] Comment on above: Order Comment: Order Date: 08/21/24Order Info: 0184-1 - CBCD Performed By: #### L 100.0100, L500.4100, L506.1000, L500.4050 ####[facility] [address] [place], [address] Platelets (Bld) [#/Vol] 232 10*3/uL Normal 150-450 [facility] Comment on above: Order Comment: Order Date: 08/21/24Order Info: 0184- - CBCD Performed By: #### L 100.0100, L500.4100, L506.1000, L500.4050 ####[facility] [address] [place], [address] RBC (Bld) [#/Vol] 4.48 10*6/uL Normal 4.2-5.4 [facility] Comment on above: Order Comment: Order Date: 08/21/24Order Info: 018- - CBCD Performed By: #### L 100.0100, L500.4100, L506.1000, L500.4050 ####[facility] [address] [place], [address] RDW SD 42.5 fl Normal 35.1-43.9 [facility] Comment on above: Order Comment: Order Date: 08/21/24Order Info: 018- - CBCD Performed By: #### L 100.0100, L500.4100, L506.1000, L500.4050 ####[facility] [address] [place], [address] WBC (Bld) [#/Vol] 6.7 10*3/uL Normal 4.4-11.0 [facility] Comment on above: Order Comment: Order Date: 08/21/24Order Info: 018- - CBCD Performed By: #### L 100.0100, L500.4100, L506.1000, L500.4050 ####[facility] [address] [place], [address] Carbon dioxide measurementOr dered By: Mirta Jacobson on 10-22-2024 CO2 [Moles/Vol] 25.0 mmol/L 21.0-32.0 [facility] Chloride measurementOrdered By: Mirta Jacobson on 10-22-2024 Chloride [Moles/Vol] 107 mmol/L 98-107 [facility] Comprehensive Metabolic Prof ilon 10-22-2024 Albumin [Mass/Vol] 3.5 g/dL Normal 3.2-5.0 [facility] Comment on above: Order Comment: Order Date: 08/21/24Order Info: [id number] - CMPOrder Info: [id number] - LIPID Performed By: #### L 100.0100, L500.4100, L506.1000, L500.4050 ####[facility] [address] [place], [address] Albumin/Globulin [Mass ratio] 1.0 {ratio} Normal 0.9-2.4 [facility] Comment on above: Order Comment: Order Date: 08/21/24Order Info: [id number] - CMPOrder Info: [id number] - LIPID Performed By: #### L 100.0100, L500.4100, L506.1000, L500.4050 ####[facility] [address] [place], [address] ALK P 49 U/L Normal 45-117 [facility] Comment on above: Order Comment: Order Date: 08/21/24Order Info: [id number] - CMPOrder Info: [id number] - LIPID Performed By: #### L 100.0100, L500.4100, L506.1000, L500.4050 ####[facility] [address] [place], [address] ALT [Catalytic activity/Vol] 25 U/L Normal 13-56 [facility] Comment on above: Order Comment: Order Date: 08/21/24Order Info: [id number] - CMPOrder Info: [id number] - LIPID Performed By: #### L 100.0100, L500.4100, L506.1000, L500.4050 ####[facility] [address] [place], [address] AST [Catalytic activity/Vol] 8 U/L Low 15-37 [facility] Comment on above: Order Comment: Order Date: 08/21/24Order Info: [id number] - CMPOrder Info: [id number] - LIPID Performed By: #### L 100.0100, L500.4100, L506.1000, L500.4050 ####[facility] [address] [place], [address] Bilirubin [Mass/Vol] 0.40 mg/dL Normal 0.20-1.00 [facility] Comment on above: Order Comment: Order Date: 08/21/24Order Info: 07-1 - CMPOrder Info: [id number] - LIPID Result Comment: For patients on eltrombopag therapy, use of Dimension [place] TBIL is not recommended. Performed By: #### L 100.0100, L500.4100, L506.1000, L500.4050 ####[facility] [address] [place], [address] BUN/CRE 14.2 RATIO Normal 10-20 [facility] Comment on above: Order Comment: Order Date: 08/21/24Order Info: [id number] - CMPOrder Info: [id number] - LIPID Performed By: #### L 100.0100, L500.4100, L506.1000, L500.4050 ####[facility] [address] [place], [address] CA,Total 9.2 mg/dL Normal 8.5-10.1 [facility] Comment on above: Order Comment: Order Date: 08/21/24Order Info: [id number] - CMPOrder Info: [id number] - LIPID Performed By: #### L 100.0100, L500.4100, L506.1000, L500.4050 ####[facility] [address] [place], [address] Chloride [Moles/Vol] 107 mmol/L Normal 98-107 [facility] Comment on above: Order Comment: Order Date: 08/21/24Order Info: [id number] - CMPOrder Info: [id number] - LIPID Performed By: #### L 100.0100, L500.4100, L506.1000, L500.4050 ####[facility] [address] [place], [address] CO2 [Moles/Vol] 25.0 mmol/L Normal 21.0-32.0 [facility] Comment on above: Order Comment: Order Date: 08/21/24Order Info: [id number] - CMPOrder Info: [id number] - LIPID Performed By: #### L 100.0100, L500.4100, L506.1000, L500.4050 ####[facility] [address] [place], [address] Creatinine [Mass/Vol] 0.77 mg/dL Normal 0.55-1.02 [facility] Comment on above: Order Comment: Order Date: 08/21/24Order Info: 07- - CMPOrder Info: [id number] - LIPID Result Comment: The validity of the calculated GFR GFRAA in patients over 70 years has not been determined. Clinical correlation is essential. Performed By: #### L 100.0100, L500.4100, L506.1000, L500.4050 ####[facility] [address] [place], [address] EST GFR - AA 104 mL/min Normal >60 [facility] Comment on above: Order Comment: Order Date: 08/21/24Order Info: 07- - CMPOrder Info: [id number] - LIPID Result Comment: Afri can [place] GFR Calc Performed By: #### L 100.0100, L500.4100, L506.1000, L500.4050 ####[facility] [address] [place], [address] GAP 5 Normal 5-15 [facility] Comment on above: Order Comment: Order Date: 08/21/24Order Info: [id number] - CMPOrder Info: [id number] - LIPID Performed By: #### L 100.0100, L500.4100, L506.1000, L500.4050 ####[facility] [address] [place], [address] GFR/1.73 sq M.predicted among non-blacks MDRD (S/P/Bld) [Vol rate/Area] 86 mL/min/{1.73_m2} Normal >60 [facility] Comment on above: Order Comment: Order Date: 08/21/24Order Info: [id number] - CMPOrder Info: [id number] - LIPID Result Comment: Non- GFR Calc Performed By: #### L 100.0100, L500.4100, L506.1000, L500.4050 ####[facility] [address] [place], [address] Globulin (S) [Mass/Vol] 3.4 g/dL Normal 2.2-4.2 [facility] Comment on above: Order Comment: Order Date: 08/21/24Order Info: [id number] - CMPOrder Info: [id number] - LIPID Performed By: #### L 100.0100, L500.4100, L506.1000, L500.4050 ####[facility] [address] [place], [address] Glucose [Mass/Vol] 106 mg/dL Normal 74-106 [facility] Comment on above: Order Comment: Order Date: 08/21/24Order Info: [id number] - CMPOrder Info: [id number] - LIPID Result Comment: Fast ing Glucose result from 100 to 125 mg/dL suggests IMPAIRED HOMEOSTASIS per A.D.A. criteria. Performed By: #### L 100.0100, L500.4100, L506.1000, L500.4050 ####[facility] [address] [place], [address] Potassium [Moles/Vol] 4.4 mmol/L Normal 3.5-5.1 [facility] Comment on above: Order Comment: Order Date: 08/21/24Order Info: [id number] - CMPOrder Info: [id number] - LIPID Performed By: #### L 100.0100, L500.4100, L506.1000, L500.4050 ####[facility] [address] [place], [address] Sodium [Moles/Vol] 137 mmol/L Normal 136-145 [facility] Comment on above: Order Comment: Order Date: 08/21/24Order Info: [id number] - CMPOrder Info: [id number] - LIPID Performed By: #### L 100.0100, L500.4100, L506.1000, L500.4050 ####[facility] [address] [place], [address] T PROT 6.9 g/dL Normal 6.4-8.2 [facility] Comment on above: Order Comment: Order Date: 08/21/24Order Info: [id number] - CMPOrder Info: [id number] - LIPID Performed By: #### L 100.0100, L500.4100, L506.1000, L500.4050 ####[facility] [address] [place], [address] Urea nitrogen [Mass/Vol] 11 mg/dL Normal 7-18 [facility] Comment on above: Order Comment: Order Date: 08/21/24Order Info: [id number] - CMPOrder Info: [id number] - LIPID Performed By: #### L 100.0100, L500.4100, L506.1000, L500.4050 ####[facility] [address] [place], [address] Eosinophil percentageOrdered By: Mirta Jacobson on 10-22-2024 Eosinophils/100 WBC (Bld) 3.1 % 0-5 [facility] Erythrocyte distribution wid th (RBC) [Ratio]Ordered By: Mirta Jacobson on 10-22-2024 Erythrocyte distribution width (RBC) [Entitic vol] 42.5 fL 35.1-43.9 [facility] Erythrocyte distribution wid th ratioOrdered By: Mirta Jacobson on 10-22-2024 Erythrocyte distribution width (RBC) [Ratio] 13.0 % 11.6-14.6 [facility] Estimated glomerular filtrat ion rate (GFR) AmericanOrdered By: Mirta Jacobson on 10-22-2024 Estimated GFR (MDRD) Amer 104 mL/min >60 [facility] Comment on above: GFR Calc Glomerular filtration rate ( GFR) estimationOrdered By: Mirta Jacobson on 10-22-2024 Estimated GFR (MDRD) Non-Af Amer 86 mL/min >60 [facility] Comment on above: Non- GFR Calc Glucose measurementOrdered B y: Mirta Jacobson on 10-22-2024 Glucose [Mass/Vol] 106 mg/dL 74-106 [facility] Comment on above: Fasting Glucose resu lt from 100 to 125 mg/dL suggests IMPAIRED HOMEOSTASIS per A.D.A. criteria. Hematocrit Auto (Bld) [Volum e fraction]Ordered By: Mirta Jacobson on 10-22-2024 Hematocrit (Bld) [Volume fraction] 39.9 % 37-47 [facility] Hemoglobin A1con 10-22-2024 HbA1c (Bld) [Mass fraction] 5.0 % Normal 3.8-5.6 [facility] Comment on above: Order Comment: DARRIN Fallon ADD A1C TO BLOOD DRAWN THIS AM PER Result Comment: Norm al < 5.7 % Prediabetic 5.7 - 6.4 % Diabetic >or= 6.5 % Please note range changes. Performed By: #### L 139.5273 #### [facility] [address] [place], [place], [id number] Hemoglobin measurementOrdere d By: Mirta Jacobson on 10-22-2024 Hemoglobin (Bld) [Mass/Vol] 13.0 g/dL 12.0-15.0 [facility] High density lipoprotein (HD L) measurementOrdered By: Mirta Jacobson on 10-22-2024 Cholesterol in HDL [Mass/Vol] 66 mg/dL >40 [facility] Comment on above: The drugs N-Acetylcy steine and Metamizole may falsely depress this assay. Reference Range HDL <40 mg/dL Low HDL Cholesterol HDL >or= 60 mg/dL High HDL Cholesterol Immature granulocytes/100 WB C Auto (Bld)Ordered By: Mirta Jacobson on 10-22-2024 Immature granulocytes/100 WBC (Bld) 0.100 % 0.0-0.9 [facility] Comment on above: IG% - Immature Granu locytes (promyelocytes, myelocytes and metamyelocytes) > 1% indicates that a LEFT SHIFT is Present. Laboratory - Chemistry and C hemistry - challengeOrdered By: Mirta Jacobson on 10-22-2024 AST [Catalytic activity/Vol] 8 U/L Low 15-37 [facility] Lipid Profileon 10-22-2024 Cholesterol [Mass/Vol] 207 mg/dL High 200 [facility] Comment on above: Order Comment: Order Date: 08/21/24Order Info: [id number] - CMPOrder Info: [id number] - LIPID Result Comment: <200 mg/dL Desirable 200-240 mg/dL Borderline >240 mg/dL High Risk Performed By: #### L 100.0100, L500.4100, L506.1000, L500.4050 ####[facility] [address] [place], [address] Cholesterol in HDL [Mass/Vol] 66 mg/dL Normal [facility] Comment on above: Order Comment: Order Date: 08/21/24Order Info: [id number] - CMPOrder Info: [id number] - LIPID Result Comment: The drugs N-Acetylcysteine and Metamizole may falsely depress this assay. Reference Range HDL <40 mg/dL Low HDL Cholesterol HDL >or= 60 mg/dL High HDL Cholesterol Performed By: #### L 100.0100, L500.4100, L506.1000, L500.4050 ####[facility] [address] [place], [address] Cholesterol in LDL [Mass/Vol] 115 mg/dL Normal 0-130 [facility] Comment on above: Order Comment: Order Date: 08/21/24Order Info: [id number] - CMPOrder Info: [id number] - LIPID Performed By: #### L 100.0100, L500.4100, L506.1000, L500.4050 ####[facility] [address] [place], [address] Cholesterol in VLDL [Mass/Vol] 26 mg/dL Normal 5-40 [facility] Comment on above: Order Comment: Order Date: 08/21/24Order Info: [id number] - CMPOrder Info: [id number] - LIPID Performed By: #### L 100.0100, L500.4100, L506.1000, L500.4050 ####[facility] [address] [place], [address] Triglyceride [Mass/Vol] 132 mg/dL Normal [facility] Comment on above: Order Comment: Order Date: 08/21/24Order Info: [id number] - CMPOrder Info: [id number] - LIPID Result Comment: The drugs N-Acetylcysteine and Metamizole may falsely depress this assay. Serum Triglycerides Reference Interval Normal <150 mg/dL Borderline high 150 - 199 mg/dL High 200 - 499 mg/dL Very High > or = 500 mg/dL Performed By: #### L 100.0100, L500.4100, L506.1000, L500.4050 ####[facility] [address] [place], [address] Low density lipoprotein (LDL ) cholesterol measurementOrdered By: Mirta Jacobson on 10-22-2024 Cholesterol in LDL [Mass/Vol] 115 mg/dL 0-130 [facility] Lymphocytes Auto (Unsp spec) [#/Vol]Ordered By: Mirta Jacobson on 10-22-2024 Lymphocytes (Bld) [#/Vol] 1.35 10*3/uL 0.83-4.51 [facility] Lymphocytes/100 WBC Auto (Un sp spec)Ordered By: Mirta Jacobson on 10-22-2024 Lymphocytes/100 WBC (Bld) 20.2 % 19-41 [facility] MCV (mean corpuscular volume ) determinationOrdered By: Mirta Jacobson on 10-22-2024 MCV (RBC) [Entitic vol] 89.1 fL 81-99 [facility] Mean corpuscular hemoglobin (MCH) determinationOrdered By: Mirta Jacobson on 10-22-2024 MCH (RBC) [Entitic mass] 29.0 pg 27.0-32.0 [facility] Mean corpuscular hemoglobin concentration (MCHC) determinationOrdered By: Mirta Jacobson on 10-22-2024 MCHC (RBC) [Mass/Vol] 32.6 g/dL 32-36 [facility] Mean platelet volume determi nationOrdered By: Mirta Jacobson on 10-22-2024 Platelet mean volume (Bld) [Entitic vol] 9.7 fL 6.2-12.0 [facility] Monocyte percentageOrdered B y: Mirta Jacobson on 10-22-2024 Monocytes/100 WBC (Bld) 6.3 % 0-10 [facility] Neutrophil percentageOrdered By: Mirta Jacobson on 10-22-2024 Neutrophils/100 WBC (Bld) 69.4 % 47-70 [facility] Nucleated red blood cell per centageOrdered By: Mirta Jacobson on 10-22-2024 Nucleated RBC/100 WBC (Bld) [Ratio] 0 % 0-5 [facility] Platelet countOrdered By: Gabby Jacobson on 10-22-2024 Platelets (Bld) [#/Vol] 232 10*3/uL 150-450 [facility] Potassium measurementOrdered By: Mirta Jacobson on 10-22-2024 Potassium [Moles/Vol] 4.4 mmol/L 3.5-5.1 [facility] RBC Auto (Bld) [#/Vol]Ordere d By: Mirta Jacobson on 10-22-2024 RBC (Bld) [#/Vol] 4.48 10*6/uL 4.2-5.4 [facility] Serum anion gap measurementO rdered By: Mirta Jacobson on 10-22-2024 Anion gap [Moles/Vol] 5 mmol/L 5-15 [facility] Serum globulin measurementOr dered By: Mirta Jacobson on 10-22-2024 Globulin (S) [Mass/Vol] 3.4 g/dL 2.2-4.2 [facility] Serum or plasma alanine kohler otransferase (ALT) measurementOrdered By: Mirta Jacobson on 10-22-2024 ALT [Catalytic activity/Vol] 25 U/L 13-56 [facility] Serum or plasma albumin felix urement (mass/volume)Ordered By: Mirta Jacobson on 10-22-2024 Albumin [Mass/Vol] 3.5 g/dL 3.2-5.0 [facility] Serum or plasma alkaline myra sphatase measurementOrdered By: Mirta Jacobson on 10-22-2024 ALP [Catalytic activity/Vol] 49 U/L 45-117 [facility] Serum or plasma calcium felix urement (mass/volume)Ordered By: Mirta Jacobson on 10-22-2024 Calcium [Mass/Vol] 9.2 mg/dL 8.5-10.1 [facility] Serum or plasma cholesterol measurement (mass/volume)Ordered By: Mirta aJcobson on 10-22-2024 Cholesterol [Mass/Vol] 207 mg/dL High <200 [facility] Comment on above: <200 mg/dL Desirable 200-240 mg/dL Borderline >240 mg/dL High Risk Serum or plasma creatinine m easurement (mass/volume)Ordered By: Mirta Jacobson on 10-22-2024 Creatinine [Mass/Vol] 0.77 mg/dL 0.55-1.02 [facility] Comment on above: The validity of the calculated GFR & GFRAA in patients over 70 years has not been determined. Clinical correlation is essential. Serum or plasma urea nitroge n measurement (mass/volume)Ordered By: Mirta Jacobson on 10-22-2024 Urea nitrogen [Mass/Vol] 11 mg/dL 718 [facility] Sodium levelOrdered By: Mirta Jacobson on 10-22-2024 Sodium [Moles/Vol] 137 mmol/L 136-145 [facility] Total proteinOrdered By: Tommy Jacobson on 10-22-2024 Protein [Mass/Vol] 6.9 g/dL 6.4-8.2 [facility] Triglycerides measurementOrd ered By: Mirta Jacobson on 10-22-2024 Triglyceride [Mass/Vol] 132 mg/dL <199 [facility] Comment on above: The drugs N-Acetylcy steine and Metamizole may falsely depress this assay.Serum Triglycerides Reference Interval Normal <150 mg/dL Borderline high 150 - 199 mg/dL High 200 - 499 mg/dL Very High > or = 500 mg/dL Very low density lipoprotein (VLDL) cholesterol measurementOrdered By: Mirta Jacobson on 10-22-2024 VLDL Cholesterol 26 mg/dL 5-40 [facility] White blood cell (WBC) count Ordered By: Mirta Jacobson on 10-22-2024 WBC (Bld) [#/Vol] 6.7 10*3/uL 4.4-11.0 [facility] Hemoglobin A1c percentageOrd ered By: Mirta Jacobson on 10-21-2024 HbA1c (Bld) [Mass fraction] 5.0 % 3.8-5.6 [facility] Comment on above: Normal < 5.7 % Predi abetic 5.7 - 6.4 % Diabetic >or= 6.5 % Please note range changes. No Panel InformationOrdered By: Mirta Jacobson on 11-22-2023 Follicle Stimulating Hormone 7.4 mIU/mL [facility] Comment on above: NORMAL REFERENCE RAN [employer] [facility] [facility] FEMALE FOLLICULAR 2.3 - 12.6 mIU/mL MID-CYCLE PEAK 5.2 - 17.5 mIU/mL LUTEAL 1.7 - 12.9 mIU/mL POST-MENOPAUSAL ON MHT 5.9 - 72.8 mIU/mL NOT ON MHT 12.7 - 132.2 mlU/mL MALE 0.7 - 10.8 mIU/mL Luteinizing Hormone 5.3 mIU/mL [facility] Comment on above: NORMAL REFERENCE RAN GES FEMALE FOLLICULAR 1.9 - 26.2 mIU/mL MID-CYCLE PEAK 22.8 - 76.1 mIU/mL LUTEAL 0.6 - 16.6 mIU/mL POST-MENOPAUSAL ON MHT 1.1 - 52.4 mIU/mL NOT ON MHT 8.6 - 61.8 mIU/mL MALE 1.2 - 10.6 mIU/mL Laboratory - Chemistry and C hemistry - challengeOrdered By: Dr. Jacobson on 08-11-2022 Cobalamin (Vitamin B12) [Mass/Vol] 340 pg/mL 211-911 [facility] No Panel InformationOrdered By: Dr. Jacobson on 08-11-2022 Vitamin B6 Level 5.8 ug/L 3.4-65.2 [facility] Comment on above: Deficiency: <3.4 Mar ginal: 3.4 - 5.1 Adequate: >5.1 Whole Blood Vitamin B1 Level 90.9 nmol/L 66.5-200.0 [facility] Comment on above: Performed at: - [address] [id number] Director: Ambrosio Mar MD, Phone: [phone] Absolute lymphocyte counton 07-14-2022 Lymphocytes Auto (Unsp spec) [#/Vol] 1.76 10*3/uL 0.83-4.51 [facility] Work Phone: Basophil percentageon 2021 Basophil percentage 0 SEEN /hpf 0-5 [facility] Work Phone: Basophils/100 WBC (Bld) 0.7 % 0-1 [facility] Work Phone: Bilirubin [Mass/Vol] 0.50 mg/dL 0.20-1.00 [facility] Work Phone: Comment on above: For patients on eltr ombopag therapy, use of Dimension [place] TBIL is not recommended. Chloride [Moles/Vol] 105 mmol/L 98-107 [facility] Work Phone: [phone] Eosinophils/100 WBC (Bld) 3.1 % 0-5 [facility] Work Phone: Glucose [Mass/Vol] 93 mg/dL 74-106 [facility] Work Phone: Neutrophils (Bld) [#/Vol] 5.6 10*3/uL 2.0-7.7 [facility] Work Phone: Neutrophils/100 WBC (Bld) 68.5 % 47-70 [facility] Work Phone: [phone] Potassium [Moles/Vol] 3.8 mmol/L 3.5-5.1 [facility] Work Phone: Protein [Mass/Vol] 7.6 g/dL 6.4-8.2 [facility] Work Phone: Sodium [Moles/Vol] 140 mmol/L 136-145 [facility] Work Phone: WBC (Bld) [#/Vol] 8.2 10*3/uL 4.4-11.0 [facility] Work Phone: Beta hCG serum qualon 2021 Beta HCG ( test) Ql Negative [facility] Work Phone: Bilirubin Test strip Ql (U)o n 07-14-2022 Bilirubin Ql (U) Negative Negative [facility] Work Phone: Blood erythrocytes count (nu mber/volume)on 07-14-2022 RBC (Bld) [#/Vol] 4.72 10*6/uL 4.2-5.4 [facility] Work Phone: Blood hemoglobin measurement (mass/volume)on 07-14-2022 Hemoglobin (Bld) [Mass/Vol] 14.0 g/dL 12.0-15.0 [facility] Work Phone: Blood lymphocytes/100 leukoc yteson 07-14-2022 Lymphocytes/100 WBC (Bld) 21.6 % 19-41 [facility] Work Phone: Blood monocytes/100 leukocyt eson 07-14-2022 Monocytes/100 WBC (Bld) 5.6 % 0-10 [facility] Work Phone: Blood platelet mean volumeon 07-14-2022 Platelet mean volume (Bld) [Entitic vol] 9.4 fL 6.2-12.0 [facility] Work Phone: Determination of erythrocyte mean corpuscular volume (MCV)on 07-14-2022 MCV (RBC) [Entitic vol] 89.0 fL 81-99 [facility] Work Phone: Hematocrit Auto (Bld) [Volum e fraction]on 07-14-2022 Hematocrit (Bld) [Volume fraction] 42.0 % 37-47 [facility] Work Phone: Ketones Test strip Ql (U)on 07-14-2022 Ketones Ql (U) Negative Negative [facility] Work Phone: Laboratory - Chemistry and C hemistry - challengeon 07-14-2022 ALP [Catalytic activity/Vol] 55 U/L 45-117 [facility] Work Phone: ALT [Catalytic activity/Vol] 28 U/L 13-56 [facility] Work Phone: CO2 [Moles/Vol] 30.0 mmol/L 21.0-32.0 [facility] Work Phone: Globulin (S) [Mass/Vol] 3.7 g/dL 2.2-4.2 [facility] Work Phone: Urea nitrogen/Creatinine [Mass ratio] 11.1 mg/mg 10-20 [facility] Work Phone: Laboratory - Hematology and Cell countson 07-14-2022 Erythrocyte distribution width (RBC) [Entitic vol] 41.3 fL 35.1-43.9 [facility] Work Phone: Erythrocyte distribution width (RBC) [Ratio] 12.6 % 11.6-14.6 [facility] Work Phone: Immature granulocytes/100 WBC (Bld) 0.500 % 0.0-0.9 [facility] Work Phone: Comment on above: IG% - Immature Granu locytes (promyelocytes, myelocytes and metamyelocytes) > 1% indicates that a LEFT SHIFT is Present. MCH (RBC) [Entitic mass] 29.7 pg 27.0-32.0 [facility] Work Phone: Nucleated RBC/100 WBC (Bld) [Ratio] 0 % 0-5 [facility] Work Phone: MCHC Auto (RBC) [Mass/Vol]on 07-14-2022 MCHC (RBC) [Mass/Vol] 33.3 g/dL 32-[facility]: Mucus LM Ql (Urine sed)on Mucus Ql (Urine sed) 0 SEEN /hpf [facility] Work Phone: Nitrite Test strip Ql (U)on 07-14-2022 Nitrite Ql (U) Negative Negative [facility] Work Phone: No Panel Informationon 07-14 Estimated Creatinine Clearance Calc 90.34 ml/min [facility] Work Phone: Estimated GFR (MDRD) Amer 99 mL/min >60 [facility] Work Phone: Comment on above: GFR Calc Estimated GFR (MDRD) Non-Af Amer 82 mL/min >60 [facility] Work Phone: Comment on above: Non- GFR Calc Platelets bldon 07-14-2022 Platelets (Bld) [#/Vol] 254 10*3/uL 150-450 [facility] Work Phone: Protein Test strip Ql (U)on 07-14-2022 Protein Ql (U) Negative Negative [facility] Work Phone: Serum or plasma albumin felix urement (mass/volume)on 07-14-2022 Albumin [Mass/Vol] 3.9 g/dL 3.2-5.0 [facility] Work Phone: Serum or plasma albumin/glob ulin mass ratioon 07-14-2022 Albumin/Globulin [Mass ratio] 1.1 {ratio} 0.9-2.4 [facility] Work Phone: Serum or plasma calcium felix urement (mass/volume)on 07-14-2022 Calcium [Mass/Vol] 9.5 mg/dL 8.5-10.1 [facility] Work Phone: Serum or plasma creatinine m easurement (mass/volume)on 07-14-2022 Creatinine [Mass/Vol] 0.81 mg/dL 0.55-1.02 [facility] Work Phone: Comment on above: The validity of the calculated GFR & GFRAA in patients over 70 years has not been determined. Clinical correlation is essential. Serum or plasma urea nitroge n measurement (mass/volume)on 07-14-2022 Urea nitrogen [Mass/Vol] 9 mg/dL 7-18 [facility] Work Phone: Squamous epithelial cells de tection in urine sediment by light microscopyon 07-14-2022 Epithelial cells.squamous LM Ql (Urine sed) 0-5 SEEN /hpf 5-10 [facility] Work Phone: Thin prep Papanicolaou smear with manual screeningon 07-14-2022 Thin prep Papanicolaou smear with manual screening 13 U/L 15-37 [facility] Work Phone: Thin prep Papanicolaou smear with manual screening 5 5-15 [facility] Work Phone: Urine blood detectionon RBC Ql (U) 10 /ul Negative [facility] Work Phone: RBC Ql (U) 0-5 SEEN /hpf 0-5 [facility] Work Phone: Urine clarityon 07-14-2022 Clarity (U) Sl. Cloudy Clear [facility] Work Phone: Urine color determinationon 07-14-2022 Color (U) Straw Yellow [facility] Work Phone: Urine glucose detectionon Glucose Ql (U) Normal mg/dl Normal [facility] Work Phone: Urine leukocyte esterase det ection by dipstickon 07-14-2022 Leukocyte esterase Test strip Ql (U) Negative Negative [facility] Work Phone: Urine pHon 07-14-2022 pH (U) 7.0 [pH] 5.0 - 8.0 [facility] Work Phone: Urine sediment bacteria coun t by microscopy (number/high power field)on 07-14-2022 Bacteria LM.HPF (Urine sed) [#/Area] 0 /[HPF] None Seen [facility] Work Phone: Urine specific gravity measu rementon 07-14-2022 Specific gravity (U) [Rel density] 1.005 1.002-1.03 0 [facility] Work Phone: Urobilinogen Auto test strip Ql (U)on 07-14-2022 Urobilinogen Ql (U) Normal mg/dl Normal [facility] Work Phone: Basophil percentageon 2020 Bilirubin [Mass/Vol] 0.40 mg/dL 0.20-1.00 [facility] Work Phone: Comment on above: For patients on eltr ombopag therapy, use of Dimension [place] TBIL is not recommended. Chloride [Moles/Vol] 108 mmol/L 98-107 [facility] Work Phone: Glucose [Mass/Vol] 86 mg/dL 74-106 [facility] Work Phone: Comment on above: Please note revised GLUCOSE reference range effective 2017. Potassium [Moles/Vol] 4.1 mmol/L 3.5-5.1 [facility] Work Phone: Protein [Mass/Vol] 7.1 g/dL 6.4-8.2 [facility] Work Phone: Sodium [Moles/Vol] 139 mmol/L 136-145 [facility] Work Phone: Laboratory - Chemistry and C hemistry - challengeon 11-03-2021 ALP [Catalytic activity/Vol] 51 U/L 45-117 [facility] Work Phone: ALT [Catalytic activity/Vol] 30 U/L 13-56 [facility] Work Phone: CO2 [Moles/Vol] 26.0 mmol/L 21.0-32.0 [facility] Work Phone: Globulin (S) [Mass/Vol] 3.6 g/dL 2.2-4.2 [facility] Work Phone: Urea nitrogen/Creatinine [Mass ratio] 13.4 mg/mg 10-20 [facility] Work Phone: No Panel Informationon 11-03 Estimated GFR (MDRD) Amer 123 mL/min >60 [facility] Work Phone: Comment on above: GFR Calc Estimated GFR (MDRD) Non-Af Amer 102 mL/min >60 [facility] Work Phone: Comment on above: Non- GFR Calc Vitamin D 25-Hydroxy 26.4 ng/mL [facility] Work Phone: Comment on above: Vitamin D 25(OH) Sta tus Range Deficiency <20 ng/mL (50nmol/L) Insufficiency 20 - 30 ng/mL (50 - 75 nmol/L) Sufficiency 30 - 100 ng/mL (75 - 250 nmol/L) Toxicity >100 ng/mL (>250 nmol/L) Serum or plasma albumin felix urement (mass/volume)on 11-03-2021 Albumin [Mass/Vol] 3.5 g/dL 3.2-5.0 [facility] Work Phone: Serum or plasma albumin/glob ulin mass ratioon 11-03-2021 Albumin/Globulin [Mass ratio] 1.0 {ratio} 0.9-2.4 [facility] Work Phone: Serum or plasma calcium felix urement (mass/volume)on 11-03-2021 Calcium [Mass/Vol] 9.0 mg/dL 8.5-10.1 [facility] Work Phone: Serum or plasma creatinine m easurement (mass/volume)on 11-03-2021 Creatinine [Mass/Vol] 0.67 mg/dL 0.55-1.02 [facility] Work Phone: Comment on above: The validity of the calculated GFR & GFRAA in patients over 70 years has not been determined. Clinical correlation is essential. Serum or plasma urea nitroge n measurement (mass/volume)on 11-03-2021 Urea nitrogen [Mass/Vol] 9 mg/dL 7-18 [facility] Work Phone: Thin prep Papanicolaou smear with manual screeningon 11-03-2021 Thin prep Papanicolaou smear with manual screening 17 U/L 15-37 [facility] Work Phone: Thin prep Papanicolaou smear with manual screening 5 5-15 [facility] Work Phone: Acid Fast Stainon 05-15-2017 Acid Fast Stain 17-BENNETT 8277 #3MRN#: [id number] Name: SWETHA GERARD Mallika Craft: 1980 Sex: Marroquin# Loc [facility] Site [id number] TIS Biopsy appendix 05/15/17NTIBIOTICS AT COL.:NORRIS HANSON[address], [place] [id number] ------ C O M M E N T S 17-BENNETT 8277 #3Acid Fast Stain FINALThe tissue acid fast stain was ordered by a pathologistto assist in diagnosis. For final report and significance,refer to the anatomical pathology report.Direct Acid Fast Smear from Specimen: NegativeKEY FOR RESULTS: - NEW RESULTATT.PHYS.: NORRIS HANSON LOCATION: [id number]--YVH.DATE: 05/10/17 PATIENT : SWETHA GERARD RMICROBIOLOGYPRINTED: 05/16/17 13:15 REGULAR 2 PAGE: 2 of 1 1 Normal [facility] Comment on above: Performed By: #### A FS ####[facility], [address] [place] [address] Pathology Surgicalon 017 Pathology Surgical SEE BELOW [facility] Department of Pathology [address] [place] [address] NAME: SWETHA GERARD 1980 ACCESSION NO: [id number]:APPENDI X, APPENDECTOMY SPECIMEN: - 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 - SOME POLARIZABLE FOREIGN MATERIAL IS IDENTIFIED WITHIN GIANT CELLS. - SILVER STAINS ARE NEGATIVE FOR FUNGAL MICRO-ORGANISMS, ACID FASTSTAINS WILL BE REPORTED SEPARATELY.CLINICAL INFORMATION: ABDOMINAL PAINPROCEDURE:SPECIMEN: APPENDIX [facility]# [id number] DESCRIPTION:Received labeled: Swetha GerardReceived in formalin is a 6 x 2.3 cm. appendix with a small amount ofattached km-appendiceal fat. The serosa is villafuerte to hemorrhagic andsmooth to rough with focal fibrinous exudate. Sectioning shows apinpoint lumen and a wall that ranges up to 0.2 cm. in thickness.Also received is a 9.5 x 4.5 x 2 cm. portion of omentum. The cutsurfaces are focally firm extending over an area measuring up to 4 cm. Post Office Markup Clerk section(s) in three cassettes. Dictated by NancyMICROSCOPIC DESCRIPTION:Slides Reviewed.CPT: 42588 / [id number] LEXY RIVERA MD, PATHOLOGIST Page 1 of 1 [facility] Comment on above: Performed By: #### S UR ####[facility], [address] [place] [address] Vital Signs Date Time Vital Sign Value Performing Clinician Kirk carrasco 02-20-2025 10:21-0400 Body height 175.[address] Mirta Jacobson MD Work Phone: [facility] 02-20-2025 10:21-0400 Body mass index (BMI) [Ratio] 34 kg/m2 Dr. Mirta Jacobson MD Work Phone: [facility] 02-20-2025 10:21-0400 Body weight 104.[address] Mirta Jacobson MD Work Phone: [facility] 02-18-2025 14:55-0400 Body temperature 98.2 [degF] Dr. Mirta Jacobson MD Work Phone: [facility] 02-18-2025 14:55-0400 Diastolic blood pressure 60 mm[Hg] Dr. Mirta Jacobson MD Work Phone: [facility] 02-18-2025 14:55-0400 Heart rate 60 /min Dr. Mirta Jacobson MD Work Phone: [facility] 02-18-2025 14:55-0400 Respiratory rate 16 /min Dr. Mirta Jacobson MD Work Phone: 6(768)689-442804 [place] [address] 02-18-2025 14:55-0400 SaO2% (BldA) [Mass fraction] 98 % Dr. Mirta Jacobson MD Work Phone: 4([phone])[phone] [place] [address] 02-18-2025 14:55-0400 Systolic blood pressure 108 mm[Hg] Dr. Mirta Jacobson MD Work Phone: 5(238)284-084869 [place] [address] 02-18-2025 10:17-0400 Body height 175.[address] Mirta Jacobson MD Work Phone: 6(544)021-138404 [place] [address] 02-18-2025 10:17-0400 Body mass index (BMI) [Ratio] 33.8 kg/m2 Dr. Mirta Jacobson MD Work Phone: 2(704)[phone] [address] 02-18-2025 10:17-0400 Body weight [address] Mirta Jacobson MD Work Phone: 4([phone])183-483104 [place] [address] 12-24-2024 10:57-0500 Body mass index (BMI) [Ratio] 35.9 kg/m2 Dr. Mirta Jacobson MD Work Phone: 0(544)[phone] [place] [address] 12-24-2024 10:57-0500 Body temperature 98.7 [degF] Dr. Mirta Jacobson MD Work Phone: 6(946)146-827404 [place] [address] 12-24-2024 10:57-0500 Body weight 107.[address] Mirta Jacobson MD Work Phone: [facility] 12-24-2024 10:57-0500 Diastolic blood pressure 70 mm[Hg] Dr. Mirta Jacobson MD Work Phone: 5(617)[phone] [place] [address] 12-24-2024 10:57-0500 Heart rate 60 /min Dr. Mirta Jacobson MD Work Phone: [facility] 12-24-2024 10:57-0500 SaO2% (BldA) [Mass fraction] 96 % Dr. Mirta Jacobson MD Work Phone: [facility] 12-24-2024 10:57-0500 Systolic blood pressure 103 mm[Hg] Dr. Mirta Jacobson MD Work Phone: [facility] 11-28-2024 10:18-0500 Body mass index (BMI) [Ratio] 36.3 kg/m2 Dr. Mirta Jacobson MD Work Phone: [facility] 11-28-2024 10:18-0500 Body weight 108.[address] Mirta Jacobson MD Work Phone: [facility] 02-13-2024 10:05-0400 Body height 172.72 cm [facility] 02-13-2024 10:05-0400 Body weight 102.96 kg [facility] 01-02-2024 10:56-0500 Body height 172.[address] Mirta Jacobson Work Phone: [facility] 01-02-2024 10:56-0500 Body weight 105.[address] Mirta Jacobson Work Phone: [facility] 07-14-2022 10:49-0400 Body height 172.72 cm [facility] Work Phone: 07-14-2022 10:49-0400 Body mass index (BMI) [Ratio] 34.2 kg/m2 [facility] Work Phone: 07-14-2022 10:49-0400 Body mass index (BMI) [Ratio] 36.8 kg/m2 Dr. Mirta Jacobson Work Phone: [facility] 07-14-2022 10:49-0400 Body temperature 97.8 [degF] [facility] Work Phone: 07-14-2022 10:49-0400 Body temperature 98.7 [degF] Dr. Mirta Jacobson Work Phone: [facility] 07-14-2022 10:49-0400 Body weight 102.05 kg [facility] Work Phone: 07-14-2022 10:49-0400 Body weight 109.[address] Mirta Jacobson Work Phone: [facility] 07-14-2022 10:49-0400 Diastolic blood pressure 73 mm[Hg] [facility] Work Phone: 07-14-2022 10:49-0400 Diastolic blood pressure 80 mm[Hg] Dr. Mirta Jacobson Work Phone: [facility] 07-14-2022 10:49-0400 Heart rate 70 /min [facility] Work Phone: 07-14-2022 10:49-0400 Heart rate 58 /min Dr. Mirta Jacobson Work Phone: [facility] 07-14-2022 10:49-0400 Respiratory rate 16 /min [facility] Work Phone: 07-14-2022 10:49-0400 SaO2% (BldA) [Mass fraction] 98 % [facility] Work Phone: 07-14-2022 10:49-0400 Systolic blood pressure 116 mm[Hg] [facility] Work Phone: 07-14-2022 10:49-0400 Systolic blood pressure 110 mm[Hg] Dr. Mirta Jacobson Work Phone: [facility] Encounters Encounter Date Encounter Type Care Provider Facility Start: 07-13-2025 End: 07-13-[address] Ananda Xavier MD -[facility] Work Phone: Start: 07-13-2025 End: 07-13-[address] Mirta Jacobson MD Work Phone: -[facility] Start: 06-05-2025 End: 07-10-[address] [facility] Start: 05-11-2025 End: 05-11-[address] Ananda Xavier MD -[facility] Work Phone: Start: 05-11-2025 End: 05-11-[address] Mirta Jacobson MD Work Phone: -[facility] Start: 04-15-2025 End: 04-15-[address] Mirta Jacobson MD Work Phone: [facility] Work Phone: Start: 04-15-2025 End: 04-15-[address] Mirta Jacobson MD -[facility] Work Phone: Start: 04-15-2025 End: 04-15-2025 ambulatory Mirta Jacobson Facility:[facility] Start: 04-02-2025 End: 04-02-[address] Ananda Xavier MD -[facility] Work Phone: Start: 04-02-2025 End: 04-02-[address] Mirta Jacobson MD Work Phone: [facility] Work Phone: Start: 03-09-2025 End: 06-04-[address] [facility] Start: 03-05-2025 End: 03-05-[address] Ananda Xavier MD -[facility] Work Phone: Start: 03-05-2025 End: 03-05-2025 ambulatory Mirta Jacobson Facility:[facility] [place] [place] Start: 02-20-2025 End: 02-20-[address] Ananda Xavier MD -[facility] Work Phone: Start: 02-20-2025 End: 02-20-2025 ambulatory Mirta Jacobson Facility:[facility] [place] [place] Start: 02-18-2025 ambulatory Mirta Jacobson Facilit y:[facility] Start: 02-18-2025 Non-patient / Non-visit Dr. Ananda bishop MD -[facility] Start: 02-18-2025 End: 02-18-2025 Admission to same day surgery center Dr. Ananda Xavier MD -[facility] Start: 02-18-2025 End: 02-18-[address] Mirta Jacobson MD Work Phone: [facility] Work Phone: Start: 12-29-2024 End: 12-29-[address] Ananda Xavier MD -[facility] Work Phone: Start: 12-29-2024 End: 12-29-2024 ambulatory Mirta Jacobson Facility:[facility] Start: 12-24-2024 End: 12-24-2024 Patient encounter procedure Marcus Payne[facility] Work Phone: Start: 12-24-2024 End: 12-24-2024 ambulatory Mirta Jacobson Facility:[facility] Start: 12-22-2024 End: 12-22-[address] Ananda Xavier MD -[facility] Work Phone: Start: 12-22-2024 End: 12-22-2024 ambulatory Mirta Jacobson Facility:[facility] Start: 11-28-2024 End: 11-28-[address] Ananda Xavier MD -[facility] Work Phone: Start: 11-28-2024 End: 11-28-2024 ambulatory Mirta Jacobson Facility:[facility] Start: 10-22-2024 End: 10-22-[address] Mirta Jacobson MD -Laboratory, [facility] Start: 10-22-2024 End: 10-22-2024 ambulatory Mirta Jacobson Facility:[facility] Start: 02-13-2024 End: 03-04-2024 ambulatory [facility] Work Phone: Start: 02-13-2024 End: 03-04-2024 [facility] Start: 01-02-2024 End: 01-03-[address] Mirta Jacobson Work Phone: [facility] Work Phone: Start: 01-02-2024 End: 01-03-[address] [facility] Start: 11-22-2023 End: 11-22-[address] Mirta Jacobson Work Phone: [facility] Work Phone: Start: 11-22-2023 End: 11-22-[address] Mirta Jacobson Work Phone: [facility] Start: 10-30-2023 End: 10-30-[address] Mirta Jacobson Work Phone: [facility] Work Phone: Start: 11-22-2022 End: 11-22-2022 ambulatory [facility] Work Phone: Start: 11-22-2022 End: 11-22-2022 Patient encounter procedure [facility] Services/Neurology Start: 09-14-2022 End: 09-14-2022 ambulatory [facility] Work Phone: Start: 09-14-2022 End: 09-14-2022 Patient encounter procedure [facility] Start: 08-11-2022 End: 08-11-2022 [facility] Start: 07-14-2022 End: 07-14-2022 Emergency department patient visit [facility]-Emergency Department Start: 01-25-2022 End: 01-25-[address] Mirta Jacobson Work Phone: [facility] Start: 11-03-[address] Mirta Jacobson Work Phone: [facility] Start: 10-17-2021 End: 10-17-[address] Mirta Jacobson Work Phone: [facility] Start: 05-10-2017 End: 05-11-2017 Ambulatory PHY WO ID REFERRING Facility:[facility] Procedures Date Procedure Procedure Detail Performing Clinician Start: 04-15-2025 Liquid based cervica l cytology screening Dr. Mirta Jacobson MD Work Phone: Comment on above: NEGATIVE FOR INTRAEP ITHELIAL LESION OR MALIGNANCY. This liquid based Th inPrep(R) pap test was screened withthe use of an image guided system. Start: 02-18-2025 Procedure on shoulder joint Dr. Mirta Jacobson MD Work Phone: Start: 12-22-2024 MRI of joint of lowe r extremity Dr. Mirta Jacobson MD Work Phone: Start: 11-22-2023 Plain X-ray of shoulder Dr. Mirta Jacobson Work Phone: Start: 09-14-2022 X-ray of cervical spine Start: 07-14-2022 Computed tomography of abdomen and pelvis with contrast Start: 01-25-2022 Plain X-ray of shoulder Dr. Mirta Jacobson Work Phone: Plan of Treatment Date Care Activity Detail Author Start: 04-15-2025 Cervical cytology test [facility] Start: 02-20-2025 Patient referral [facility] Work Phone: Start: 02-18-2025 Patient discharge [facility] Start: 02-18-2025 Application of ice collar, cap or bag [facility] Start: 02-18-2025 Assessment of risk of venous thromboembolism [facility] Start: 02-18-2025 Catheterization of vein [facility] Start: 02-18-2025 Continuous positive airway pressure ventilation treatment [facility] Start: 02-18-2025 Following clinical pathway protocol [facility] Start: 02-18-2025 Incentive spirometry [facility] Start: 02-18-2025 Introduction of urinary catheter [facility] Start: 02-18-2025 Vital signs measurements [facility] Start: 02-18-2025 [facility] Start: 02-18-2025 Anes arthrs humeral h/n strnclav & shoulder nos ANESTH SURGERY OF SHOULDER [facility] Start: 02-18-2025 Arthroscopy shoulder rotator cuff repair YAMILE ARTHRS SRG RT8TR CUF RPR [facility] Start: 02-18-2025 Arthroscopy shoulder w/coracoacrm ligmnt release YAMILE ARTHRS SRG DECOMPRESSION [facility] Start: 02-18-2025 Injection aa&/strd brachial plexus NJX AA&/STRD BRCH PLXS IMG [facility] Patient Education [facility] Work Phone: Patient referral [facility] Work Phone: Payers Date Payer Category Payer Self-pay [id number] 2024 Unknown [id number] 1980 Unknown [id number] 2.16.8 [id number] 1980 Unknown [id number] 2.16.8 [id number] Unknown [id number] [facility] [id number] Unknown [id number] 2.16.8 [id number] Unknown [id number] 2.16.8 [id number] Unknown [id number] 2.16.8 [id number] Unknown [id number] 2.16.8 [id number] Unknown [id number] 2.16.8 40.1.196853.3.579.2.462 Unknown [id number] 2.16.8 [id number] Unknown [id number] 2.16.8 40.1.179901.3.579.2.462 Unknown [id number] 2.16.8 40.1.243590.3.579.2.462 Unknown [id number] 2.16.8 40.1.342322.3.579.2.462 Unknown [id number] 2.16.8 40.1.134977.3.579.2.462 Unknown [id number] 2.16.8 40.1.304338.3.579.2.462 Unknown [id number] 2.16.8 40.1.045890.3.579.2.462 Unknown [id number] 2.16.8 [id number] Social History Date Type Detail Facility Start: 09-07-2021 End: 10-30-2023 Tobacco smoking status GAIS Unknown if ever smoked [facility] Start: 1980 Sex Assigned At Female [facility] Start: 02-04-2025 Tobacco smoking status NHIS Ex-smoker (finding) [facility] Start: 02-18-2025 Sex Female (finding) [facility] NEGATED: Highlighted row Not [facility] Medical Equipment Procedure Code Equipment Code Equipment Original Text Equipment Identifier Dates Arleen fundoplication PLEDGET,SO FT 8x8x1.6mm FDA Start: 09-14-2021 Arleen fundoplication PLEDGET,SO FT 8x8x1.6mm FDA Start: 09-14-2021 Arleen fundoplication PLEDGET,SO FT 8x8x1.6mm FDA Start: 09-14-2021 Arleen fundoplication PLEDGET,SO FT 8x8x1.6mm FDA Start: 09-14-2021 Arleen fundoplication PLEDGET,SO FT 8x8x1.6mm FDA Start: 09-14-2021 Arleen fundoplication PLEDGET,SO FT 8x8x1.6mm FDA Start: 09-14-2021 Arleen fundoplication PLEDGET,SO FT 8x8x1.6mm FDA Start: 09-14-2021 Arleen fundoplication PLEDGET,SO FT 8x8x1.6mm FDA Start: 09-14-2021 Arleen fundoplication PLEDGET,SO FT 8x8x1.6mm FDA Start: 09-14-2021 Arleen fundoplication PLEDGET,SO FT 8x8x1.6mm FDA Start: 09-14-2021 Arleen fundoplication PLEDGET,SO FT 8x8x1.6mm FDA Start: 09-14-2021 Arleen fundoplication PLEDGET,SO FT 8x8x1.6mm FDA Start: 09-14-2021 Arthroscopy, shoulder ([id number]) Tendon/lig ament bone anchor, non-bioabsorbable ([id number] FDA Start: 02-18-2025 Goals Date Patient Goal Desired Activity /State Mental Status Date Assessment Result Facility 02-18-2025 Cognitive function Voice/Name [facility] Work Phone: Clinical Notes 11-22-2022 to 07-13-2025 Note Date & Type Note Facility 07-13-2025 Progress note [facility] 07-13-2025 Progress note Note Date/Time July 13, 2025 10:10am [facility] [address] [place] [address] [address] [place] [address] OFFICE VISIT Date of Service: 07/13/25 MR#: [id number] Acct: [id number] Name: SWETHA GERARD Rep #: [id number] : 1980 Provider: Dr. Terry Xavier MD Age/Sex: 45/F Location: [facility] [place] [place].MELLISSA Status: Signed Intake Vital Signs 02/20/25 10:21 Height 5 ft 9 in Weight: 230 lb BMI 34.0 Intake Visit Reasons: LEFT SHOULDER Chief Complaint: left shouler Accompanied by: Self Is patient in pain?: Yes (left shoulder ) Pain scale (1-10): 1 Allergies adhesive tape Allergy (Mild, Verified 07/13/25 09:55) PT UNSURE OF REACTION hydrocodone (From Vicodin) Allergy (Mild, Verified 07/13/25 09:55) Other egg (eggs) Adverse Reaction (Intermediate, Verified 07/13/25 09:55) Diarrhea Medications ?Medication ?Instructions ?Recorded ?Confirmed ?Type albuterol 90 mcg/actuation aerosol 90 mcg inhalation P RN PRN ASTHMA 07/27/21 07/13/25 History inhaler loratadine 10 mg tablet (Claritin) 10 mg PO PRN PRN AL LERGIES 07/27/21 07/13/25 History clonidine HCl 0.2 mg tablet 0.2 mg PO QHS HOT FLASHES 11/28/24 07/13/25 History cholecalciferol (vitamin D3) 1,250 1,250 mcg PO FR 12/3007/13/25 History mcg (50,000 unit) capsule PFSH Medical History Injury of head and neck Left rotator cuff tear Left shoulder pain History of hiatal hernia Wears glasses Arthritis Anemia Gastric reflux Former smoker Asthma Surgical History Hx of removal of ovary History of repair of hiatal hernia History of esophagogastroduodenoscopy (EGD) S/P endometrial ablation S/P tonsillectomy and adenoidectomy S/P tubal ligation S/P laparoscopic cholecystectomy S/P appendectomy Family History Brother Asthma CAD (coronary artery disease) CVA (cerebral vascular accident) Mother Thyroid disorder Daughter Seizures Social History Smoking Status: Former smoker alcohol intake: never HPI LEFT SHOULDER Details: This documentation accurately reflects the service provided and the decisions made by me, Dr. Ananda Xavier MD 07/13/25 0842. Part of today?s visit was documented by [ ], acting as scribe. SWETHA GERARD is a 45 year old F here today for 5 months FU Left shoulder arthroscopy subacromial decompression rotator cuff repair, 2 months from cortisone injection for post op bursitis. Overall patient improving has some mild stiffness. The cortisone injection helped. 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 Coding Level of Care Code Off vis,est,level 3 Diagnoses Left rotator cuff tear M75.102 Assessment and Plan Assessment and Plan (1) Left rotator cuff tear: Status: Acute Plan: SWETHA GERARD is a 45 year old F here today for 5 months FU Left shoulder arthroscopy subacromial decompression rotator cuff repair, 2 months from cortisone injection for post op bursitis. Overall doing well with a slow improvement good strength and good range of motion okay to continue on activities as tolerated follow-up as needed. Ortho Exam General General: Yes no acute distress Neurologic: Yes alert and Yes oriented x3 Psychologic: Yes reasonable and appropriate Left Shoulder Skin/Wound: Yes CDI, Yes healed, No ecchymosis, No erythema and No swelling Testing: No Hawkin's, No Neer's, No Speed's, No TTP Biceps, No TTP AC Joint, YesAROM-Forward Elevation 0-180, Yes AROM-External Rotation at side 0-60 and No empty can SHOULDER: nvi mru ain/pin ax nerve, strong rad pulse. strength 5/5 in FE and ER. a bit sore in IR. 07/13/25 1010 <Electronically signed by Ananda louise MD> Date _ Ananda Xavier MD Cosigner Signature: Date (if applicable) CC: ~ [facility] Work Phone: 1(418) 814-595605-29-2025 Evaluation note* Diagnosis Onset Date Resolution Status Admit Date Left rotator cuff tear acute Ma y 2024 9:47am Left rotator cuff tear acute 2024 9:52am Left shoulder pain acute May 112024 9:52am Left rotator cuff tear acute Se ptember 2024 9:52am [facility] Work Phone: 1(258) 910-279804-16-2025 Consult note [facility] Medical Records Department [address] [place] [address] Pre-Anesthesia Evaluation 02/18/25 0943 MR#: [id number] Acct: [id number] Name: SWETHA GERARD Rep #:[id number] : 1980 44 From: Hari Castro MD PCP: Dr. Mirta Jacobson MD Status:[place] [facility] [place]: C Location: [place] [address] ASA Classification* ASA Classification ASA Classification: 2 Assessment & Plan Anesthesia* Anesthesia Assessment Anesthesia Assessment: Discussed sedation and/or anesthesia options, risks, benefits, and alternatives with patient/parents/legal guardian/POA. Questions invited. The patient/parents/legal guardian/POA seems to understand and agrees to proceedwith anesthesia plan. Reviewed the physical assessment, medical history, allergy history and patient home medications list prior to surgery/procedure/anesthetic and documented any changes. Performed airway and anesthesia risk assessments. Anesthesia Type Anesthesia Type: General and Block Anesthesia Focused Assessment* Airway Assessment Mouth opens: >3 cm Mallampati Score: II Focused Labs Anesthesia Preop lab: CBC WBC 6.7 K/mm3 (4.4-11.0) 10/22/24 10:45 10/22/24 RBC 4.48 M/mm3 (4.2-5.4) 10/22/24 10:45 10/22/24 Hgb 13.0 g/dL (12.0-15.0) 10/22/24 10:45 10/22/24 Hct 39.9 % (37-47) 10/22/24 10:45 10/22/24 Plt Count 232 K/mm3 (150-450) 10/22/24 10:45 10/22/24 CHEMISTRY Potassium 4.4 mmol/L (3.5-5.1) 10/22/24 10:45 10/22/24 Sodium 137 mmol/L (136-145) 10/22/24 10:45 10/22/24 BUN 11 mg/dL (7-18) 10/22/24 10:45 10/22/24 Creatinine 0.77 mg/dL (0.55-1.02) 10/22/24 10:45 10/22/24 Glucose 106 mg/dL (74-106) 10/22/24 10:45 10/22/24 TSH 1.61 uIU/mL (0.358-3.74) 07/05/21 10:27 COAG Pre-Assessment Diagnosis/Proposed Procedure Planned Operative Procedure(s): LEFT SHOULDER ARTHROSCOPY SUBCROMIAL DECOMPRESSION RTC REPAIR Anesthesia History Anesthesia History - sectionizer: Anesthesia History - sectionizer Hx Hospitalization No 02/04/25 10:16 Any Problems With Anesthesia Yes: N,V 02/04/25 10:16 Cholinesterase deficiency No 02/04/25 10:16 You/Your Family Experience No 02/04/25 10:16 fever (hyperthermia) with Relationship Recent Exposure to Contagious No 09/14/21 06:27 Disease Does patient have nerve No 02/04/25 10:16 stimulator Patient instructed to have device shut off --Does patient have Pacemaker or ICD? When Was Last Pacemaker Check QUESTION #4 FULL TEXT: You/Your Family Experience fever (hyperthermia) with Anesthesia Last Oral Intake Last Oral intake: Last Oral Intake NPO since Meds taken in AM with sips of water? Meds patient instructed to take am of surgery PONV PONV - sectionizer: PONV - sectionizer Female Yes 02/04/25 10:16 HX of Motion Sickness Yes 02/04/25 10:16 HX of N/V After Surgery Yes 02/04/25 10:16 Non-Smoker Yes 02/04/25 10:16 Duration of Surgery greater Yes 02/04/25 10:16 than 60 minutes Number of Risk Factors 5 02/04/25 10:16 PONV Score Severe Risk 02/04/25 10:16 Height & Weight Height & Weight: Anesthesia: Height & Weight Height 5 ft 8 in 02/17/25 09:05 Weight: 107.048 kg 02/17/25 09:05 Respiratory Assessment Respiratory Assessment - sectionizer: Respiratory Tract Infection Hx - sectionizer Hx Respiratory Tract Infection No 02/04/25 10:16 STOP Sleep Apnea STOP Sleep Apnea - sectionizer: STOP Sleep Apnea - sectionizer Hx Hypertension No 02/04/25 10:16 Hx Sleep Apnea No 02/04/25 10:16 CPAP BIPAP Do you snore loudly (louder No 02/04/25 10:16 than talking or can be heard Do you often feel tired/ No 02/04/25 10:16 fatigued/ sleepy during daytime? Has anyone observed you stop No 02/04/25 10:16 breathing during sleep? STOP Results Negative 02/04/25 10:16 QUESTION #5 FULL TEXT : Do you snore loudly (louder than talking or can be heard through closeddoors)? 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 confused, unrespo /Reproduction History /Reproductive History - sectionizer: /Reproductive Hx- sectionizer Hx Now No 02/04/25 10:16 Gestational Age (in weeks): EDC: Hx Hx Para Hx Section SAB No 02/04/25 10:16 Active Medications Active Medications: Current Medications Generic Name Dose Route Start Last Admin Trade Name Freq PRN Reason Stop Dose Admin Cefazolin Sodium 2 gm/ N/A 20 mls @ 400 mls/hr 02/18/25 11:50 IV 02/18/25 11:52 X1 ONE [facility] Medical History Injury of head and neck Left rotator cuff tear Left shoulder pain History of hiatal hernia Wears glasses Arthritis Anemia Gastric reflux Former smoker Asthma Home Medications ?Medication ?Instructions ?Recorded ?Last Taken ?Type albuterol 90 mcg/actuation aerosol 90 mcg inhalation P RN PRN ASTHMA 07/27/21 Unknown History inhaler loratadine 10 mg tablet (Claritin) 10 mg PO PRN PRN AL LERGIES 07/27/21 Unknown History clonidine HCl 0.2 mg tablet 0.2 mg PO QHS HOT FLASHES 11/28/24 Unknown History meloxicam 7.5 mg tablet 7.5 mg PO BID PRN pain 2 wee ks #30 12/04/24 Unknown Rx tabs cholecalciferol (vitamin D3) 1,250 1,250 mcg PO FR 12/30 Unknown History mcg (50,000 unit) capsule Allergy/AdvReac Type Severity Reaction Status Date / Time adhesive tape Allergy Mild PT UNSURE Verified 02/04/25 10:13 OF REACTION hydrocodone (From Vicodin) Allergy Mild Other Verified 02/04/25 10:13 egg (eggs) AdvReac Intermediate Diarrhea Verified 02/04/25 10:26 Family History Brother Asthma CAD (coronary artery disease) CVA (cerebral vascular accident) Mother Thyroid disorder Daughter Seizures Surgical History Hx of removal of ovary History of repair of hiatal hernia History of esophagogastroduodenoscopy (EGD) S/P endometrial ablation S/P tonsillectomy and adenoidectomy S/P tubal ligation S/P laparoscopic cholecystectomy S/P appendectomy Social History Smoking Status: Former smoker alcohol intake: never Review of Systems (Anesthesia) ROS Narrative System reviewed and no additional complaints, except as documented. 02/18/25 0943 > Date _ Hari Hebert Signature: Date CC: ~ Signed [facility]04-16-2025 Consult note [facility] Medical Records Department [address] [place] [address] Anesthesia Postop Eval II 02/18/25 1455 MR#: [id number] Acct: [id number] Name: SWETHA GERARD Rep #:[id number] : 1980 44 From: Hari Castro MD PCP: Dr. Mirta Jacobson MD Status:[facility] Y Race: C Location: [place] [address] Anesthesia Postop Eval I Sum Postop Eval Completion status Anesthesia document: Postop Eval 1 completed: Yes Anesthesia Postop Eval I Summary Anesthesia Postop Eval I Summary: Anesthesia Postop Eval I: Assessment Summary Airway patent Yes 02/18/25 14:54 Spontaneous unlabored Yes 02/18/25 14:54 respirations Mental status Awake 02/18/25 14:54 nausea No 02/18/25 14:54 Vomiting No 02/18/25 14:54 Anesthesia Postop Eval I: Fluid Summary Crystalloid volume administer 600 02/18/25 14:54 (ml) Colloids volume administered ( ml) Blood Product volume administered (ml) Total IV fluid infused 600 02/18/25 14:54 Anesthesia Postop Eval I: Summary Notes Anesthesia Complication No 02/18/25 14:54 Anesthesia Complication Comment: Post-operative progress note Anesthesia: Postop Eval II Evaluation Mental status: Awake Pain Level: 2 nausea: No Vomiting: No 02/18/25 1455 > Date _ Hari Hebert Signature: Date CC: ~ Signed [facility]04-16-2025 Consult note [facility] Medical Records Department [address] [place] [address] Anesthesia Postop Eval I 02/18/25 1453 MR#: [id number] Acct: [id number] Name: MOUSTAPHASWETHA HA GWYN Rep #:[id number] : 1980 44 From: Hari Castro MD PCP: Dr. Mirta Jacobson MD Status:[facility] Y Race: C Location: [place] [address] Anesthesia: Postop Eval I Current Vital Signs Temperature: 97 F Pulse Rate: 61 Blood Pressure: 105/73 Respiratory Rate: 16 Pulse Ox: 95 Oxygen Delivery Method: Room Air Assessment Airway patent: Yes Spontaneous unlabored respirations: Yes Mental status: Awake nausea: No Vomiting: No Anesthesia Complication: No Fluid Hydration Crystalloid volume administer (ml): 600 Total IV fluid infused: 600 Progress Note Anesthesia document: Postop Eval 1 completed: Yes 02/18/251453 > Date _ Hari Hebert Signature: Date CC: ~ Signed [facility]04-16-2025 History and physical note Author Ananda Xavier [facility] Note Date/Time February 18, 2025 12: 42pm [facility] Medical Records Department [address] [place] [address] History & Physical Exam 02/18/25 1232 MR#: [id number] Acct: [id number] Name: SWETHA GERARD Rep #:[id number] : 1980 44 From: Ananda Xavier MD PCP: Dr. Mirta Jacobson MD [place] [place] [address] HPI - General HPI Narrative SWETHA GERARD, is a 44 F who presents for left shoulder arthroscopy, subacromialdecompression, rotator cuff repair. No changes in history and physical exam. Risks alternatives benefits as well as postoperative instructions and narcotic counseling given. Left shoulder marked patient understands okay to proceed. MR#: [id number] Acct: [id number] Name: SWETHA GERARD Rep #: [id number] : 1980 Provider: Dr. Ananda Xavier MD Age/Sex: 44/F Location: [facility] [place] [place] Status: Signed Intake Vital Signs 11/28/2509:18 12/24/2509:57 Height 5 ft 8 in 5 ft 8 in Weight: 239 lb BMI 36.3 Intake Visit Reasons: LEFT SHOULDER Accompanied by: Self Allergies adhesive tape Allergy (Mild, Verified 12/29/24 11:17) PT UNSURE OF REACTIONhydrocodone (From Vicodin) Allergy (Mild, Verified 12/29/2510:17) Other Medications ?Medication ?Instructions ?Recorded ?Confirmed ?Type albuterol 90 mcg/actuation aerosol 90 mcg inhalation PRN PRN ASTHMA 1 12/29/24 History inhaler loratadine 10 mg tablet (Claritin) 10 mg PO PRN PRN ALLERGIES 07/27/2112/07 History clonidine HCl 0.2 mg tablet mg PO QDAY 11/28/24 12/29/24 History meloxicam 7.5 mg tablet 7.5 mg PO BID PRN pain 2 weeks #30 12/0412/29/24 Rx tabs methylprednisolone 4 mg tablets in See Rx Instructions PO PER PKG DIR 12/24/24 12/29/24 Rx a dose pack #21 tabs PFSH Medical History Left rotator cuff tear Left shoulder pain Acute sinusitis, unspecified History of hiatal hernia History of edema Wears glasses Arthritis Anemia Gastric reflux Former smoker Asthma Chronic cough Gastroesophageal reflux disease Surgical History History of esophagogastroduodenoscopy (EGD) S/P endometrial ablation S/P tonsillectomy and adenoidectomy S/P tubal ligation S/P laparoscopic cholecystectomy S/P appendectomy Family History Brother Asthma CAD (coronary artery disease) CVA (cerebral vascular accident)Mother Thyroid disorderDaughter Seizures Social History Smoking Status: Former smoker alcohol intake: never HPI LEFT SHOULDER Details: This documentation accurately reflects the service provided and the decisions made by me, Dr. Ananda Xavier MD 12/29/24 8172. Part of today?s visit was documented by [ ], acting as scribe. SWETHA GERARD is a 44 year old F here today for FU L shoulder MRI. Supplemental Info [facility] Imaging Services [address] [place], [place] [address] Upper Ext Joint Only(Routine) MR#: [id number] Acct: [id number] Name: SWETHA GERARD Rep #: [id number] : 1980 F 44 From: Luis Rivera DO PCP: Dr. Mirta Jacobson MD Status: REG CLI Study: Upper Ext Joint Only(Routine) Date of Exam: 12/22/24 Exam# [id number] Ordering Dr: Ananda Xavier MD PROCEDURE: MRI left shoulder without IV contrast REASON FOR EXAM: Pain TECHNIQUE: Multisequence multiplanar MR images of the left shoulder were obtained without the administration of intravenous contrast. COMPARISON: None. FINDINGS 50% partial-thickness intrasubstance tear of the mid supraspinatus tendon at its critical zone measuring up to 6 mm in width which may also extend to the bursal surface. Mild superimposed supraspinatus tendinopathy. Infraspinatus and subscapularis tendons are intact. Mild teres minor muscle atrophy. Intact long head biceps tendon. Glenohumeral alignment is maintained. No joint effusion. No displaced labral tear or paralabral cysts. No focal chondral defects. Acromioclavicular joint alignment is maintained. No significant degenerative changes. Negative for fracture or marrow replacement. Small amount of fluid in the subacromial/subdeltoid bursa. MRI/Upper Ext Joint Only(Routine) IMPRESSION: 1. Partial thickness partial width partial-thickness tear of the supraspinatus tendon as above. 2. Small amount of fluid in the subacromial/subdeltoid bursa. 3. Mild teres minor muscle atrophy. Reading Location: [facility] I independently reviewed the imaging. Concur with radiologist report. Coding Level of Care Code Off vis,est,level 3 Diagnoses Left shoulder pain M25.512 Left rotator cuff tear M75.102 Assessment and Plan Assessment and Plan (1) Left shoulder pain: Status: Acute Plan: 44 yr F with L shoulder pain, small RC tear. Patient explained the pros and cons risks and benefits of nonoperative management versus surgery. The patient would like to go ahead with surgery in the form of left shoulder arthroscopy, subacromial decompression, rotator cuff repair. Explained the postoperative recovery 2 weeks in a sling 6 weeks of range of motion exercises followed by 6 weeks of strengthening return to normal activities typically by 3 to 6 months after surgery. The patient understands and wishes to go ahead with the operation and signed the consent form for that and no further questions. Pros and cons risks and benefits were discussed with the patient including but not limited to infection, pain, stiffness, bleeding, damage to surrounding structures, neurovascular injury, recurrence or retear, failure or wear of hardware or fixation, instability, fracture, deep vein thrombosis and pulmonary embolism, anesthetic risks, , patient dissatisfaction, need for further surgery and other risks. Patient understood and wished to proceed with surgery,and signed the informed consent documentation. (2) Left rotator cuff tear: Status: Acute [facility] Medical History Injury of head and neck Left rotator cuff tear Left shoulder pain History of hiatal hernia Wears glasses Arthritis Anemia Gastric reflux Former smoker Asthma Home Medications ?Medication ?Instructions ?Recorded ?Last Taken ?Type albuterol 90 mcg/actuation aerosol 90 mcg inhalation P RN PRN ASTHMA 07/27/21 Unknown History inhaler loratadine 10 mg tablet (Claritin) 10 mg PO PRN PRN AL LERGIES 07/27/21 Unknown History clonidine HCl 0.2 mg tablet 0.2 mg PO QHS HOT FLASHES 01/24/25 04/14/25 History meloxicam 7.5 mg tablet 7.5 mg PO BID PRN pain 2 dilma apple #30 12/04/24 Unknown Rx tabs cholecalciferol (vitamin D3) 1,250 1,250 mcg PO FR 12/3002/13/25 History mcg (50,000 unit) capsule Allergy/AdvReac Type Severity Reaction Status Date / Time adhesive tape Allergy Mild PT UNSURE Verified 02/18/25 10:13 OF REACTION hydrocodone (From Vicodin) Allergy Mild Other Verified 02/18/25 10:13 egg (eggs) AdvReac Intermediate Diarrhea Verified 02/18/25 10:13 Family History Brother Asthma CAD (coronary artery disease) CVA (cerebral vascular accident) Mother Thyroid disorder Daughter Seizures Surgical History Hx of removal of ovary History of repair of hiatal hernia History of esophagogastroduodenoscopy (EGD) S/P endometrial ablation S/P tonsillectomy and adenoidectomy S/P tubal ligation S/P laparoscopic cholecystectomy S/P appendectomy Social History Smoking Status: Former smoker alcohol intake: never Vital Signs Vital Signs Vital Signs: 02/18/25 10:17 02/18/25 10:17 Temperature 96.8 F L Temperature Source Temporal Pulse Rate 57 L Respiratory Rate 16 Respiratory Pattern Normal Blood Pressure 111/75 Blood Pressure Mean 87 Blood Pressure Source Monitor Blood Pressure Position Semi-Fowlers Blood Pressure Location Left Arm Pulse Ox 99 Oxygen Delivery Method Room Air Weight Weight: 229 lb 4.492 oz Body Mass Index (BMI) 33.8 02/18/25 1242 <Electronically signed by Ananda Xavier MD> Cosigner Signature (if applicable): CC: Dr. Mirta Jacobson MD; Dr. Ananda Xavier MD~ Signed [facility] Work Phone: 1(437) 514-576604-16-2025 Discharge summary [facility] Medical Records Department [address] [place] [address] Instructions for Home/Discharge Instructions 02/18/25 1404 MR#: [id number] Acct: [id number] Name: SWETHA GERARD Rep #:[id number] : 1980 44 From: Ananda Xavier MD PCP: Dr. Mirta Jacobson MD [place] [place] Instructions Diet Discharge Diet: No restrictions Activity Ice area for (Minutes): 10 Lifting Restrictions: no lifting, pendulums 4x/day Additional Activity Instructions:: ok for hand wrist elbow rom, ok to remove sling at rest Dressing / Incision Call your doctor if your incision/area has: Continuous Slow Oozing, Sudden Increased Bleeding, Increased Pain/ Swelling, Increased Redness, Foul Smelling Discharge and Swelling at the incision site Call your doctor if you observe: Fever of 101 or Higher, Coldness, Increased Pain and Numbness or Tingling Change Dressing in: leave in place till F/U Cleanse incision/area with: Do not get Incision Wet Follow Up Care Please Follow Up With: Ananda Xavier MD When: 2 days or within 2 weeks Test Results: Test results from this visit will be discussed in further detail at your follow- up appointment, if applicable. Discharge Plan Admission Attending Provider: Ananda Xavier Primary Care Provider: Mirta Jacobson Instructions Patient Instructions: After Shoulder Arthroscopy Print Language: Kosovan Discharge Orders/Prescriptions Prescriptions: New oxycodone-acetaminophen [Endocet] 2.5-325 mg tablet 1 tab PO Q4H MDD 6 PRN (Reason: pain) 3 Days Qty: 20 0RF No Action clonidine HCl 0.2 mg tablet 0.2 mg PO QHS Patient Comments: [NO ORIGINAL SIG] albuterol 90 mcg/actuation Aerosol 90 mcg INHALATION PRN PRN (Reason: ASTHMA) loratadine [Claritin] 10 mg Tablet 10 mg PO PRN PRN (Reason: ALLERGIES) cholecalciferol (vitamin D3) 1,250 mcg (50,000 unit) capsule 1,250 mcg PO FR meloxicam 7.5 mg tablet 7.5 mg PO BID MDD 2 PRN (Reason: pain) 14 Days Qty: 30 1RF Referrals / Follow Up: Mirta Jacobson MD [Primary Care Provider] - Disposition Disposition (needs filled in before D/C Order can be placed): Home, Self Care 02/18/25 1406Scevaristo Xavier MD CC: Dr. Mirta Jacobson MD ~ Signed [facility]04-16-2025 Procedure note [facility] Medical Records Department [address] [place] [address] Operative Report 02/18/25 1356 MR#: [id number] Acct: [id number] Name: SWETHA GERARD Rep #:[id number] : 1980 44 From: Ananda Xavier MD PCP: Dr. 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 Tile Ditcher: farhad Tasks completed by pediatric assistant: Retracting Type of Anesthesia: Block,Regional and General RN Documented Start/Stop Times: Operation Date: 02/18/25 11:50 Case Time Into Pre-Op 02/18/25 10:16 Anesthesia Start 02/18/25 12:57 Into Room 02/18/25 12:57 Procedure Start 02/18/25 13:19 Procedure Start Time: 13:19 Procedure Stop Time: 14:00 Select all DRAINS/GRAFTS/IMPLANTS that apply: Implanted device Implanted device details: Arthrex knotless fiber tack RC rotator cuff repair anchors 2.6mm x 2 Estimated Blood Loss: 25 Specimen collected: No Description of surgery: Patient brought to the operating room theater. Placed supine on the table. General anesthesia induced. Patient transferred left side up lateral decubitus beanbag positioner axillary roll used. All bony prominences padded. SCDs and legs. 2 g IV Ancef administered prior to the start of the case. Upper extremity prepped and draped in the usual sterile fashion with chlorhexidine-based prep solution allowing over 3 minutes drying time prior to draping. 10 pounds of inline traction with the arm in 40degrees of abduction was used. Preoperative timeout performed confirm the site patient and surgery. Began by inserting the arthroscope into the intra-articular portion of the shoulder through a standard posterior arthroscopy portal. Did a full diagnostic arthroscopy. Normal cartilage on the glenoidand humeral head. No loose bodies. The labrum appeared slightly degenerative at the biceps attachment, so did gentle debridement for type 1 slap. I made anterior portal through the rotator interval. No under surface cuff tears, subscapularis normal. Next I turned my attention to and placed the scope in the subacromial space. I did a bursectomy there is a moderate amount of inflammatory bursitis. I did a subacromial decompression for 3 mm. I examined the superior aspect of the rotator cuff. There is an area of partial-thickness intra tendon tearing. I elected to do a trans tendon repair technique. I placed 2 anchors both Arthrex knotless selfpunching 2.6 mm fiber tack anchors. One just anterior to the tearand 1 just posterior to the tear. Rotator cuff tendon appeared healthy overall. I then used the repair suture transferred this to the shuttling suture from thecontralateral anchor and converted the anchor. I then did the opposite for the posterior anchor to create a [id number] to suture configuration. This was appropriately tensioned and suture was cut short. Arthroscopy pictures taken and saved onto the case. Skin closed with 3-0 Monocryl. Skin cleaned with wet dry dressing followed application of Steri-Strips Adaptic 4 x 4 gauze ABD dressing cloth tape and an abduction pillow sling for the upper extremity. Patient woken up from general anesthetic transferred off the operating table andtaken to postanesthetic care unit in stable condition. All sponge needle instrument counts were correct no complications plan for the patient discharge home according to day surgery criteria follow-up in the office in 2weeks time and wearing the sling with breaks. CPT 74236, 39543 Surgical Findings: as above Complications Complications: No Admit VTE Documentation VTE Present on Admission: No VTE Mechan Device Prophylaxis: SCD's VTE Pharm Prophylaxis ordered?: No Reason prophylaxis not ordered: Treatment Not Indicated 02/18/25 1403 Cosigner Signature (if applicable): CC: Dr. Mirta Jacobson MD; Dr. Ananda Xavier MD~ Signed [facility]04-16-2025 History and physical note [facility] Medical Records Department [address] [place] [address] History & Physical Exam 02/18/25 1232 MR#: [id number] Acct: [id number] Name: SWETHA GERARD Rep #:[id number] : 1980 44 From: nAanda Xavier MD PCP: Dr. Mirta Jacobson MD [place] [place] [address] HPI - General HPI Narrative SWETHA GERARD, is a 44 F who presents for left shoulder arthroscopy, subacromialdecompression, rotator cuff repair. No changes in history and physical exam. Risks alternatives benefits as well as postoperative instructions and narcotic counseling given. Left shoulder marked patient understands okayto proceed. MR#: [id number] Acct: [id number] Name: SWETHA GERARD Rep #: [id number] : 1980 Provider: Dr. Ananda Xavier MD Age/Sex: 44/F Location: [facility] [place] [place] Status: Signed Intake Vital Signs 11/28/2509:18 12/24/2509:57 Height 5 ft 8 in 5 ft 8 in Weight: 239 lb BMI 36.3 Intake Visit Reasons: LEFT SHOULDER Accompanied by: Self Allergies adhesive tape Allergy (Mild, Verified 12/29/24 11:17) PT UNSURE OF REACTIONhydrocodone (From Vicodin) Allergy (Mild, Verified 12/29/2510:17) Other Medications ?Medication ?Instructions ?Recorded ?Confirmed ?Type albuterol 90 mcg/actuation aerosol 90 mcg inhalation PRN PRN ASTHMA 1 12/29/24 History inhaler loratadine 10 mg tablet (Claritin) 10 mg PO PRN PRN ALLERGIES 07/27/2112/07 History clonidine HCl 0.2 mg tablet mg PO QDAY 11/28/24 12/29/24 History meloxicam 7.5 mg tablet 7.5 mg PO BID PRN pain 2 weeks #30 12/0412/29/24 Rx tabs methylprednisolone 4 mg tablets in See Rx Instructions PO PER PKG DIR 12/24/24 12/29/24 Rx a dose pack #21 tabs PFSH Medical History Left rotator cuff tear Left shoulder pain Acute sinusitis, unspecified History of hiatal hernia History of edema Wears glasses Arthritis Anemia Gastric reflux Former smoker Asthma Chronic cough Gastroesophageal reflux disease Surgical History History of esophagogastroduodenoscopy (EGD) S/P endometrial ablation S/P tonsillectomy and adenoidectomy S/P tubal ligation S/P laparoscopic cholecystectomy S/P appendectomy Family History Brother Asthma CAD (coronary artery disease) CVA (cerebral vascular accident)Mother Thyroid disorderDaughter Seizures Social History Smoking Status: Former smoker alcohol intake: never HPI LEFT SHOULDER Details: This documentation accurately reflects the service provided and the decisions made by me, Dr. Dimitri MD 12/29/24 0714. Part of today?s visit was documented by [ ], acting as scribe. SWETHA GERARD is a 44 year old F here today for FU L shoulder MRI. Supplemental Info [facility] Imaging Services [address] [place] [id number] Upper Ext Joint Only(Routine) MR#: [id number] Acct: [id number] Name: SWETHA GERARD Rep #: [id number] : 1980 F 44 From: Luis Rivera DO PCP: Dr. Mirta Jacobson MD Status: REG CLI Study: Upper Ext Joint Only(Routine) Date of Exam: 12/22/24 Exam# [id number] Ordering Dr: Ananda Xavier MD PROCEDURE: MRI left shoulder without IV contrast REASON FOR EXAM: Pain TECHNIQUE: Multisequence multiplanar MR images of the left shoulder were obtained without the administration of intravenous contrast. COMPARISON: None. FINDINGS 50% partial-thickness intrasubstance tear of the mid supraspinatus tendon at its critical zone measuring up to 6 mm in width which may also extend to the bursal surface. Mild superimposed supraspinatus tendinopathy. Infraspinatus and subscapularis tendons are intact. Mild teres minor muscle atrophy. Intact long head biceps tendon. Glenohumeral alignment is maintained. No joint effusion. No displaced labral tear or paralabral cysts. No focal chondral defects. Acromioclavicular joint alignment is maintained. No significant degenerative changes. Negative for fracture or marrow replacement. Small amount of fluid in the subacromial/subdeltoid bursa. MRI/Upper Ext Joint Only(Routine) IMPRESSION: 1. Partial thickness partial width partial-thickness tear of the supraspinatus tendon as above. 2. Small amount of fluid in the subacromial/subdeltoid bursa. 3. Mild teres minor muscle atrophy. Reading Location: [facility] independently reviewed the imaging. Concur with radiologist report. Coding Level of Care Code Off vis,est,level 3 Diagnoses Left shoulder pain M25.512 Left rotator cuff tear M75.102 Assessment and Plan Assessment and Plan (1) Left shoulder pain: Status: Acute Plan: 44 yr F with L shoulder pain, small RC tear. Patient explained the pros and cons risks and benefits of nonoperative management versus surgery. The patient would like to go ahead with surgery in the form of left shoulder arthroscopy, subacromial decompression, rotator cuff repair. Explained the postoperative recovery 2 weeks in a sling 6 weeks of range of motion exercises followed by 6 weeks of strengthening return to normal activities typically by 3 to 6 months after surgery. The patient understands and wishes to go ahead with the operation and signed the consent form for that and no further questions. Pros and cons risks and benefits were discussed with the patient including but not limited to infection, pain, stiffness, bleeding, damage to surrounding structures, neurovascular injury, recurrence or retear, failure or wear of hardware or fixation, instability, fracture, deepvein thrombosis and pulmonary embolism, anesthetic risks, , patient dissatisfaction, need for further surgery and other risks. Patient understood and wished to proceed with surgery,and signed the informed consent documentation. (2) Left rotator cuff tear: Status: Acute [facility] Medical History Injury of head and neck Left rotator cuff tear Left shoulder pain History of hiatal hernia Wears glasses Arthritis Anemia Gastric reflux Former smoker Asthma Home Medications ?Medication ?Instructions ?Recorded ?Last Taken ?Type albuterol 90 mcg/actuation aerosol 90 mcg inhalation P RN PRN ASTHMA 07/27/21 Unknown History inhaler loratadine 10 mg tablet (Claritin) 10 mg PO PRN PRN AL LERGIES 07/27/21 Unknown History clonidine HCl 0.2 mg tablet 0.2 mg PO QHS HOT FLASHES 11/28/24 02/16/25 History meloxicam 7.5 mg tablet 7.5 mg PO BID PRN pain 2 wejyotsna ks #30 12/04/24 Unknown Rx tabs cholecalciferol (vitamin D3) 1,250 1,250 mcg PO FR 12/3002/13/25 History mcg (50,000 unit) capsule Allergy/AdvReac Type Severity Reaction Status Date / Time adhesive tape Allergy Mild PT UNSURE Verified 02/18/25 10:13 OF REACTION hydrocodone (From Vicodin) Allergy Mild Other Verified 02/18/25 10:13 egg (eggs) AdvReac Intermediate Diarrhea Verified 02/18/25 10:13 Family History Brother Asthma CAD (coronary artery disease) CVA (cerebral vascular accident) Mother Thyroid disorder Daughter Seizures Surgical History Hx of removal of ovary History of repair of hiatal hernia History of esophagogastroduodenoscopy (EGD) S/P endometrial ablation S/P tonsillectomy and adenoidectomy S/P tubal ligation S/P laparoscopic cholecystectomy S/P appendectomy Social History Smoking Status: Former smoker alcohol intake: never Vital Signs Vital Signs Vital Signs: 02/18/25 10:17 02/18/25 10:17 Temperature 96.8 F L Temperature Source Temporal Pulse Rate 57 L Respiratory Rate 16 Respiratory Pattern Normal Blood Pressure 111/75 Blood Pressure Mean 87 Blood Pressure Source Monitor Blood Pressure Position Semi-Fowlers Blood Pressure Location Left Arm Pulse Ox 99 Oxygen Delivery Method Room Air Weight Weight: 229 lb 4.492 oz Body Mass Index (BMI) 33.8 02/18/25 1242 Cosigner Signature (if applicable): CC: Dr. Mirta Jacobson MD; Dr. Ananda Xavier MD~ Signed [facility]04-16-2025 [facility] Medical Records Department [address] [place] [address] History Physical Exam 02/18/25 1232 MR#: [id number] Acct: [id number] Name: SWETHA GERARD Rep #: [id number] : 1980 44 From: Ananda Xavier MD PCP: Dr. Mirta Jacobson MD [place] [place] [address] HPI - General HPI Narrative SWETHA GERARD, is a 44 F who presents for left shoulder arthroscopy, subacromial decompression, rotator cuff repair. No changes in history and physical exam. Risks alternatives benefits as well as postoperative instructions and narcotic counseling given. Left shoulder marked patient understands okay to proceed. MR#: [id number] Acct: [id number] Name: SWETHA GERARD Rep #: [id number] : 1980 Provider: Dr. Ananda Xavier MD Age/Sex: 44/F Location: [facility] [place], [place] Status: Signed Intake Vital Signs 11/28/2509:18 12/24/2509:57 Height 5 ft 8 in 5 ft 8 in Weight: 239 lb BMI 36.3 Intake Visit Reasons: LEFT SHOULDER Accompanied by: Self Allergies adhesive tape Allergy (Mild, Verified 12/29/24 11:17) PT UNSURE OF REACTIONhydrocodone (From Vicodin) Allergy (Mild, Verified 12/29/24 11:17) Other Medications ???Medication ???Instructions ???Recorded ???Confirmed ???Type albuterol 90 mcg/actuation aerosol 90 mcg inhalation PRN PRN ASTHMA 07/27/21 12/29/24 History inhaler loratadine 10 mg tablet (Claritin) 10 mg PO PRN PRN ALLERGIES 07/27/21 12/29/24 Histo ry clonidine HCl 0.2 mg tablet mg PO QDAY 11/28/24 12/29/24 History meloxicam 7.5 mg tablet 7.5 mg PO BID PRN pain 2 weeks #30 12/04/24 Rx tabs methylprednisolone 4 mg tablets in See Rx Instructions PO PER PKG DIR 12/24/24 12/29/24 Rx a dose pack #21 tabs PFSH Medical History Left rotator cuff tear Left shoulder pain Acute sinusitis, unspecified History of hiatal hernia History of edema Wears glasses Arthritis Anemia Gastric reflux Former smoker Asthma Chronic cough Gastroesophageal reflux disease Surgical History History of esophagogastroduodenoscopy (EGD) S/P endometrial ablation S/P tonsillectomy and adenoidectomy S/P tubal ligation S/P laparoscopic cholecystectomy S/P appendectomy Family History Brother Asthma CAD (coronary artery disease) CVA (cerebral vascular accident)Mother Thyroid disorderDaughter Seizures Social History Smoking Status: Former smoker alcohol intake: never HPI LEFT SHOULDER Details: This documentation accurately reflects the service provided and the decisions made by me, Dr. Ananda Xavier MD 12/29/24 0918. Part of today???s visit was documented by [ ], acting as scribe. SWETHA GERARD is a 44 year old F here today for FU L shoulder MRI. Supplemental Info [facility] Imaging Services [address] [place] [address] Upper Ext Joint Only(Routine) MR#: [id number] Acct: [id number] Name: SWETHA GERARD Rep #: [id number] : 1980 F 44 From: Luis Rivera DO PCP: Dr. Mirta Jacobson MD Status: REG CLI Study: Upper Ext Joint Only(Routine) Date of Exam: 12/22/24 Exam# [id number] Ordering Dr: Ananda Xavier MD PROCEDURE: MRI left shoulder without IV contrast REASON FOR EXAM: Pain TECHNIQUE: Multisequence multiplanar MR images of the left shoulder were obtained without the administration of intravenous contrast. COMPARISON: None. FINDINGS 50% partial-thickness intrasubstance tear of the mid supraspinatus tendon at its critical zone measuring up to 6 mm in width which may also extend to the bursal surface. Mild superimposed supraspinatus tendinopathy. Infraspinatus and subscapularis tendons are intact. Mild teres minor muscle atrophy. Intact long head biceps tendon. Glenohumeral alignment is maintained. No joint effusion. No displaced labral tear or paralabral cysts. No focal chondral defects. Acromioclavicular joint alignment is maintained. No significant degenerative changes. Negative for fracture or marrow replacement. Small amount of fluid in the subacromial/subdeltoid bursa. MRI/Upper Ext Joint Only(Routine) IMPRESSION: 1. Partial thickness partial width partial-thickness tear of the supraspinatus tendon as above. 2. Small amount of fluid in the subacromial/subdeltoid bursa. 3. M (more content not included)...[facility]04-16-2025 Consult note Author Hari Castro [facility] Note Date/Time February 18, 2025 3:5 8pm [facility] Medical Records Department [address] [place] [address] Pre-Anesthesia Evaluation 02/18/25 0943 MR#: [id number] Acct: [id number] Name: SWETHA GERARD Rep #:[id number] : 1980 44 From: Hari Castro MD PCP: Dr. Mirta Jacobson MD Status: [facility] [place] Race: C Location: [place] [address] ASA Classification* ASA Classification ASA Classification: 2 Assessment & Plan Anesthesia* Anesthesia Assessment Anesthesia Assessment: Discussed sedation and/or anesthesia options, risks, benefits, and alternatives with patient/parents/legal guardian/POA. Questions invited. The patient/parents/legal guardian/POA seems to understand and agrees to proceedwith anesthesia plan. Reviewed the physical assessment, medical history, allergy history and patient home medications list prior to surgery/procedure/anesthetic and documented any changes. Performed airway and anesthesia risk assessments. Anesthesia Type Anesthesia Type: General and Block Anesthesia Focused Assessment* Airway Assessment Mouth opens: >3 cm Mallampati Score: II Focused Labs Anesthesia Preop lab: CBC WBC 6.7 K/mm3 (4.4-11.0) 10/22/24 10:45 10/22/24 RBC 4.48 M/mm3 (4.2-5.4) 10/22/24 10:45 10/22/24 Hgb 13.0 g/dL (12.0-15.0) 10/22/24 10:45 10/22/24 Hct 39.9 % (37-47) 10/22/24 10:45 10/22/24 Plt Count 232 K/mm3 (150-450) 10/22/24 10:45 10/22/24 CHEMISTRY Potassium 4.4 mmol/L (3.5-5.1) 10/22/24 10:45 10/22/24 Sodium 137 mmol/L (136-145) 10/22/24 10:45 10/22/24 BUN 11 mg/dL (7-18) 10/22/24 10:45 10/22/24 Creatinine 0.77 mg/dL (0.55-1.02) 10/22/24 10:45 10/22/24 Glucose 106 mg/dL (74-106) 10/22/24 10:45 10/22/24 TSH 1.61 uIU/mL (0.358-3.74) 07/05/21 10:27 COAG Pre-Assessment Diagnosis/Proposed Procedure Planned Operative Procedure(s): LEFT SHOULDER ARTHROSCOPY SUBCROMIAL DECOMPRESSION RTC REPAIR Anesthesia History Anesthesia History - sectionizer: Anesthesia History - sectionizer Hx Hospitalization No 02/04/25 10:16 Any Problems With Anesthesia Yes: N,V 02/04/25 10:16 Cholinesterase deficiency No 02/04/25 10:16 You/Your Family Experience No 02/04/25 10:16 fever (hyperthermia) with Relationship Recent Exposure to Contagious No 09/14/21 06:27 Disease Does patient have nerve No 02/04/25 10:16 stimulator Patient instructed to have device shut off --Does patient have Pacemaker or ICD? When Was Last Pacemaker Check QUESTION #4 FULL TEXT: You/Your Family Experience fever (hyperthermia) with Anesthesia Last Oral Intake Last Oral intake: Last Oral Intake NPO since Meds taken in AM with sips of water? Meds patient instructed to take am of surgery PONV PONV - sectionizer: PONV - sectionizer Female Yes 02/04/25 10:16 HX of Motion Sickness Yes 02/04/25 10:16 HX of N/V After Surgery Yes 02/04/25 10:16 Non-Smoker Yes 02/04/25 10:16 Duration of Surgery greater Yes 02/04/25 10:16 than 60 minutes Number of Risk Factors 5 02/04/25 10:16 PONV Score Severe Risk 02/04/25 10:16 Height & Weight Height & Weight: Anesthesia: Height & Weight Height 5 ft 8 in 02/17/25 09:05 Weight: 107.048 kg 02/17/25 09:05 Respiratory Assessment Respiratory Assessment - sectionizer: Respiratory Tract Infection Hx - sectionizer Hx Respiratory Tract Infection No 02/04/25 10:16 STOP Sleep Apnea STOP Sleep Apnea - sectionizer: STOP Sleep Apnea - sectionizer Hx Hypertension No 02/04/25 10:16 Hx Sleep Apnea No 02/04/25 10:16 CPAP BIPAP Do you snore loudly (louder No 02/04/25 10:16 than talking or can be heard Do you often feel tired/ No 02/04/25 10:16 fatigued/ sleepy during daytime? Has anyone observed you stop No 02/04/25 10:16 breathing during sleep? STOP Results Negative 02/04/25 10:16 QUESTION #5 FULL TEXT : Do you snore loudly (louder than talking or can be heard through closed doors)? 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 confused, unrespo /Reproduction History /Reproductive History - sectionizer: /Reproductive Hx- sectionizer Hx Now No 02/04/25 10:16 Gestational Age (in weeks): EDC: Hx Hx Para Hx Section SAB No 02/04/25 10:16 Active Medications Active Medications: Current Medications Generic Name Dose Route Start Last Admin Trade Name Freq PRN Reason Stop Dose Admin Cefazolin Sodium 2 gm/ N/A 20 mls @ 400 mls/hr 02/18/25 11:50 IV 02/18/25 11:52 X1 ONE [facility] Medical History Injury of head and neck Left rotator cuff tear Left shoulder pain History of hiatal hernia Wears glasses Arthritis Anemia Gastric reflux Former smoker Asthma Home Medications ?Medication ?Instructions ?Recorded ?Last Taken ?Type albuterol 90 mcg/actuation aerosol 90 mcg inhalation P RN PRN ASTHMA 07/27/21 Unknown History inhaler loratadine 10 mg tablet (Claritin) 10 mg PO PRN PRN AL LERGIES 07/27/21 Unknown History clonidine HCl 0.2 mg tablet 0.2 mg PO QHS HOT FLASHES 11/28/24 Unknown History meloxicam 7.5 mg tablet 7.5 mg PO BID PRN pain 2 wee ks #30 12/04/24 Unknown Rx tabs cholecalciferol (vitamin D3) 1,250 1,250 mcg PO FR 12/30 Unknown History mcg (50,000 unit) capsule Allergy/AdvReac Type Severity Reaction Status Date / Time adhesive tape Allergy Mild PT UNSURE Verified 02/04/25 10:13 OF REACTION hydrocodone (From Vicodin) Allergy Mild Other Verified 02/04/25 10:13 egg (eggs) AdvReac Intermediate Diarrhea Verified 02/04/25 10:26 Family History Brother Asthma CAD (coronary artery disease) CVA (cerebral vascular accident) Mother Thyroid disorder Daughter Seizures Surgical History Hx of removal of ovary History of repair of hiatal hernia History of esophagogastroduodenoscopy (EGD) S/P endometrial ablation S/P tonsillectomy and adenoidectomy S/P tubal ligation S/P laparoscopic cholecystectomy S/P appendectomy Social History Smoking Status: Former smoker alcohol intake: never Review of Systems (Anesthesia) ROS Narrative System reviewed and no additional complaints, except as documented. 02/18/25 0943 <Electronically signed by Hari Castro MD > Date _ Hari Castro MD Cosigner Signature: Date CC: ~ Signed [facility] Work Phone: 1(513) 296-996004-16-2025 Evaluation note* Diagnosis Onset Date Resolution Status Admit Date Left rotator cuff tear acute Ap ril 2024 9:40am Left shoulder pain acute February 18, 2025 9:40am Left rotator cuff tear acute Ap ril 2024 9:55am Left shoulder pain acute February 20, 2025 9:55am Left rotator cuff tear acute Ma y 2024 10:00am Left rotator cuff tear acute Ma y 2024 9:47am Left rotator cuff tear acute Ju 2024 9:52am Left shoulder pain acute May 112024 9:52am [facility] Work Phone: 1(721) 262-477402-19-2025 Evaluation note* Diagnosis Onset Date Resolution Status Admit Date Acute bronchitis acute December 24, 2024 10:46am Left rotator cuff tear acute Fe bruary 2024 11:11am Left shoulder pain acute Februa ry 2024 11:11am Left rotator cuff tear acute Ap ril 2024 9:40am Left shoulder pain acute February 18, 2025 9:40am Left rotator cuff tear acute Ap ril 2024 9:55am Left shoulder pain acute February 20, 2025 9:55am Left rotator cuff tear acute Ma y 2024 10:00am Left rotator cuff tear acute Ma y 2024 9:47am [facility] Work Phone: 1(731) 405-910201-24-2025 Evaluation note* Diagnosis Onset Date Resolution Status Admit Date Left shoulder pain acute Januar y 2024 10:16am Acute bronchitis acute December 24, 2024 10:46am Left rotator cuff tear acute Fe bruary 2024 11:11am Left shoulder pain acute Februa ry 2024 11:11am Left rotator cuff tear acute Ap ril 2024 9:40am Left shoulder pain acute February 18, 2025 9:40am [facility] Work Phone: 1(138) 644-723501-18-2023 Procedure [facility] Consult note Author Hari Castro [facility] Note Date/Time February 18, 2025 2:5 4pm [facility] Medical Records Department [address] [place] [address] Anesthesia Postop Eval I 02/18/25 1453 MR#: [id number] Acct: [id number] Name: SWETHA GERARD Rep #:[id number] : 1980 44 From: Hari Castro MD PCP: Dr. Mirta Jacobson MD Status[place] [place] C Location: [place] [address] Anesthesia: Postop Eval I Current Vital Signs Temperature: 97 F Pulse Rate: 61 Blood Pressure: 105/73 Respiratory Rate: 16 Pulse Ox: 95 Oxygen Delivery Method: Room Air Assessment Airway patent: Yes Spontaneous unlabored respirations: Yes Mental status: Awake nausea: No Vomiting: No Anesthesia Complication: No Fluid Hydration Crystalloid volume administer (ml): 600 Total IV fluid infused: 600 Progress Note Anesthesia document: Postop Eval 1 completed: Yes 02/18/25 1454 <Electronically signed by Hari Castro MD > Date _ Hari Castro MD Cosigner Signature: Date CC: ~ Signed [facility] Work Phone: Consult note Author Hari Castro [facility] Note Date/Time February 18, 2025 3:5 8pm [facility] Medical Records Department [address] [place] [address] Anesthesia Postop Eval II 02/18/25 1455 MR#: [id number] Acct: [id number] Name: SWETHA GERARD Rep #:[id number] : 1980 44 From: Hari Castro MD PCP: Dr. Mirta Jacobson MD Status:[facility] Y Race: C Location: [place] [address] Anesthesia Postop Eval I Sum Postop Eval Completion status Anesthesia document: Postop Eval 1 completed: Yes Anesthesia Postop Eval I Summary Anesthesia Postop Eval I Summary: Anesthesia Postop Eval I: Assessment Summary Airway patent Yes 02/18/25 14:54 Spontaneous unlabored Yes 02/18/25 14:54 respirations Mental status Awake 02/18/25 14:54 nausea No 02/18/25 14:54 Vomiting No 02/18/25 14:54 Anesthesia Postop Eval I: Fluid Summary Crystalloid volume administer 600 02/18/25 14:54 (ml) Colloids volume administered ( ml) Blood Product volume administered (ml) Total IV fluid infused 600 02/18/25 14:54 Anesthesia Postop Eval I: Summary Notes Anesthesia Complication No 02/18/25 14:54 Anesthesia Complication Comment: Post-operative progress note Anesthesia: Postop Eval II Evaluation Mental status: Awake Pain Level: 2 nausea: No Vomiting: No 02/18/25 1455 <Electronically signed by Hari Castro MD > Date _ Hari Barneyignanatoly Signature: Date CC: ~ Signed [facility] Work Phone: Discharge summary Author Ananda Xavier [facility] Note Date/Time February 18, 2025 2:0 6pm [facility] Medical Records Department [address] [place] [address] Instructions for Home/Discharge Instructions 02/18/25 1404 MR#: [id number] Acct: [id number] Name: SWETHA GERARD Rep #:[id number] : 1980 44 From: Ananda Xavier MD PCP: Dr. Mirta Jacobson MD Status:[facility] Discharge Instructions Diet Discharge Diet: No restrictions Activity Ice area for (Minutes): 10 Lifting Restrictions: no lifting, pendulums 4x/day Additional Activity Instructions:: ok for hand wrist elbow rom, ok to remove sling at rest Dressing / Incision Call your doctor if your incision/area has: Continuous Slow Oozing, Sudden Increased Bleeding, Increased Pain/ Swelling, Increased Redness, Foul Smelling Discharge and Swelling at the incision site Call your doctor if you observe: Fever of 101 or Higher, Coldness, Increased Pain and Numbness or Tingling Change Dressing in: leave in place till F/U Cleanse incision/area with: Do not get Incision Wet Follow Up Care Please Follow Up With: Ananda Xavier MD When: 2 days or within 2 weeks Test Results: Test results from this visit will be discussed in further detail at your follow- up appointment, if applicable. Discharge Plan Admission Attending Provider: Ananda Xavier Primary Care Provider: Mirta Jacobson Instructions Patient Instructions: After Shoulder Arthroscopy Print Language: Kosovan Discharge Orders/Prescriptions Prescriptions: New oxycodone-acetaminophen [Endocet] 2.5-325 mg tablet 1 tab PO Q4H MDD 6 PRN (Reason: pain) 3 Days Qty: 20 0RF No Action clonidine HCl 0.2 mg tablet 0.2 mg PO QHS Patient Comments: [NO ORIGINAL SIG] albuterol 90 mcg/actuation Aerosol 90 mcg INHALATION PRN PRN (Reason: ASTHMA) loratadine [Claritin] 10 mg Tablet 10 mg PO PRN PRN (Reason: ALLERGIES) cholecalciferol (vitamin D3) 1,250 mcg (50,000 unit) capsule 1,250 mcg PO FR meloxicam 7.5 mg tablet 7.5 mg PO BID MDD 2 PRN (Reason: pain) 14 Days Qty: 30 1RF Referrals / Follow Up: Mirta Jacobson MD [Primary Care Provider] - Disposition Disposition (needs filled in before D/C Order can be placed): Home, Self Care 02/18/25 1406<Electronically signed by Ananda Xavier MD>Ananda Xavier MD CC: Dr. Mirta Jacobson MD ~ Signed [facility] Work Phone: Evaluation note* Diagnosis Onset Date Resolution Status Gastroesophageal reflux disease acute [facility] Work Phone: Evaluation noteNo assessment information available [facility] Work Phone: Evaluation note* Diagnosis Onset Date Resolution Status Acute sinusitis, unspecified acute [facility] Work Phone: Reason for referral (narrative)No reason for referral [facility] Work Phone: Summary Purpose Family History No Family History Records Found Relationship Condition Age at Onset Recorded Date/T verónica brother Asthma Unknown Coronary artery disease Unknown Cerebrovascular accident (CVA) Unknown mother Disorder of thyroid Unknown daughter Seizure Unknown Advance Directives No Advanced Directives Records Found Advance Directive Response Recorded Date/ Time Living Will No September 07 2:49pm Power of Graduate Nurse No September 07, 2021 2:49pm Advance Directive Response Recorded Date/ Time Living Will No July 14 11:10am Power of Graduate Nurse No July 14, 2022 11:10am Advance Directive Response Recorded Date/ Time Living Will No July 14 10:10am Power of Graduate Nurse No July 14, 2022 10:10am Advance Directive Response Recorded Date/ Time Living Will No February 04, 2025 10:16am Do you have a Healthcare Power of Graduate Nurse? No February 04, 2025 10:16am Chief Complaint and Reason for Visit Chief Complaint 10 day f/u lap nisse n RC 09/14 SHOULDER PAIN Reason for Visit Gastroesophageal ref lux disease Chief Complaint abd pain Chief Complaint abd pain NECK PAIN Chief Complaint NECK PAIN BUE NEUROPATHY Chief Complaint SINUS DRAINAGE ADD LEFT SHOULDER XRAY Reason for Visit Acute sinusitis, uns pecified Chief Complaint SINUS DRAINAGE ADD LEFT SHOULDER XRAY OBESITY Reason for Visit Acute sinusitis, uns pecified Chief Complaint ADD LEFT SHOULDER XR AY OBESITY OBESITY Chief Complaint Admit Date LEFT SHOULDER November 28, 2024 1 0:16am LEFT SHOULDER PAIN December 22, 2024 11:50am CHEST CONGESTION/COUGH December 24 10:46am LEFT SHOULDER December 29, 2024 11:11am Left shoulder Arthroscopy, subacromial d ecompressi February 18, 2025 9:40am Left shoulder Arthroscopy, subacromial d ecompressi February 18, 2025 12:32pm Reason for Visit Admit Date Left shoulder pain November 28, 2024 1 0:16am Acute bronchitis December 24, 2024 10:46am Left rotator cuff tear December 29 11:11am Left shoulder pain December 29, 2024 11:11am Left rotator cuff tear February 18, 2025 9:40am Left shoulder pain February 18, 2025 9:4 0am Chief Complaint Admit Date LEFT SHOULDER PAIN December 22, 2024 11:50am CHEST CONGESTION/COUGH December 24 10:46am LEFT SHOULDER December 29, 2024 11:11am Left shoulder Arthroscopy, subacromial d ecompressi February 18, 2025 9:40am Left shoulder Arthroscopy, subacromial d ecompressi February 18, 2025 12:32pm left shoulder February 20, 2025 9:5 5am left shoulder March 05, 2025 10:00a m LEFT SHOULDER April 02, 2025 9:47a m Reason for Visit Admit Date Acute bronchitis December 24, 2024 10:46am Left rotator cuff tear December 29 11:11am Left shoulder pain December 29, 2024 11:11am Left rotator cuff tear February 18, 2025 9:40am Left shoulder pain February 18, 2025 9:4 0am Left rotator cuff tear February 20, 2025 9:55am Left shoulder pain February 20, 2025 9:5 5am Left rotator cuff tear March 05, 2025 10: 00am Left rotator cuff tear April 02, 2025 9: 47am Chief Complaint Admit Date CHEST CONGESTION/COUGH December 24 10:46am LEFT SHOULDER December 29, 2024 11:11am Left shoulder Arthroscopy, subacromial d ecompressi February 18, 2025 9:40am Left shoulder Arthroscopy, subacromial d ecompressi February 18, 2025 12:32pm left shoulder February 20, 2025 9:5 5am left shoulder March 05, 2025 10:00a m LEFT SHOULDER April 02, 2025 9:47a m Chief Complaint Admit Date Left shoulder Arthroscopy, subacromial d ecompressi February 18, 2025 9:40am Left shoulder Arthroscopy, subacromial d ecompressi February 18, 2025 12:32pm left shoulder February 20, 2025 9:5 5am left shoulder March 05, 2025 10:00a m LEFT SHOULDER April 02, 2025 9:47a m LEFT SHOULDER May 11, 2025 9:52a m Reason for Visit Admit Date Left rotator cuff tear February 18, 2025 9:40am Left shoulder pain February 18, 2025 9:4 0am Left rotator cuff tear February 20, 2025 9:55am Left shoulder pain February 20, 2025 9:5 5am Left rotator cuff tear March 05, 2025 10: 00am Left rotator cuff tear April 02, 2025 9: 47am Left rotator cuff tear May 11, 2025 9: 52am Left shoulder pain May 11, 2025 9:52a m Chief Complaint Admit Date LEFT SHOULDER April 02, 2025 9:47a m LEFT SHOULDER May 11, 2025 9:52a m LEFT SHOULDER July 13, 2025 9:52am Reason for Visit Admit Date Left rotator cuff tear April 02, 2025 9: 47am Left rotator cuff tear May 11, 2025 9: 52am Left shoulder pain May 11, 2025 9:52a m Left rotator cuff tear July 13 9:52am Additional Source Comments INFORMATION SOURCE (unrecogn ized section and content) DATE CREATED AUTHOR 05/01/2018 [facility] DATE CREATED AUTHOR AUTHOR'S ORGANIZ ATION 07/14/2025 [facility] DATE CREATED AUTHOR AUTHOR'S ORGANIZ ATION 07/22/2025 [facility] Goals (unrecognized section and content) Goals may be documented in a n alternate sectionGoals may be documented in an alternate sectionGoals may be documented in an alternate sectionGoals may be documented in an alternate sectionGoals may be documented in an alternate sectionGoals may be documented in an alternate sectionGoals may be documented in an alternate sectionGoals may be documented in an alternate section Care Teams (unrecognized sec tion and content) Team Status: Active Member Role Status Dates Dr. Mirta Jacobson MD Family Provider Active Dr. Mirta Jacobson MD Primary Care Provider Active Team Status: Inactive Member Role Status Dates Dr. Mirta Jacobson MD Primary Care Pr ovider, Attending Provider, Referring Provider Active Team Status: Inactive Member Role Status Dates Dr. Mirta Jacobson MD Primary Care Provider, Referr ing Provider Active Deandre PINEDA, [place] Attending Provider Active Team Status: Active Member Role Status Dates Dr. Mirta Jacobson MD Primary Care Provider Active Team Status: Inactive Member Role Status Dates Dr. Mirta Jacobson MD Primary Care Provider Active Start: October 22, 2024 End: October 22, 2024 Dr. Mirta Jacobson MD Attending Provider Active Start: October 22, 2024 End: October 22, 2024 Dr. Mirta Jacobson MD Referring Provider Active Start: October 22, 2024 End: October 22, 2024 Team Status: Inactive Member Role Status Dates Dr. Mirta Jacobson MD Primary Care Provider Active Start: November 28, 2024 End: November 28, 2024 Dr. Mirta Jacobson MD Referring Provider Active Start: November 28, 2024 End: November 28, 2024 Ananda Xavier MD Attending Provider Active St art: November 28, 2024 End: November 28, 2024 Team Status: Inactive Member Role Status Dates Dr. Mirta Jacobson MD Primary Care Provider Active Start: December 22, 2024 End: December 22, 2024 Ananda Xavier MD Attending Provider Active St art: December 22, 2024 End: December 22, 2024 Ananda Xavier MD Referring Provider Active St art: December 22, 2024 End: December 22, 2024 Team Status: Inactive Member Role Status Dates Dr. Mirta Jacobson MD Primary Care Provider Active Start: December 24, 2024 End: December 24, 2024 Dr. Mirta Jacobson MD Referring Provider Active Start: December 24, 2024 End: December 24, 2024 EDWIN Blackwell Attending Provider Active Sta rt: December 24, 2024 End: December 24, 2024 Team Status: Inactive Member Role Status Dates Dr. Mirta Jacobson MD Primary Care Provider Active Start: December 29, 2024 End: December 29, 2024 Dr. Mirta Jacobson MD Referring Provider Active Start: December 29, 2024 End: December 29, 2024 Ananda Xavier MD Attending Provider Active St art: December 29, 2024 End: December 29, 2024 Team Status: Inactive Member Role Status Dates Dr. Mirta Jacobson MD Primary Care Provider Active Start: February 18, 2025 End: February 18, 2025 Ananda Xavier MD Attending Provider Active St art: February 18, 2025 End: February 18, 2025 Ananda Xavier MD Referring Provider Active St art: February 18, 2025 End: February 18, 2025 Team Status: Active Member Role Status Dates Dr. Mirta Jacobson MD Primary Care Provider Active Start: February 18, 2025 Ananda Xavier MD Attending Provider Active St art: February 18, 2025 Ananda Xavier MD Referring Provider Active St art: February 18, 2025 Ananda Xavier MD Other Provider Active Start: February 18, 2025 Team Status: Inactive Member Role Status Dates Dr. Mirta Jacobson MD Primary Care Provider Active Start: February 20, 2025 End: February 20, 2025 Dr. Mirta Jacobson MD Referring Provider Active Start: February 20, 2025 End: February 20, 2025 Ananda Xavier MD Attending Provider Active St art: February 20, 2025 End: February 20, 2025 Team Status: Inactive Member Role Status Dates Dr. Mirta Jacobson MD Primary Care Provider Active Start: March 05, 2025 End: March 05, 2025 Dr. Mirta Jacobson MD Referring Provider Active Start: March 05, 2025 End: March 05, 2025 Ananda Xavier MD Attending Provider Active St art: March 05, 2025 End: March 05, 2025 Team Status: Inactive Member Role Status Dates Dr. Mirta Jacobson MD Primary Care Provider Active Start: April 02, 2025 End: April 02, 2025 Dr. Mirta Jacobson MD Referring Provider Active Start: April 02, 2025 End: April 02, 2025 Ananda Xavier MD Attending Provider Active St art: April 02, 2025 End: April 02, 2025 Team Status: Inactive Member Role Status Dates Dr. Mirta Jacobson MD Primary Care Provider Active Start: April 15, 2025 End: April 15, 2025 Dr. Mirta Jacobson MD Attending Provider Active Start: April 15, 2025 End: April 15, 2025 Dr. Mirta Jacobson MD Referring Provider Active Start: April 15, 2025 End: April 15, 2025 Team Status: Active Member Role/Relationship Status Dates Dr. Mirta Jacobson MD Primary Care Provider Active Team Status: Inactive Member Role/Relationship Status Dates Dr. Mirta Jacobson MD Primary Care Provider Active Start: February 18, 2025 End: February 18, 2025 Ananda Xavier MD Attending Provider Active St art: February 18, 2025 End: February 18, 2025 Ananda Xavier MD Referring Provider Active St art: February 18, 2025 End: February 18, 2025 Team Status: Active Member Role/Relationship Status Dates Dr. Mirta Jacobson MD Primary Care Provider Active Start: February 18, 2025 Ananda Xavier MD Attending Provider Active St art: February 18, 2025 Ananda Xavier MD Referring Provider Active St art: February 18, 2025 Ananda Xavier MD Other Provider Active Start: February 18, 2025 Team Status: Inactive Member Role/Relationship Status Dates Dr. Mirta Jacobson MD Primary Care Provider Active Start: February 20, 2025 End: February 20, 2025 Dr. Mirta Jacobson MD Referring Provider Active Start: February 20, 2025 End: February 20, 2025 Ananda Xavier MD Attending Provider Active St art: February 20, 2025 End: February 20, 2025 Team Status: Inactive Member Role/Relationship Status Dates Dr. Mirta Jacobson MD Primary Care Provider Active Start: March 05, 2025 End: March 05, 2025 Dr. Mirta Jacobson MD Referring Provider Active Start: March 05, 2025 End: March 05, 2025 Ananda Xavier MD Attending Provider Active St art: March 05, 2025 End: March 05, 2025 Team Status: Inactive Member Role/Relationship Status Dates Dr. Mirta Jacobson MD Primary Care Provider Active Start: April 02, 2025 End: April 02, 2025 Dr. Mirta Jacobson MD Referring Provider Active Start: April 02, 2025 End: April 02, 2025 Ananda Xavier MD Attending Provider Active St art: April 02, 2025 End: April 02, 2025 Team Status: Inactive Member Role/Relationship Status Dates Dr. Mirta Jacobson MD Primary Care Provider Active Start: April 15, 2025 End: April 15, 2025 Dr. Mirta Jacobson MD Attending Provider Active Start: April 15, 2025 End: April 15, 2025 Dr. Mirta Jacobson MD Referring Provider Active Start: April 15, 2025 End: April 15, 2025 Team Status: Inactive Member Role/Relationship Status Dates Dr. Mirta Jacobson MD Primary Care Provider Active Start: May 11, 2025 End: May 11, 2025 Dr. Mirta Jacobson MD Referring Provider Active Start: May 11, 2025 End: May 11, 2025 Ananda Xavier MD Attending Provider Active St art: May 11, 2025 End: May 11, 2025 Team Status: Inactive Member Role/Relationship Status Dates Dr. Mirta Jacobson MD Primary Care Provider Active Start: April 02, 2025 End: April 02, 2025 Dr. Mirta Jacobson MD Referring Provider Active Start: April 02, 2025 End: April 02, 2025 Ananda Xavier MD Attending Provider Active St art: April 02, 2025 End: April 02, 2025 Team Status: Inactive Member Role/Relationship Status Dates Dr. Mirta Jacobson MD Primary Care Provider Active Start: April 15, 2025 End: April 15, 2025 Dr. Mirta Jacobson MD Attending Provider Active Start: April 15, 2025 End: April 15, 2025 Dr. Mirta Jacobson MD Referring Provider Active Start: April 15, 2025 End: April 15, 2025 Team Status: Inactive Member Role/Relationship Status Dates Dr. Mirta Jacobson MD Primary Care Provider Active Start: May 11, 2025 End: May 11, 2025 Dr. Mirta Jacobson MD Referring Provider Active Start: May 11, 2025 End: May 11, 2025 Ananda Xavier MD Attending Provider Active St art: May 11, 2025 End: May 11, 2025 Team Status: Inactive Member Role/Relationship Status Dates Dr. Mirta Jacobson MD Primary Care Provider Active Start: July 13, 2025 End: July 13, 2025 Dr. Mirta Jacobson MD Referring Provider Active Start: July 13, 2025 End: July 13, 2025 Ananda Xavier MD Attending Provider Active St art: July 13, 2025 End: July 13, 2025 FOR RECORDS PERTAINING TO PATIENTS WHO ARE [...] BE BASED ON THE PRIMARY CLINICAL RECORDS. [employer] provides no warranty or guarantee of the accuracy or completeness of information in this document.
[2025-11-04 17:28] LABS: Hematocrit 35.6 % (37-47); Hemoglobin 11.7 g/dL (12.0-15.0); Immature Granulocytes Count 0.030 X10^3/uL (0.0-0.0); Mean Corp Hgb Conc 32.9 g/dL (32-36); Mean Corpuscular Volume 89.7 fL (81-99); Mean Platelet Vol. 9.7 fl (6.2-12.0); NRBC Flagged by Analyzer 0 % (0-5); Platelet Count 219 K/mm3 (150-450); RBC Distribution Width CV 13.2 % (11.6-14.6); RBC Distribution Width SD 42.8 fl (35.1-43.9); Red Blood Count 3.97 M/mm3 (4.2-5.4); White Blood Count 7.7 K/mm3 (4.4-11.0)
[2025-11-04 17:54] LABS: AST(SGOT) 25 U/L (<=31); Alanine Aminotransfer ALT/SGPT 29 U/L (<=34); Albumin, Serum 4.1 g/dL (3.5-5.0); Alkaline Phosphatase 43 U/L (35-104); Anion Gap 9 (7-18); BUN 13 mg/dL (4-19); BUN/Creat Ratio 16.1 RATIO (10-20); Calcium,Total 9.4 mg/dL (7.6-11.0); Carbon Dioxide 25.3 mmol/L (20.0-29.0); Chloride 105 mmol/L (96-106); Cholesterol 201 mg/dL (<=200); Globulin 2.6 g/dL (2.2-4.2); Glucose 91 mg/dL (70-99); Low Density Lipoprotein Calc. 106 mg/dL; Potassium 3.7 mmol/L (3.5-5.1); Triglycerides 181 mg/dL; Very Low Density Lipoprotein 36 mg/dL (5-40); Vitamin D,25 Hydroxy 56.7 ng/mL (30-100); cholesterol:hdl ratio screen 3.12
== END | disposition home or self-care (01) ==
LOC: MFPLAB 15:42
PROVIDERS: PCP Family Medicine; Visit Provider Family Medicine
DX: E66.9 Obesity, unspecified (principal)
CPT/HCPCS: 36415; 80053; 80061; 82306; 85025